=== PATIENT | female | born 1960 | race Caucasian/White ===

== ENCOUNTER → 2016-06-29 | Outpatient (CLI) | payer OTHER ==
[~2016-06-29] MED LIST: ALBUAER INH; AMT/50 PO; APIX1TAB3 PO; CHOL100010 PO; CRG25 PO; CYAN100020 PO; DLC5 PO; ESCI10TA17 PO; HYDR-4852 PO; HYDR12.56 PO; LEVO125T4 PO; MRLP17X PO; NTRGSL/4 UT; POTA1POW PO; PRLSR20 PO; ZCR20 PO
--- NOTE | 2016-06-29 16:04 | DIAGNOSTIC IMAGING REPORT ---
CT SCAN OF THE CHEST WITHOUT IV CONTRAST CLINICAL HISTORY: Sarcoidosis. Pulmonary nodule. COMPARISON STUDY: Chest CT dated 10/01/2015. TECHNIQUE: CT scan of the thorax was performed from the thoracic inlet to the upper abdomen. Images are reviewed in the axial, sagittal, and coronal planes. IV contrast was not administered for this examination as per the front clinician. CT DOSE: 877.17 mGy.cm FINDINGS: Thyroid: Atrophic versus surgically absent. Thoracic aorta: The thoracic aorta is normal in caliber and demonstrates standard 3-vessel arch anatomy. Heart: A 2-lead cardiac pacemaker is present in the left chest wall. Leads terminate in the right atrial appendage and the right ventricle. The heart is normal in size and there is a trace pericardial effusion. There are scattered coronary artery calcifications. The pulmonary trunk is normal in caliber. Lungs and pleural spaces: There are subtle emphysematous changes suggested at the apices There is no airspace consolidation or pleural effusion. Scattered calcified granulomas are identified. The trachea and central airways are clear. There is an 11 mm groundglass nodule in the left lower lobe seen on axial image #154. This has increased in conspicuity from previous . A 3 mm groundglass nodule in the left upper lobe as seen on image #95 is unchanged. No new pulmonary nodules are identified. Mediastinum: There are calcified mediastinal lymph nodes. No pathologically enlarged mediastinal lymph nodes are seen. Estelle: Not well assessed without IV contrast. There are small calcified hilar lymph nodes. Axillae: There is no axillary lymphadenopathy. Upper abdomen: There is evidence of hepatic steatosis. The patient is status post cholecystectomy. There is glandular atrophy of the visualized pancreas. Skeletal structures: The skeletal structures are osteopenic. No lytic or blastic bony lesions are seen. Mild degenerative changes are noted in the thoracic spine. IMPRESSION: 1. Suspect subtle emphysematous change. There is no airspace consolidation or pleural effusion. 2. There is no mediastinal or hilar lymphadenopathy. 3. There is evidence of remote granulomas infection, including calcified mediastinal and hilar lymph nodes as well as numerous small calcified pulmonary granulomas. 4. Again seen are 2 groundglass nodules within the left lung. The largest nodule in the left lower lobe appears increasingly conspicuous and has likely modestly increased in size from previous. This now measures a maximum of 11 mm (the previous measurement of 5 mm was likely underestimated). A 6 month follow-up examination is recommended as a low-grade neoplasm could have this appearance. Electronically signed by: Amrik Reed M.D. 06/29/2016 4:02 PM Dictated Date/Time: 06/29/2016 3:53 PM
== END | disposition home or self-care (01) ==
LOC: C.CTS 15:41
PROVIDERS: ATTEND Physician Assistant
DX: D86.9 Sarcoidosis, unspecified (principal); R91.1 Solitary pulmonary nodule

== ENCOUNTER 2017-05-31 11:04 | Inpatient (IN) | payer OTHER ==
[~2017-05-31] VITALS: Ht 157.5 cm; Wt 102.3 kg
[~2017-05-31 11:04] MED LIST changes: +CEFU1TAB36 PO; -LEVO125T4 PO; +LEVO125T5 PO
[2017-05-31] MEDS ORDERED: ACETAMINOPHEN 500 MG TAB PO STA (11:15)
[2017-05-31] MEDS ORDERED: NITROGLYCERIN 2% OINTMENT 30GM TUBE EXT ONE (11:15)
--- NOTE | 2017-05-31 11:43 | DIAGNOSTIC IMAGING REPORT ---
CHEST ONE VIEW PORTABLE CLINICAL HISTORY: CHEST PAIN dyspnea COMPARISON STUDY: 11/23/2015 FINDINGS: Mild stable cardiomegaly. Permanent bipolar cardiac pacemaker in good position. Lungs are clear. Diaphragms are smooth. IMPRESSION: No acute process. The above report was generated using voice recognition software. It may contain grammatical, syntax or spelling errors. Electronically signed by: Jacky Baldwin M.D. 05/31/2017 11:42 AM Dictated Date/Time: 05/31/2017 11:42 AM
[2017-05-31 11:45] LABS: HEMATOCRIT 41.5 % (37-47); HEMOGLOBIN 14.4 g/dL (12.0-16.0); MEAN CELL VOLUME 91.4 fL (80-100); MEAN CORPUSCULAR HEMOGLOBIN 31.7 pg (25-34); MEAN CORPUSCULAR HGB CONC 34.7 g/dl (32-36); MEAN PLATELET VOLUME 9.2 fL (7.4-10.4); PLATELET COUNT 278 K/uL (130-400); RED CELL DISTRIBUTION WIDTH CV 14.3 % (11.5-14.5); RED CELL DISTRIBUTION WIDTH SD 46.9 fL (36.4-46.3); WHITE BLOOD COUNT 7.42 K/uL (4.8-10.8)
--- NOTE | 2017-05-31 11:46 | EMERGENCY ROOM VISIT NOTE ---
History Report prepared by Ava: Jennifer Delaney Under the Supervision of: Dr. Amrik Bruno M.D. First contact with patient: 11:09 Chief Complaint: CHEST PAIN Stated Complaint: CHEST PAIN Nursing Triage Summary: Pt. presents via ALS transport from home with reports of chest pain starting around 0900 this morning. She reports that the pain started in the left shoulder and then became more localized in the chest, describes the pain as squeezing. Pt. took two nitro at home without relief, so she called EMS. Pt. has pacemaker/defibrillater. History of sarcoidosis. EMS administered additonal dose of nitro which bbrought her chest pain from 10/10 pain to 2/10, 4mg of zofran for nausea and gave 324mg of ASA. History of Present Illness The patient is a 57 year old female who presents to the Emergency Room with complaints of an episode of left-sided chest pain beginning 2 hours [employer]. Around 9am this morning the patient developed left-sided chest pain while she was sitting in her chair. Her pain started in her left shoulder and radiated into her left breast. She describes her pain as "squeezing" and rates it as a 10/10 in severity. The patient took a nitro and waited 5 minutes. Her pain did not resolve so she took a second nitro and called an ambulance. The patient received 2 more nitro, 4 mg of Zofran, and 324 mg of aspirin. She states that about 45 minutes after her pain started, it resolved. The patient reports nausea. She denies vomiting, shortness of breath, and diaphoresis. She is currently complaining of a headache. The patient has a history of FL and sarcoidosis. She has a pacemaker/defibrillator. Source of History: patient Onset: 2 hours [employer] Position: chest Symptom Intensity: 10/10 Quality: other (squeezing) Timing: other (episode ) Modifying Factors (Relieving): other (nitro/aspirin/zofran) Associated Symptoms: + headache, + nausea, No diaphoresis, No SOB, No vomiting Review of Systems See HPI for pertinent positives & negatives. A total of 10 systems reviewed and were otherwise negative. Past Medical & Surgical Medical Problems: (1) Cardiac pacemaker in situ (2) Chest pain (3) Osteoarthrosis (4) Sarcoidosis, unspecified Family History Cancer Social History Smoking Status: Never Smoker Current/Historical Medications Scheduled Amitriptyline Hcl (Elavil), 75 MG PO HS Apixaban (Eliquis), 2.5 MG PO BID Biotin (Biotin 5000), 1 CAP PO DAILY Cholecalciferol (Vitamin D3), 1 TAB PO DAILY Cyanocobalamin (Vitamin B-12), 1,000 MCG PO DAILY Duloxetine Hcl (Cymbalta), 60 MG PO DAILY Fluticasone Furoate-Vilanterol (Breo Ellipta), 1 PUFF INH DAILY Folic Acid (Folvite), 1 MG PO DAILY Methotrexate (Methotrexate), 8 TAB PO WK Metoprolol Succ (Toprol Xl) (Toprol-Xl ), 50 MG PO BID Omeprazole (Prilosec), 40 MG PO DAILY Potassium Chloride (Micro-K Ext Rel), 10 MEQ PO DAILY Simvastatin (Zocor), 20 MG PO QPM Scheduled PRN Hydrocodone/Acetaminophen ([place]ebbetts 10/325 Tab), 1 TAB PO Q6H PRN for Pain Loratadine (Claritin), 10 MG PO DAILY PRN for Allergic Reaction Lorazepam (Ativan), 0.5-1 MG PO TID PRN for Anxiety Tizanidine (Zanaflex ), 4 MG PO Q6H PRN for Muscle Spasms Allergies Coded Allergies: Lidocaine (Unverified Allergy, Severe, ITCHY,RASH, 05/31/17) Penicillins (Unverified Allergy, Severe, ITCHY,RASH, 05/31/17) Adhesives (Verified Allergy, Unknown, RASH, SKIN IRRATATION, 05/31/17) Iodinated Diagnostic Agents (Verified Allergy, Unknown, UNKNOWN, 05/31/17) Lisinopril (Verified Allergy, Unknown, ANAPHYLAXIS, 05/31/17) Physical Exam Vital Signs Date Time Temp Pulse Resp B/P (MAP) Pulse Ox O2 Delivery O2 Flow Rate FiO2 05/31/17 11:44 71 16 127/71 99 05/31/17 11:20 75 05/31/17 11:05 94 Room Air 05/31/17 11:05 36.6 81 16 142/90 94 Room Air 05/31/17 11:05 94 Room Air Physical Exam GENERAL: Patient is in no acute distress. HEENT: No acute trauma, normocephalic atraumatic, mucous membranes moist, no nasal congestion, no scleral icterus. NECK: No stridor, no adenopathy, no meningismus, trachea is midline. LUNGS: Clear to auscultation bilaterally, no wheeze, no rhonchi, breath sounds equal. HEART: Without murmurs gallops or rubs, regular rate and rhythm. ABDOMEN: Soft, nontender, bowel sounds positive, no hernias, no peritonitis. EXTREMITIES: No cyanosis or edema, full range of motion of all the joints without pain or difficulty, no signs for acute trauma. NEUROLOGIC: Oriented x 3, no acute motor or sensory deficits, no focal weakness. SKIN: No rash, no jaundice, no diaphoresis. Medical Decision & Procedures ER Provider Diagnostic Interpretation: Radiology results as stated below per my review and radiologist interpretation: CHEST ONE VIEW PORTABLE CLINICAL HISTORY: CHEST PAIN dyspnea COMPARISON STUDY: 11/23/2015 FINDINGS: Mild stable cardiomegaly. Permanent bipolar cardiac pacemaker in good position. Lungs are clear. Diaphragms are smooth. IMPRESSION: No acute process. The above report was generated using voice recognition software. It may contain grammatical, syntax or spelling errors. Electronically signed by: Jacky Baldwin M.D. 05/31/2017 11:42 AM Dictated Date/Time: 05/31/2017 11:42 AM Laboratory Results 05/31/17 11:30 05/31/17 11:30 Test 05/31/17 11:30 Red Blood Count 4.54 M/uL (4.2-5.4) Mean Corpuscular Volume 91.4 fL (80-100) Mean Corpuscular Hemoglobin 31.7 pg (25-34) Mean Corpuscular Hemoglobin Concent 34.7 g/dl (32-36) RDW Standard Deviation 46.9 fL (36.4-46.3) RDW Coefficient of Variation 14.3 % (11.5-14.5) Mean Platelet Volume 9.2 fL (7.4-10.4) Prothrombin Time 10.0 SECONDS (9.0-12.0) Prothromb Time International Ratio 1.0 (0.9-1.1) Activated Partial Thromboplast Time 28.9 SECONDS (21.0-31.0) Partial Thromboplastin Ratio 1.1 Anion Gap 9.0 mmol/L (3-11) Est Creatinine Clear Calc Drug Dose 83.4 ml/min Estimated GFR () 82.2 Estimated GFR (Non- 70.9 BUN/Creatinine Ratio 7.9 (10-20) Calcium Level 8.8 mg/dl (8.5-10.1) Magnesium Level 2.2 mg/dl (1.8-2.4) Total Bilirubin 0.3 mg/dl (0.2-1) Aspartate Amino Transf (AST/SGOT) 20 U/L (15-37) Alanine Aminotransferase (ALT/SGPT) 35 U/L (12-78) Alkaline Phosphatase 121 U/L (45-117) Troponin I < 0.015 ng/ml (0-0.045) Total Protein 7.0 gm/dl (6.4-8.2) Albumin 3.3 gm/dl (3.4-5.0) Globulin 3.7 gm/dl (2.5-4.0) Albumin/Globulin Ratio 0.9 (0.9-2) Thyroid Stimulating Hormone (TSH) 1.110 uIu/ml (0.300-4.500) Laboratory results reviewed by me. Medications Administered Medications (Trade) Dose Ordered Sig/Yessy Route Start Time Stop Time Status Last Admin Dose Admin Nitroglycerin (Nitroglycerin 2% Oint) 1 inch NOW ONCE EXT 05/31/17 11:15 05/31/17 11:17 DC 05/31/17 11:43 1 INCH Acetaminophen (Tylenol Tab) 1,000 mg NOW STAT PO 05/31/17 11:15 05/31/17 11:17 DC 05/31/17 11:42 1,000 MG ECG Per My Interpretation Indication: chest pain Rate (beats per minute): 81 Rhythm: normal sinus Findings: LBBB, no ectopy, other (No ST elevation) Comparison ECG Date: no prior available ED Course 1109: The patient was evaluated in room C3. A complete history and physical exam was performed. 1115: Tylenol 1000 mg PO, Nitroglycerin 1 inch EXT 1225: I spoke with Dr. Puente. We discussed the patient's case. The patient will be evaluated by the [facility] for further management. 1229: I reassessed the patient at this time. She is resting comfortably. I discussed the results and treatment plan with the patient. I answered all pertaining questions that she had. She expressed understanding and verbalized agreement. Medical Decision Differential diagnoses includes FL, angina, aortic dissection, PE, pneumonia, pneumothorax, musculoskeletal pain, anemia. There is no leukocytosis or concerning anemia. No significant electrolyte abnormality, kidney failure or hepatitis. There is no coagulopathy. EKG shows a normal sinus rhythm with a left bundle-branch block, no acute ischemia. Cardiac enzyme testing times one is not consistent with acute cardiac injury. Chest film does not show pneumonia, mediastinal widening or pneumothorax. The patient had received aspirin and nitroglycerin prior to arrival, no further aspirin was given. The patient did receive 1 inch of Nitropaste. She received oral Tylenol for a headache. The patient is resting comfortably. Her pain has basically resolved. Given her cardiac history, given the relief with nitroglycerin and aspirin, further cardiac workup was felt warranted. I spoke to the patient and case management. The on-call hospitalist was consulted. Medication Reconcilliation Current Medication List: was personally reviewed by me Blood Pressure Screening Patient's blood pressure: Elevated blood pressure Blood pressure disposition: Elevated BP felt to be situational Consults Time Called: 1222 Consulting Physician: Dr. Puente Returned Call: [address] Puente. We discussed the patient's case. The patient will be evaluated by the [facility]ist Group for further management. Impression Primary Impression: Precordial chest pain Scribe Attestation The scribe's documentation has been prepared under my direction and personally reviewed by me in its entirety. I confirm that the note above accurately reflects all work, treatment, procedures, and medical decision making performed by me. Departure Information Dispostion Being Evaluated By Hospitalist Referrals Rico Mota M.D. (PCP) Patient Instructions My [facility]
[2017-05-31 11:47] LABS: PTT PATIENT 28.9 SECONDS (21.0-31.0)
[2017-05-31 12:10] LABS: ALBUMIN 3.3 gm/dl (3.4-5.0); ALT/SGPT 35 U/L (12-78); AST/SGOT 20 U/L (15-37); BLOOD UREA NITROGEN 7 mg/dl (7-18); CALCIUM 8.8 mg/dl (8.5-10.1); CARBON DIOXIDE 24 mmol/L (21-32); CREATININE 0.89 mg/dl (0.60-1.20); GLUCOSE 105 mg/dl (70-99); POTASSIUM 3.9 mmol/L (3.5-5.1); SODIUM 141 mmol/L (136-145)
[2017-05-31 12:14] LABS: ALKALINE PHOSPHATASE 121 U/L (45-117)
[2017-05-31] MEDS ORDERED: AMIT75TA2 PO (12:27)
[2017-05-31] MEDS ORDERED: OMEP40CA41 PO (12:27)
[2017-05-31] MEDS ORDERED: SIMV20TA2 PO (12:27)
[2017-05-31] MEDS ORDERED: CHOL1000 PO (12:27)
[2017-05-31] MEDS ORDERED: FLUT1INH INH (12:27)
[2017-05-31] MEDS ORDERED: DULO60CA44 PO (12:27)
[2017-05-31] MEDS ORDERED: CYAN50002 PO (12:27)
[2017-05-31] MEDS ORDERED: HYDR-4383 PO (12:27)
[2017-05-31] MEDS ORDERED: APIX1TAB PO (12:27)
[2017-05-31] MEDS ORDERED: POTA10CA28 PO (12:27)
[2017-05-31] MEDS ORDERED: METO100T44 PO (12:27)
[2017-05-31] MEDS ORDERED: FOLI1TAB8 PO (12:27)
[2017-05-31] MEDS ORDERED: METH2.5T PO (12:27)
[2017-05-31] MEDS ORDERED: BIOTCAP2 PO (12:27)
[2017-05-31] MEDS ORDERED: ZNF4 PO (12:27)
[2017-05-31] MEDS ORDERED: ATV/1 PO (12:27)
[2017-05-31] MEDS ORDERED: CLR10 PO (12:27)
--- NOTE | 2017-05-31 12:52 | History and Physical ---
History & Physical Date & Time of Service: May 31, 2017 at 12:52 Chief Complaint: Chest Pain Primary Care Physician: Rico Mota M.D. History of Present Illness Source: patient this is 57 yo F with medical hx of Sarcoidosis with Cardiac involvement , HTN . Hyperlipidemia , Hx of PE on Eliquis , presented with ER with complain of angina symptom since 9 am today morning Pt was sitting on the couch -felt severe crushing chest pain /heaviness with radiation to left arm , denies of dizzy spell or palpitation , felt SOB took 1 SL nitro with no improvement of symptom , did repeat 2 more SL and Called [address] to ER -pt was given full strength aspirin and SL nitro in ER she was chest pain free , feels very tired and wiped out did not feel any AICD firing has been having progressive SOB , ISAAC in past 2 months , walking up stairs, vacuuming makes her out of breath , needs to take multiple break denies of any chest heaviness associated with activity Pt has hx of DVT /PE in past , on Eliquis took AM dose this morning pt was recently treated with Keflex for sinus congestion , developed diarrhea , which has resolved denies of any fever or chills, no cough /no flu like symptom Social History Smoking Status: Never Smoker Multi-Drug Resistant Organisms History of MDRO: No Allergies Coded Allergies: Lidocaine (Unverified Allergy, Severe, ITCHY,RASH, 05/31/17) Penicillins (Unverified Allergy, Severe, ITCHY,RASH, 05/31/17) Adhesives (Verified Allergy, Unknown, RASH, SKIN IRRATATION, 05/31/17) Iodinated Diagnostic Agents (Verified Allergy, Unknown, UNKNOWN, 05/31/17) Lisinopril (Verified Allergy, Unknown, ANAPHYLAXIS, 05/31/17) Home Medications Scheduled Amitriptyline Hcl (Elavil), 75 MG PO HS Apixaban (Eliquis), 2.5 MG PO BID Biotin (Biotin 5000), 1 CAP PO DAILY Cholecalciferol (Vitamin D3), 1 TAB PO DAILY Cyanocobalamin (B-12), 1 TAB PO DAILY Duloxetine Hcl (Cymbalta), 60 MG PO DAILY Fluticasone Furoate-Vilanterol (Breo Ellipta), 1 PUFF INH DAILY Folic Acid (Folvite), 1 MG PO DAILY Methotrexate (Methotrexate), 8 TAB PO WK Metoprolol Succ (Toprol Xl) (Toprol-Xl ), 50 MG PO BID Omeprazole (Prilosec), 40 MG PO DAILY Potassium Chloride (Micro-K Ext Rel), 10 MEQ PO DAILY Simvastatin (Zocor), 20 MG PO QPM Scheduled PRN Hydrocodone/Acetaminophen (Ald[place] 10/325 Tab), 1 TAB PO Q6H PRN for Pain Loratadine (Claritin), 10 MG PO DAILY PRN for Allergic Reaction Lorazepam (Ativan), 0.5-1 MG PO TID PRN for Anxiety Tizanidine (Zanaflex ), 4 MG PO Q6H PRN for Muscle Spasms Review of Systems Constitutional: + weakness, + fatigue ENT: No hearing loss, No unusual epistaxis, No nasal symptoms, No sore throat, No tinnitus, No dental problems, No trouble swallowing, No problem reported Respiratory: + shortness of breath, + dyspnea on exertion Cardiovascular: + chest pain (substernal chest heaviness with radiation to left arm ) Abdomen: + diarrhea (resolved ), + problem reported (had diarrhea 2 days ago while on antibiotic , has resolved today ) Musculoskeletal: + joint pain (chronic bilateral arthitis pain ) Genitourinary - Female: No dysuria, No urinary frequency, No urinary urgency, No urinary incontinence, No urinary retention, No hematuria, No dysmenorrhea, No menorrhagia, No metrorrhagia, No rash, No vaginal bleeding, No vaginal discharge, No vaginal itching, No vulvodynia, No , No problem reported Neurologic: + weakness, + vertigo Physical Exam Vital Signs Date Time Temp Pulse Resp B/P (MAP) Pulse Ox O2 Delivery O2 Flow Rate FiO2 05/31/17 11:44 71 16 127/71 99 05/31/17 11:20 75 05/31/17 11:05 94 Room Air 05/31/17 11:05 36.6 81 16 142/90 94 Room Air 05/31/17 11:05 94 Room Air General Appearance: no apparent distress Head: normocephalic, atraumatic Eyes: normal inspection, PERRL, EOMI, sclerae normal ENT: normal ENT inspection Neck: thyroid normal, no JVD, no carotid bruits, trachea midline Respiratory/Chest: lungs clear, normal breath sounds, no respiratory distress Cardiovascular: regular rate, rhythm, no edema, no JVD, normal peripheral pulses Abdomen/GI: normal bowel sounds, non tender, soft Extremities/Musculoskelatal: normal inspection, no calf tenderness, normal capillary refill, no pedal edema Neurologic/Psych: no motor/sensory deficits, alert, oriented x 3 Skin: normal color, warm/dry, no rash Diagnostics Laboratory Results Results Past 24 Hours Test 05/31/17 11:30 Range/Units White Blood Count 7.42 4.8-10.8 K/uL Red Blood Count 4.54 4.2-5.4 M/uL Hemoglobin 14.4 12.0-16.0 g/dL Hematocrit 41.5 37-47 % Mean Corpuscular Volume 91.4 80-100 fL Mean Corpuscular Hemoglobin 31.7 25-34 pg Mean Corpuscular Hemoglobin Concent 34.7 32-36 g/dl RDW Standard Deviation 46.9 36.4-46.3 fL RDW Coefficient of Variation 14.3 11.5-14.5 % Platelet Count 278 130-400 K/uL Mean Platelet Volume 9.2 7.4-10.4 fL Prothrombin Time 10.0 9.0-12.0 SECONDS Prothromb Time International Ratio 1.0 0.9-1.1 Activated Partial Thromboplast Time 28.9 21.0-31.0 SECONDS Partial Thromboplastin Ratio 1.1 Sodium Level 141 136-145 mmol/L Potassium Level 3.9 3.5-5.1 mmol/L Chloride Level 108 98-107 mmol/L Carbon Dioxide Level 24 21-32 mmol/L Anion Gap 9.0 3-11 mmol/L Blood Urea Nitrogen 7 7-18 mg/dl Creatinine 0.89 0.60-1.20 mg/dl Est Creatinine Clear Calc Drug Dose 83.4 ml/min Estimated GFR () 82.2 Estimated GFR (Non- 70.9 BUN/Creatinine Ratio 7.9 10-20 Random Glucose 105 70-99 mg/dl Calcium Level 8.8 8.5-10.1 mg/dl Total Bilirubin 0.3 0.2-1 mg/dl Aspartate Amino Transf (AST/SGOT) 20 15-37 U/L Alanine Aminotransferase (ALT/SGPT) 35 12-78 U/L Alkaline Phosphatase 121 45-117 U/L Troponin I < 0.015 0-0.045 ng/ml Total Protein 7.0 6.4-8.2 gm/dl Albumin 3.3 3.4-5.0 gm/dl Globulin 3.7 2.5-4.0 gm/dl Albumin/Globulin Ratio 0.9 0.9-2 Diagnostic Radiology CHEST ONE VIEW PORTABLE CLINICAL HISTORY: CHEST PAIN dyspnea COMPARISON STUDY: 11/23/2015 FINDINGS: Mild stable cardiomegaly. Permanent bipolar cardiac pacemaker in good position. Lungs are clear. Diaphragms are smooth. IMPRESSION: No acute process. EKG Vent. rate 81 BPM MA interval 182 ms QRS duration 136 ms QT/QTc 426/494 ms P-R-T axes 36 -43 92 Normal sinus rhythm Left axis deviation Left bundle branch block Abnormal ECG No previous ECGs available Impression Assessment and Plan CHEST PAIN SYMPTOM EQUIVALENT FOR UNSTABLE ANGINA presents with left sided /central chest heaviness , discomfort since 9 am this morning with pain discomfort radiation to left arm required multiple dose on SL nitro ( x 4 ) to ease up the symptom ordered nitro paste in ER at present chest pain free no prior hx of CAD or SD Has cardiac cath in [facility] in 2013 -which showed normal coronaries, normal Rt ventricular pressure , normal LV function ECHO : normal LV except for asymmetric septal motion due to bundle branch block pt will be admitted to tele, serial cardiac markers ordered ( initial troponin negative ) resting ECHO , Cardiology eval , case D/w automobile sales consultant Cardiology NPO past midnight for possible stress test ( pt will need Nc stress test / unable to walk on treadmill due to bilateral knee arthritis ) pt is continued with Beta katie , statin , added Aspirin 81 mg daily HX OF CARDIAC SARCOIDOSIS S/P AICD PLACEMENT : Holter monitor in 2013 showed Mobitz type 2 block had pacemaker /AICD placed in 2013 pt denies of any recent AICD firing ordered for AICD /pace maker interrogation SARCOIDOSIS : Dx in 2005 with cardiac involvement follow with Rheumatology Dr Leyva Taked MTX once a week ( Sat ) /Folic Acid not on steroid PROLONG QTC : Qtc > 490 hold amitriptyline , Cymbalta daily EKG follow K /Mg level HTN : BP stable cont Beta katie HX OF ALLERGIC RHINITIS : Cont Out pt INH HYPERLIPIDEMIA on statin ordered for fasting lipid panel in AM DEPRESSION: Hold Cymbalta and Remeron for prolong Qtc HX OF PE AND DVT IN PAST : on Eliquis 2.5 mg BID took AM dose this AM FULL CODE DVT PROPHYLAXIS : on Eliquis DISPOSITION : expected to be discharged home when medically stable Cardiology follow up with Dr Tong Level of Care Telemetry Resuscitation Status FULL RESUSCITATION VTE Prophylaxis VTE Risk Assessment Done? Y/N: Yes Risk Level: Moderate Given or contraindicated: Other Anticoagulation (on Eliquis ) Additional Copies To Pj Tong, DO
[2017-05-31] MEDS ORDERED: ACETAMINOPHEN 325 MG TAB PO PRN (13:30)
[2017-05-31] MEDS ORDERED: POLYETHYLENE (MIRALAX) 17 GM PACK PO PRN (13:30)
[2017-05-31] MEDS ORDERED: MAGNESIUM HYDROXIDE SUSP 30 ML UDC PO PRN (13:30)
[2017-05-31] MEDS ORDERED: ONDANSETRON INJ 2 MG/ML 2 ML VIAL IV PRN (13:30)
[2017-05-31] MEDS ORDERED: IV FLUIDS COMPLETED PRN ×2 (13:45→15:45)
[2017-05-31] MEDS ORDERED: LORATADINE 10 MG TAB PO PRN (13:45)
[2017-05-31 13:55] VITALS: BP 136/82; PULSE 67; TEMP 36.5; O2SAT 99; Ht 157.5 cm; Wt 102.3 kg
[2017-05-31] MEDS ORDERED: CYAN10005 PO (14:32)
[2017-05-31] MEDS: NITROGLYCERIN 2% OINTMENT 30GM TUBE EXT SCH ×2 (14:38→19:44)
[2017-05-31 15:31] VITALS: BP 124/81; PULSE 70; TEMP 36.8; O2SAT 92
--- NOTE | 2017-05-31 15:45 | CARDIOLOGY CONSULTATION ---
DATE OF CONSULTATION: 05/31/2017 REFERRING: Dr. Puente. PRIMARY CARE PHYSICIAN: Dr. Mota at [facility]. INDICATIONS: Chest pain. 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 device, hypertension, hyperlipidemia, past DVT and pulmonary embolism on chronic Eliquis, history of associated arthritic issues with sarcoid, on chronic methotrexate suppression with intermittent corticosteroids. The patient notes having presented to the Emergency Room with symptoms of substernal chest pain radiating to the left axilla and arm, heavy pressure and pain beginning while at rest this morning. She took 2 sublingual nitroglycerins and an aspirin before calling 911. Symptoms eventually eased on the way to the Emergency Room with full strength aspirin and nitroglycerin. On presentation here noted marked fatigue and noted no further chest pain. EKG was nonrevealing with chronic left bundle branch block present. She noted no defibrillator activation was not aware of any tachypalpitations, has recently been treated for sinusitis and upper respiratory infection with Keflex, has had indigestion, diarrhea, GI upset as well. Notes no melena, hematochezia, dysuria or hematuria. Notes no interruption in her Eliquis or other medications. Notes no acute weight loss or gain. Notes no orthopnea, PND or peripheral edema. Has been evaluated for cardiac issues in the past, but last diagnostic cardiac catheterization performed in 2012 revealed no obstructive coronary artery disease. The patient other than fatigue now notes no acute complaints. ALLERGIES: LIDOCAINE, PENICILLIN, ADHESIVES, IODINATED CONTRAST, AND LISINOPRIL. MEDICATIONS: Prior to hospitalization were amitriptyline, apixaban 2.5 b.i.d., vitamin B12 1 tablet daily, Cymbalta 60 mg p.o. daily, folic acid 1 mg p.o. daily, methotrexate 8 mg weekly, metoprolol succinate 50 mg b.i.d., omeprazole 40 mg p.o. daily, potassium chloride 10 mEq p.o. daily, and Zocor 20 mg p.o. daily. PAST SURGICAL HISTORY: Notable for pacer defibrillator implantation, appendectomy, and cholecystectomy. FAMILY HISTORY: Positive for hypertension and malignancy. SOCIAL HISTORY: The patient is a nonsmoker, rare drinker. PHYSICAL EXAMINATION: GENERAL: The patient is currently pale appearing, age-appropriate female in no acute distress. VITAL SIGNS: Reveal a heart rate of 67; blood pressure 136/82, equal in both arms. HEENT: Normocephalic, atraumatic. Nares without discharge. Throat was clear. NECK: Supple without thyromegaly, lymphadenopathy, JVD. There are no carotid bruits. Carotid pulses are 2/4 without delay. LUNGS: Generally clear to auscultation. CARDIOVASCULAR: Regular. There is no S3 gallop. ABDOMEN: Soft, nontender. There is no palpable splenomegaly. There is no hepatojugular reflux. EXTREMITIES: Without cyanosis or clubbing. There is no peripheral edema. There is no palpable cord or Homans sign. NEUROLOGIC: The patient is answering questions appropriately. LABORATORY AND IMAGING DATA: Outpatient records reviewed, pacer defibrillator interrogation in December [address] Jase's device DR [id number] model, battery life at that time was 4.5 years with normal lead function. Laboratory studies since admission - EKG revealed sinus rhythm with left bundle branch block at a rate of 81. White cell count is 7.4, hemoglobin is 14.4, and hematocrit is 41.5. Sodium is 141, potassium is 3.9, chloride is 108, bicarbonate is 24, BUN is 7, and creatinine is 0.89. AST and ALT are normal. TSH is 1.1. Chest x-ray revealed no infiltrate or edema. 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 The patient presents now with severe chest pain. She has intermittent underlying corticosteroid use with chronic immunosuppressive therapy with methotrexate, recent course was notable for upper respiratory infection treated with Keflex with gastrointestinal upset. Symptoms, however, are suspicious for angina. Echocardiogram is nondiagnostic given the left bundle branch block. Initial troponin is negative despite extended episode of discomfort. Discussed options of management. PLAN: Will review echocardiogram ordered. Keep n.p.o. after midnight. Hold Eliquis this evening with thoughts of possible pursuing diagnostic cardiac catheterization as further evaluation. Topical nitrates have already been ordered, blood pressure and heart rate are controlled. She is already on the beta katie. Contrast allergy will be investigated as well as we will review current use of Eliquis at lower dose.
[2017-05-31] MEDS ORDERED: PERFLUTREN LIPID MICROSPHERE (DEFINITY) IV ONE (16:16)
[2017-05-31 19:10] VITALS: BP 124/76; PULSE 76; TEMP 36.7; O2SAT 92
[2017-05-31] MEDS: NITROGLYCERIN 0.4 MG SL PER TAB CHARGE SL PRN ×2 (19:29→19:38)
[2017-05-31 19:39] VITALS: BP 130/77; PULSE 78; O2SAT 92
[2017-05-31] MEDS ORDERED: APIXABAN 2.5 MG TAB PO SCH (21:00)
[2017-05-31] MEDS: METOPROLOL SUCC 50MG EXT REL TAB PO SCH (21:23)
[2017-05-31] MEDS: SIMVASTATIN 20 MG TAB PO SCH (21:24)
[2017-05-31] MEDS: HYDROCODONE/ACETAMI 10/325 TAB PO PRN (23:37)
[2017-05-31] MEDS: LORAZEPAM 0.5 MG TAB PO PRN (23:37)
[2017-06-01] VITALS (49 sets, daily range): BP systolic 106–184; BP diastolic 69–129; PULSE 65–99; TEMP 36.4–36.9; O2SAT 85–100
[2017-06-01] MEDS: MoRPHine SULFATE 2 MG/ML CARP IV PRN ×3 (01:54→12:39)
[2017-06-01] MEDS: NITROGLYCERIN 2% OINTMENT 30GM TUBE EXT SCH ×4 (01:59→21:58)
[2017-06-01] MEDS: NITROGLYCERIN 0.4 MG SL PER TAB CHARGE SL PRN ×2 (02:32→02:40)
[2017-06-01 08:02] LABS: HEMATOCRIT 38.9 % (37-47); HEMOGLOBIN 13.3 g/dL (12.0-16.0); MEAN CORPUSCULAR HEMOGLOBIN 31.4 pg (25-34); MEAN CORPUSCULAR HGB CONC 34.2 g/dl (32-36); MEAN PLATELET VOLUME 9.2 fL (7.4-10.4); PLATELET COUNT 316 K/uL (130-400); RED CELL DISTRIBUTION WIDTH CV 14.1 % (11.5-14.5)
[2017-06-01] MEDS: POTASSIUM CHLORIDE 10 MEQ TABCR PO SCH (08:27)
[2017-06-01] MEDS: HYDROCODONE/ACETAMI 10/325 TAB PO PRN ×2 (08:27→23:48)
[2017-06-01] MEDS: METOPROLOL SUCC 50MG EXT REL TAB PO SCH ×2 (08:27→22:01)
[2017-06-01] MEDS: CHOLECALCIFEROL 1000 INTER.UNIT TAB PO SCH (08:28)
[2017-06-01] MEDS: ASPIRIN 81 MG ECTAB PO SCH (08:29)
[2017-06-01] MEDS: CYANOCOBALAMIN 500 MCG TAB (VIT B-12) PO SCH (08:30)
[2017-06-01] MEDS: FLUTICASONE PROPIONATE NA SPR 16 GM BTL SCH (08:31)
[2017-06-01 08:32] LABS: CALCIUM 9.1 mg/dl (8.5-10.1); CREATININE 0.85 mg/dl (0.60-1.20); POTASSIUM 4.1 mmol/L (3.5-5.1)
[2017-06-01] MEDS ORDERED: NON-FORMULARY MEDICATION (Biotin (Biotin 5000) 1 CAP) PO SCH (09:00)
[2017-06-01] MEDS ORDERED: PANTOprazole SOD 40 MG TAB PO SCH (09:00)
--- NOTE | 2017-06-01 10:15 | ECHOCARDIOGRAM REPORT ---
*NOTICE TO RECEIVING [employer] This information is strictly Confidential and protected under [place] law. [place] law prohibits you from making any further disclosure of this information unless further disclosure is expressly permitted by the written consent of the person to whom it pertains or is authorized by law. A general authorization for the release of medical or other information is not sufficient for this purpose. Hospital accepts no responsibility if the information is made available to any other person, INCLUDING THE PATIENT. Interpretation Summary * Name: MARILYN YA Study Date: 05/31/2017 03:49 PM BP: 124/81 mmHg * Patient Location: C.2T\S\S239\S\1 HR: 67 * : 1960 (M/d/yyyy) Gender: Female Height: 63 in * Age: 57 yrs Ethnicity: [place] Weight: 254 lb * Ordering Physician: Jory Puente * Referring Physician: Self, Referred * Performed By: Michelle Long RDCS * * Reason For Study: CHEST PAIN * BSA: 2.1 m2 * -- Conclusions -- * Normal LV chamber size with mild concentric LVH. * Low normal LV systolic function with abnormal septal wall motion consistent with LBBB pattern, otherwise, normal. EF 50-55%. * Grade I diastolic dysfunction. * No significant valvular pathology. * Moderate sized epicardial fat pad is present. No significant pericardial effusion. Procedure Details * A contrast injection of Definity was performed to improve assessment of LV function. * Contrast was injected into an intravenous site in the left arm. * One vial of Definity ultrasound contrast was diluted in normal saline to a total volume of 10 ml. A total of '2' ml of solution was administered during imaging. * Lot # [id number] of Definity utilized for procedure. * Expiration date APR 28. * The attending nurse who injected the contrast agent was JES SHAH. Left Ventricle * The left ventricle is normal in size. * There is mild concentric left ventricular hypertrophy. * Left ventricular systolic function is low normal. * Ejection Fraction = 50-55%. * Septal motion is consistent with conduction abnormality. Right Ventricle * The right ventricular cavity size is normal (basal dimension <4.2 cm in right ventricular apical 4-chamber view). * There is a pacemaker lead in the right ventricle. * The right ventricular systolic function is normal as assessed by tricuspid annular plane systolic excursion (TAPSE) (normal >1.5 cm). Atria * The left atrial size is normal. * Right atrium not well visualized. * No ASD detected; PFO is not assessed. Mitral Valve * The mitral valve is normal in structure and function. Tricuspid Valve * The tricuspid valve is normal in structure and function. Aortic Valve * The aortic valve is normal in structure and function. Pulmonic Valve * The pulmonary valve is not well seen, but the Doppler examination is normal without significant regurgitation or stenosis. Great Vessels * The aortic root is normal size. Pericardium/Pleural * Moderate sized epicardial fat pad is present. No significant pericardial effusion. MMode 2D Measurements and Calculations IVSd 1.3 cm IVSs 1.5 cm LVIDd 4.4 cm LVIDs 3.3 cm LVPWd 1.2 cm LVPWs 1.4 cm IVS/LVPW 1.1 FS 25.7 % EDV(Teich) 87.3 ml ESV(Teich) 43.0 ml EF(Teich) 50.8 % EDV(cubed) 84.8 ml ESV(cubed) 34.8 ml EF(cubed) 59.0 % % IVS thick 18.4 % % LVPW thick 18.2 % LV mass(C)d 195.8 grams LV mass(C)dI 91.5 grams/m\S\2 LV mass(C)s 165.6 grams LV mass(C)sI 77.4 grams/m\S\2 SV(Teich) 44.4 ml SI(Teich) 20.7 ml/m\S\2 SV(cubed) 50.0 ml SI(cubed) 23.3 ml/m\S\2 Ao root diam 2.8 cm Ao root area 6.0 cm\S\2 LA dimension 3.7 cm LA/Ao 1.3 LVAd ap4 35.8 cm\S\2 LVLd ap4 8.0 cm EDV(MOD-sp4) 128.5 ml EDV(sp4-el) 135.2 ml LVAs ap4 22.5 cm\S\2 LVLs ap4 7.0 cm ESV(MOD-sp4) 57.3 ml ESV(sp4-el) 61.6 ml EF(MOD-sp4) 55.4 % EF(sp4-el) 54.4 % LVAd ap2 26.6 cm\S\2 LVLd ap2 7.1 cm EDV(MOD-sp2) 84.2 ml EDV(sp2-el) 85.0 ml LVAs ap2 15.9 cm\S\2 LVLs ap2 5.8 cm ESV(MOD-sp2) 36.0 ml ESV(sp2-el) 37.0 ml EF(MOD-sp2) 57.2 % EF(sp2-el) 56.5 % LVLd %diff -13.80 % EDV(MOD-bp) 111.3 ml LVLs %diff -19.70 % ESV(MOD-bp) 49.1 ml EF(MOD-bp) 55.9 % SV(MOD-sp4) 71.1 ml SI(MOD-sp4) 33.2 ml/m\S\2 SV(MOD-sp2) 48.1 ml SI(MOD-sp2) 22.5 ml/m\S\2 SV(MOD-bp) 62.2 ml SI(MOD-bp) 29.1 ml/m\S\2 SV(sp4-el) 73.6 ml SI(sp4-el) 34.4 ml/m\S\2 SV(sp2-el) 48.0 ml SI(sp2-el) 22.4 ml/m\S\2 Doppler Measurements and Calculations MV E max joe 41.1 cm/sec MV A max joe 68.7 cm/sec MV E/A 0.60 MV dec time 0.23 sec Ao V2 max 160.2 cm/sec Ao max PG 10.3 mmHg Ao max PG (full) 7.1 mmHg LV V1 max PG 3.2 mmHg LV V1 max 89.4 cm/sec TR max joe 206.8 cm/sec
[2017-06-01] MEDS ORDERED: METHYLPREDNISOLONE 125 MG VIAL ONE ×2 (10:48→14:27)
[2017-06-01] MEDS ORDERED: NiCARDipine HCL INJ 2.5 MG/ML 10 ML AMP ONE (10:48)
[2017-06-01] MEDS: FENTANYL CITRATE INJ 50 MCG/1 ML 2 ML VIAL ONE (10:48)
[2017-06-01] MEDS ORDERED: MIDAZOLAM HCL 1 MG/ML 2ML VIAL ONE (10:48)
[2017-06-01] MEDS ORDERED: HEPARIN SOD (PORCINE) 1000 UNIT/ML 10 ML VIAL ONE (10:48)
[2017-06-01] MEDS ORDERED: NITROGLYCERIN/D5W 100MCG/ML 20ML SYR ONE (10:49)
[2017-06-01] MEDS ORDERED: DiphenhydrAMINE HCL 50 MG/ML VIAL ONE (10:49)
[2017-06-01] MEDS ORDERED: RANITIDINE HCL 25 MG/ML INJ ONE (10:49)
--- NOTE | 2017-06-01 11:07 | Pre Sedation Assessment ---
Pre Sedation Assessment General Date of Sedation: Jun 01, 2017. Vital Signs Past 12 Hours Date Time Temp Pulse Resp B/P (MAP) Pulse Ox O2 Delivery O2 Flow Rate FiO2 06/01/17 08:00 Room Air 06/01/17 07:59 36.5 67 16 144/73 (96) 98 Nasal Cannula 2.0 06/01/17 04:00 Room Air 06/01/17 03:47 67 134/82 (99) 06/01/17 02:46 135/82 (99) 92 Nasal Cannula 2.0 06/01/17 02:36 128/80 (96) 95 Nasal Cannula 2.0 06/01/17 02:34 95 Nasal Cannula 2.0 06/01/17 02:33 36.4 75 24 143/80 (101) 91 Nasal Cannula 2.0 06/01/17 02:15 36.5 75 22 149/75 (99) 93 Room Air 06/01/17 00:10 36.9 65 16 124/69 (87) 94 Room Air 06/01/17 00:00 Room Air Review Cardiovascular: regular rate, rhythm, no edema Lungs: lungs clear Pre-Sedation Airway Assessment Smoking Status: Never Smoker Hx of Sleep Apnea: No Short Thick Neck: No Thyro-mental Distance: > 3 Finger Breadths Oral Cavity: WNL Mallampati Classification: Class II ASA Classification: Class III NPO Status Date of Last Intake of Fluids: May 31, 2017 Time of Last Intake of Fluids: 2100 Date of Last Intake of Solids: May 31, 2017 Time of Last Intake of Solids: 1800 Procedure Planning Contraindications for Sedation: None Current Medications Reviewed: Yes Notes The planned sedation has been discussed with the patient. Informed Consent was obtained. I have identified the patient, determined the appropriateness of sedation and have assessed the patient immediately prior to the procedure. All medicine(s) and interventions are by my order.
[2017-06-01] MEDS ORDERED: METOPROLOL TARTRATE 1 MG/ML VIAL ONE ×2 (11:35→11:44)
[2017-06-01] MEDS ORDERED: SODIUM CHLORIDE 0.9% 1000ML 1,000 ML IV SCH (11:56)
[2017-06-01] MEDS ORDERED: SODIUM CHLORIDE 0.9% 1000ML 250 ML IV PRN (11:56)
[2017-06-01] MEDS ORDERED: NITROGLYCERIN 0.4 MG SL PER TAB CHARGE SL PRN (12:00)
--- NOTE | 2017-06-01 12:13 | [facility] Post Operative Brief Note ---
Preliminary Procedure Note Procedure Date Jun 01, 2017. Pre-Procedure Diagnosis Angina AUC Score 8 Post-Procedure Diagnosis Normal Coronary Arteries Procedure(s) Performed Coronary Angiography, Left Heart Cath, Aortography Envelope Sealing Machine Operator Dr. Bernabe Martinez Vermin Exterminator(s) Rich Mauro Estimated Blood Loss <20cc Medication(s) Fentanyl (12.5 mcg IV x 4), Nicardipine (250 mg intraarterial x3), Nitroglycerin (200mcg intraarterial x2), Versed (1mg IV ), Lidocaine 1% (local infiltration) Preliminary Findings Right dominant coronary anatomy Normal coronary arteries Chest pain at completion of procedure Repeat coronary imaging, ao angiogram without abnormality Hypertensive blood pressure response Recommendations Medical therapy and/or Counseling Specimens None Fluids (cc crystalloids) 108 Anesthesia Start 1114 End 1154 Alyssa Clark Procedural Complication(s) None Disposition PCU
[2017-06-01] MEDS: LORAZEPAM 0.5 MG TAB PO PRN (12:17)
[2017-06-01] MEDS: ALUMINUM/MAGNESIUM/SIMETH (MAALOX MAX) 30 ML UDC PO PRN (12:20)
[2017-06-01] MEDS ORDERED: MoRPHine SULFATE 4 MG/ML 1 ML CARP\\VIAL IV STA (12:51)
--- NOTE | 2017-06-01 14:29 | Progress Note ---
Medicine Progress Note Date & Time of Visit: Jun 01, 2017 at 12:53. Subjective 57 yo F with h/o PE and DVT who presents with acute chest pain. -cardiac cath and subsequent issues as below -pt is diaphoretic and having more trouble breathing -she is unable to give me a full history because she feels poorly -she reports 8/10 pain in the center of her chest. -she reports not feeling well. Objective Last 8 Hrs Date Time Temp Pulse Resp B/P (MAP) Pulse Ox O2 Delivery O2 Flow Rate FiO2 06/01/17 12:45 81 20 172/114 (133) 88 Nasal Cannula 3.0 06/01/17 12:30 83 20 184/129 (147) 90 Nasal Cannula 3.0 06/01/17 12:15 84 22 167/108 (127) 85 Room Air 06/01/17 12:04 82 18 156/92 (113) 98 Room Air 06/01/17 11:54 84 18 158/96 (116) 98 Room Air 06/01/17 08:00 Room Air 06/01/17 07:59 36.5 67 16 144/73 (96) 98 Nasal Cannula 2.0 Physical Exam: GEN:obese , in acute respiratory distress, alert and appropriate, diaphoretic HEENT: NC/AT, normal sclerae, MMM CARDIO: tachy rate, S1/2 heard without m/g/r but distant heart sounds, 2+ peripheral pulses and extremities are warm and well-perfused. Radial band on RUE. LUNGS: CTA bilaterally, no crackles, rales or wheezes, good diaphragmatic excursion ABD: soft, non-tender, non-distended, no rebound or guarding EXTREMITY: RP and DP palpable 2+ bilat, no LE swelling or edema, extremities are warm and well-perfused NEURO: CN 2-12 grossly intact MUSC: moving all extremities equally. SKIN: warm and diaphoretic Laboratory Results: 06/01/17 07:47 06/01/17 07:47 Test 05/31/17 11:30 05/31/17 22:15 06/01/17 07:47 06/01/17 13:07 Prothrombin Time 10.0 SECONDS (9.0-12.0) Prothromb Time International Ratio 1.0 (0.9-1.1) Activated Partial Thromboplast Time 28.9 SECONDS (21.0-31.0) Partial Thromboplastin Ratio 1.1 Total Bilirubin 0.3 mg/dl (0.2-1) Aspartate Amino Transf (AST/SGOT) 20 U/L (15-37) Alanine Aminotransferase (ALT/SGPT) 35 U/L (12-78) Alkaline Phosphatase 121 U/L (45-117) Total Protein 7.0 gm/dl (6.4-8.2) Albumin 3.3 gm/dl (3.4-5.0) Globulin 3.7 gm/dl (2.5-4.0) Albumin/Globulin Ratio 0.9 (0.9-2) Thyroid Stimulating Hormone (TSH) 1.110 uIu/ml (0.300-4.500) Urine Color YELLOW Urine Appearance CLEAR (CLEAR) Urine pH 7.0 (4.5-7.5) Urine Specific [place] <= 1.005 (1.000-1.030) Urine Protein NEG (NEG) Urine Glucose (UA) NEG (NEG) Urine Ketones NEG (NEG) Urine Occult Blood 1+ (NEG) Urine Nitrite NEG (NEG) Urine Bilirubin NEG (NEG) Urine Urobilinogen NEG (NEG) Urine Leukocyte Esterase NEG (NEG) Urine RBC 0-4 /hpf (0-4) Urine WBC 0 /hpf (0-5) Urine Epithelial Cells >30 /lpf (0-5) Urine Bacteria NEG (NEG) Urine Hyaline Casts 0 /lpf (0-5) Red Blood Count 4.23 M/uL (4.2-5.4) Mean Corpuscular Volume 92.0 fL (80-100) Mean Corpuscular Hemoglobin 31.4 pg (25-34) Mean Corpuscular Hemoglobin Concent 34.2 g/dl (32-36) RDW Standard Deviation 46.0 fL (36.4-46.3) RDW Coefficient of Variation 14.1 % (11.5-14.5) Mean Platelet Volume 9.2 fL (7.4-10.4) Anion Gap 5.0 mmol/L (3-11) Est Creatinine Clear Calc Drug Dose 85.6 ml/min Estimated GFR () 86.9 Estimated GFR (Non- 75.0 BUN/Creatinine Ratio 13.3 (10-20) Calcium Level 9.1 mg/dl (8.5-10.1) Magnesium Level 2.1 mg/dl (1.8-2.4) Triglycerides Level 58 mg/dl (0-150) Cholesterol Level 159 mg/dl (0-200) HDL Cholesterol 57 mg/dl LDL Cholesterol, Calculated 90 mg/dl VLDL Cholesterol, Calculated 12 mg/dl Cholesterol/HDL Ratio 2.8 Troponin I 0.103 ng/ml (0-0.045) Test 06/01/17 15:39 Last 24 Hours Test 05/31/17 19:41 05/31/17 22:15 06/01/17 01:12 06/01/17 07:47 Troponin I < 0.015 ng/ml < 0.015 ng/ml < 0.015 ng/ml Urine Color YELLOW Urine Appearance CLEAR Urine pH 7.0 Urine Specific [place] <= 1.005 Urine Protein NEG Urine Glucose (UA) NEG Urine Ketones NEG Urine Occult Blood 1+ Urine Nitrite NEG Urine Bilirubin NEG Urine Urobilinogen NEG Urine Leukocyte Esterase NEG Urine RBC 0-4 /hpf Urine WBC 0 /hpf Urine Epithelial Cells >30 /lpf Urine Bacteria NEG Urine Hyaline Casts 0 /lpf White Blood Count 9.10 K/uL Red Blood Count 4.23 M/uL Hemoglobin 13.3 g/dL Hematocrit 38.9 % Mean Corpuscular Volume 92.0 fL Mean Corpuscular Hemoglobin 31.4 pg Mean Corpuscular Hemoglobin Concent 34.2 g/dl RDW Standard Deviation 46.0 fL RDW Coefficient of Variation 14.1 % Platelet Count 316 K/uL Mean Platelet Volume 9.2 fL Sodium Level 139 mmol/L Potassium Level 4.1 mmol/L Chloride Level 107 mmol/L Carbon Dioxide Level 27 mmol/L Anion Gap 5.0 mmol/L Blood Urea Nitrogen 11 mg/dl Creatinine 0.85 mg/dl Est Creatinine Clear Calc Drug Dose 85.6 ml/min Estimated GFR () 86.9 Estimated GFR (Non- 75.0 BUN/Creatinine Ratio 13.3 Random Glucose 126 mg/dl Calcium Level 9.1 mg/dl Magnesium Level 2.1 mg/dl Triglycerides Level 58 mg/dl Cholesterol Level 159 mg/dl HDL Cholesterol 57 mg/dl LDL Cholesterol, Calculated 90 mg/dl VLDL Cholesterol, Calculated 12 mg/dl Cholesterol/HDL Ratio 2.8 Assessment & Plan Pt returned from cath with elevated BP and substernal chest pressure. The chest pressure was present in the laborer steel handling today causing a repeat look wtih again normal coronaries on imaging. She was given nitro and some Lopressor IV in the laborer steel handling with no improvement. She was given morphine 2mg IV once now with Maalox and Zofran and is still no better. She is due for a nitro patch now and I will give another 4mg of morphine IV to see if this helps her pain and brings down her pain. 1430: despite above intervention she is still hypoxic (5L), diaphoretic and having chest pain 6/10. Considering allergic reaction but steroids were given in setting of known contrast allergy. Considering allergic reaction to something else given in cath such as Benadryl which was given. BP not much improved. Has a h/o anxiety so will give additional Ativan IV now. Will order stat CT for PE and will give solumedrol prior to repeat contrast. Will cont supportive care efforts based on results. 1530: Pt is more relaxed and says her pain is somewhat better. More sleepy but is arousable. Continues on 5L oxymask. CT results with no PE seen. Motion artifact caused limitation in interpretation, however, pulmonary edema vs infiltrate from aspiration, is present. Causes include but not limited to aspiration (full stomach noted on CT scan when no food since last night including no food immediately post-cath), ARDS 2/2 anaphylaxis from contrast ( known contrast allergy), hypertensive crisis (BP was well over 200 on arrival to floor from laborer steel handling and was elevated in laborer steel handling, also). So, Morales Calvo, was notified of the change in status and she will be going to the ICU. 1. Chest pain-concerning for cardiac etiology, however, heart cath did not reveal a blockage. Not thought secondary to cardiac cause. TTE reveals EF 50% and septal motion consistent with LBBB. No prior h/o MRI or CAD, has ICD in place. Plan as above. Cards following. 2. h/o cardiac sarcoid s/p ICD placement-found on Holter in 2012 revealing Mobitz Type II block. Pt denied any ICD firing. Interrogation ordered. Takes MTX once weekly and folic acid. 3. Prolonged QTc-Cymbalta and amitriptyline was held. 4. HTN-elevated as above. Nitro patch was replaced post cath and Lopressor IV was given intracath. No other antihypertensives given as trying to see effect from morphine and then the Ativan. Defer to ICU for management at this point. Scheduled Toprol XL was continued. 5. h/o contrast allergy-prednisone and Solumedrol was given today, as well as benadryl in the catheterization. Pt possibly having an allergic reaction despite this. 6. Depression-holding Cymbalta and Remeron. 7. h/o PE and DVT: on Eliquis 2.5mg BID FULL CODE DVT PROPHYLAXIS : on Eliquis DISPOSITION : to ICU. Spoke with son who is aware of the change in her status and updated on the current plan. All questions were answered to his satisfaction. Ifeoma Green DO [facility] Hospitalist. Consultants: [facility] Current Inpatient Medications: Current Inpatient Medications Medications (Trade) Dose Ordered Sig/Yessy Route Start Time Stop Time Status Last Admin Dose Admin Acetaminophen (Tylenol Tab) 650 mg Q4H PRN PO 05/31/17 13:30 06/30/17 13:29 05/31/17 19:44 650 MG Al Hydrox/Mg Hydrox/Simethicone (Maalox Max Susp) 15 ml Q4H PRN PO 05/31/17 13:30 06/30/17 13:29 06/01/17 12:20 15 ML Magnesium Hydroxide (Milk Of Magnesia Susp) 30 ml Q12H PRN PO 05/31/17 13:30 06/30/17 13:29 Ondansetron HCl (Zofran Inj) 4 mg Q6H PRN IV 05/31/17 13:30 06/30/17 13:29 06/01/17 12:38 4 MG Nitroglycerin (Nitrostat Tab) 0.4 mg UD PRN SL 05/31/17 13:30 06/30/17 13:29 06/01/17 02:40 0.4 MG Morphine Sulfate (MoRPHine SULFATE INJ) 2 mg Q30M PRN IV 05/31/17 13:30 06/14/17 13:29 06/01/17 12:39 2 MG Aspirin (Ecotrin Tab) 81 mg QAM PO 06/01/17 09:00 07/01/17 08:59 06/01/17 08:29 81 MG Polyethylene (Miralax Powder Packet) 17 gm DAILY PRN PO 05/31/17 13:30 06/30/17 13:29 Miscellaneous (Iv Fluids Completed) 1 ea PRN PRN N/A 05/31/17 13:45 05/31/18 13:44 Cholecalciferol (Vitamin D Tab) 1,000 inter.unit DAILY PO 06/01/17 09:00 07/01/17 08:59 06/01/17 08:28 1,000 INTER.UNIT Folic Acid (Folvite Tab) 1 mg DAILY PO 06/01/17 09:00 07/01/17 08:59 06/01/17 08:30 1 MG Acetaminophen/ Hydrocodone Bitart ([place] 10/325 Tab) 1 tab Q6H PRN PO 05/31/17 13:45 06/14/17 13:44 06/01/17 08:27 1 TAB Loratadine (Claritin Tab) 10 mg DAILY PRN PO 05/31/17 13:45 06/30/17 13:44 Lorazepam (Ativan Tab) 0.5 mg TID PRN PO 05/31/17 13:45 06/30/17 13:44 06/01/17 12:17 0.5 MG Metoprolol Succinate (Toprol Xl Tab) 50 mg BID PO 05/31/17 21:00 06/30/17 20:59 06/01/17 08:27 50 MG Potassium Chloride (Klor-Con M10) 10 meq DAILY PO 06/01/17 09:00 07/01/17 08:59 06/01/17 08:27 10 MEQ Simvastatin (Zocor Tab) 20 mg QPM PO 05/31/17 21:00 06/30/17 20:59 05/31/17 21:24 20 MG Tizanidine HCl (Zanaflex Tab) 4 mg Q6H PRN PO 05/31/17 14:00 06/30/17 13:59 Cyanocobalamin (Vitamin B-12 Tab) 1,000 mcg DAILY PO 06/01/17 09:00 07/01/17 08:59 06/01/17 08:30 1,000 MCG Miscellaneous Information (Order Awaiting Action) 1 ea QS N/A 05/31/17 16:00 06/30/17 15:59 Pantoprazole Sodium (Protonix Tab) 40 mg DAILY PO 06/01/17 09:00 07/01/17 08:59 06/01/17 08:27 40 MG Nitroglycerin (Nitroglycerin 2% Oint) 1 inch Q6H EXT 05/31/17 14:30 06/30/17 14:29 06/01/17 08:42 1 INCH Fluticasone Propionate (Flonase Nasal [place]) 2 sprays DAILY NA 06/01/17 09:00 07/01/17 08:59 06/01/17 08:31 2 SPRAYS Albuterol (Ventolin Hfa Inhaler) 2 puffs Q4 PRN INH 05/31/17 14:45 06/30/17 14:44 Miscellaneous (Iv Fluids Completed) 1 ea PRN PRN N/A 05/31/17 15:45 05/31/18 15:44 Nitroglycerin (Nitrostat Tab) 0.4 mg Q5M PRN SL 06/01/17 12:00 07/01/17 11:59 UNV Sodium Chloride 1,000 ml @ 125 mls/hr Q8H IV 06/01/17 11:56 07/01/17 11:55 UNV Acetaminophen (Tylenol Tab) 650 mg Q4H PRN PO 06/01/17 12:00 07/01/17 11:59 UNV Sodium Chloride 250 ml @ 999 mls/hr Q16M PRN IV 06/01/17 11:56 07/01/17 11:55 UNV
[2017-06-01] MEDS ORDERED: LORAZEPAM 2 MG/ML 1 ML VIAL ONE (14:30)
[2017-06-01] MEDS ORDERED: OPTIRAY 320 IV PRN (14:45)
[2017-06-01] MEDS ORDERED: LORAZEPAM 2 MG/ML 1 ML VIAL IV ONE (15:00)
[2017-06-01] MEDS ORDERED: METHYLPREDNISOLONE IV 50 MG in SYRINGE 0 ML IV ONE (15:00)
--- NOTE | 2017-06-01 15:01 | DIAGNOSTIC IMAGING REPORT ---
(CHEST FOR PE) ANGIO WITH CT DOSE: 751.58 mGy.cm HISTORY: Hypoxia dyspnea TECHNIQUE: Multiaxial CT images of the chest were performed following the intravenous administration of contrast to evaluate the pulmonary arteries. Maximal intensity projection images were also obtained. A dose lowering technique was utilized adhering to the principles of ALARA. COMPARISON STUDY: 06/29/2016 FINDINGS: Considerable motion artifact is present throughout. There are findings of diffuse pulmonary edematous change versus diffuse bilateral parenchymal infiltrative change. There is a moderate amount of debris within the lower trachea area The major central pulmonary vasculature shows no major filling defect. The peripheral pulmonary arterial vessels are difficult to define given the respiratory motion artifact present. Findings of mild cardiomegaly. IMPRESSION: 1. Study is negative for major central pulmonary embolus. 2. Limited evaluation of the peripheral arterial vasculature due to significant respiratory and somatic motion. 3. Pulmonary edema versus diffuse bilateral parenchymal infiltrative change. The above report was generated using voice recognition software. It may contain grammatical, syntax or spelling errors. Electronically signed by: Jacky Baldwin M.D. 06/01/2017 3:00 PM Dictated Date/Time: 06/01/2017 2:57 PM
--- NOTE | 2017-06-01 16:20 | ECHOCARDIOGRAM REPORT ---
*NOTICE TO RECEIVING REPUBLICAN AGENCY This information is strictly Confidential and protected under [place] law. [place] law prohibits you from making any further disclosure of this information unless further disclosure is expressly permitted by the written consent of the person to whom it pertains or is authorized by law. A general authorization for the release of medical or other information is not sufficient for this purpose. Hospital accepts no responsibility if the information is made available to any other person, INCLUDING THE PATIENT. Interpretation Summary * Name: MARILYN YA Study Date: 06/01/2017 03:09 PM BP: 147/109 mmHg * Patient Location: C.2T\S\S239\S\1 HR: 93 * : 1960 (M/d/yyyy) Gender: Female Height: 62 in * Age: 57 yrs Ethnicity: [place] Weight: 253 lb * Ordering Physician: Bernabe Martinez * Referring Physician: Self, Referred * Performed By: Quentin Gonzales RCS * * Reason For Study: CHEST PAIN * BSA: 2.1 m2 * -- Conclusions -- * Limited views were obtained. * A contrast injection of Definity was performed to improve assessment of LV function. * The left ventricle is normal in size. * There is moderate concentric left ventricular hypertrophy. * There is severe global hypokinesis of the left ventricle. * Ejection Fraction = 20-25%. Procedure Details * A two-dimensional transthoracic echocardiogram was performed. * A contrast injection of Definity was performed to improve assessment of LV function. * A contrast injection of Definity was performed to improve assessment for apical thrombus. * Contrast was injected into an intravenous site in the left arm. * One vial of Definity ultrasound contrast was diluted in normal saline to a total volume of 10 ml. A total of '3' ml of solution was administered during imaging. * Lot # [id number] of Definity utilized for procedure. * Expiration date . * The attending nurse who injected the contrast agent was Stefanie Mendoza RN. * Limited views were obtained. Left Ventricle * The left ventricle is normal in size. * There is moderate concentric left ventricular hypertrophy. * Ejection Fraction = 20-25%. * There is severe global hypokinesis of the left ventricle. MMode 2D Measurements and Calculations LVAd ap4 27.5 cm\S\2 LVLd ap4 8.3 cm EDV(MOD-sp4) 73.5 ml EDV(sp4-el) 78.0 ml LVAs ap4 22.8 cm\S\2 LVLs ap4 7.5 cm ESV(MOD-sp4) 54.7 ml ESV(sp4-el) 58.6 ml EF(MOD-sp4) 25.6 % EF(sp4-el) 24.8 % LVAd ap2 30.0 cm\S\2 LVLd ap2 8.8 cm EDV(MOD-sp2) 83.0 ml EDV(sp2-el) 86.6 ml LVAs ap2 25.8 cm\S\2 LVLs ap2 8.6 cm ESV(MOD-sp2) 64.0 ml ESV(sp2-el) 65.9 ml EF(MOD-sp2) 22.9 % EF(sp2-el) 23.9 % LVLd %diff 6.7 % EDV(MOD-bp) 79.3 ml LVLs %diff 12.1 % ESV(MOD-bp) 60.6 ml EF(MOD-bp) 23.6 % SV(MOD-sp4) 18.8 ml SI(MOD-sp4) 8.9 ml/m\S\2 SV(MOD-sp2) 19.0 ml SI(MOD-sp2) 9.0 ml/m\S\2 SV(MOD-bp) 18.8 ml SI(MOD-bp) 8.9 ml/m\S\2 SV(sp4-el) 19.4 ml SI(sp4-el) 9.2 ml/m\S\2 SV(sp2-el) 20.7 ml SI(sp2-el) 9.8 ml/m\S\2
[2017-06-01] MEDS ORDERED: HYDROmorphone INJ 1 MG/ML SYR ONE (16:50)
--- NOTE | 2017-06-01 17:44 | DIAGNOSTIC IMAGING REPORT ---
CHEST ONE VIEW PORTABLE CLINICAL HISTORY: Right internal jugular central line placement. COMPARISON STUDY: Chest CT performed earlier today. FINDINGS: There is no pneumothorax following placement of a right internal jugular central line. Catheter tip projects over the cavoatrial junction. There is a dual lead left subclavian pacer/AICD and cholecystectomy clips. No pleural effusion is present. Borderline cardiomegaly is noted. Interstitial thickening is noted with bilateral opacities. Findings have likely slightly improved since chest CT performed earlier today. IMPRESSION: 1. No pneumothorax following placement of a right internal jugular central line with catheter tip projecting over the cavoatrial junction. 2. Interstitial alveolar opacities which appear slightly improved since prior CT. Pulmonary edema is favored although bilateral pneumonia could appear similar. Electronically signed by: Adithya Ryan M.D. 06/01/2017 5:43 PM Dictated Date/Time: 06/01/2017 5:39 PM
[2017-06-01] MEDS: NiCARDipine IV 25 MG in SODIUM CHLORIDE 0.9% 250ML 240 ML IV SCH ×2 (17:53→21:57)
--- NOTE | 2017-06-01 17:53 | CARDIOLOGY PROGRESS NOTE ---
DATE: 06/01/2017 The patient seen and examined. Chart, medications, telemetry reviewed. SUBJECTIVE: The patient was seen this morning and then post cardiac catheterization, results are as on chart. Cardiac catheterization this morning demonstrated normal coronaries, though post procedure patient developed severe substernal chest pain. Further investigations revealed patent coronaries and no evidence of aortic catastrophe or dissection, with patient tolerating the procedure well with markedly hypertensive blood pressure intraprocedural. She initially responded to medications but immediately had hypertension post. This afternoon feels worse, diaphoretic, short of breath. Echocardiogram done at bedside now demonstrates diffusely declining LV function. Respiratory status has declined with patient requiring increasing oxygen demands. OBJECTIVE: VITAL SIGNS: Heart rate is 94, blood pressure is 147/109. HEENT: Normocephalic and atraumatic. NECK: Thick. There is mild elevation in jugular venous pressure. LUNGS: Reveal crackles diffusely. CARDIOVASCULAR: Regular. There is no audible S3 gallop. ABDOMEN: Soft. EXTREMITIES: Without cyanosis or clubbing. There is no peripheral edema. Right radial artery access site without bleeding. LABORATORY DATA: Troponin is mildly elevated 0.1. Review of images once again as described demonstrates normal coronaries, no evidence embolus or thrombosis or coronary injury. Echocardiogram performed as noted above at bedside demonstrates diffuse hypokinesis, only basilar structures vivian, EF 20% to 25%, likely hypertensive/catecholamine mediated. IMPRESSION: Complex 57-year-old female who presented with 2-3 days of heaviness and severe chest pressure. Cardiac catheterization demonstrates normal coronaries but with markedly hypertensive blood pressure response. Underlying medical problems include sarcoid lung with cardiac involvement, prior pacer defibrillator implantation and labile hypertension. RECOMMENDATIONS: I agree with plans for ICU transition, with plans for aggressive management of hypertension. The patient will likely require diuresis for hypertension mediated volume issues and fluid management. I spoke with Dr. Garrido who is agreeable to manage patient. We will follow along. Noting there is room for multiple antihypertensives and diuretics to aid in pulmonary status, suspect cardiac status will improve once blood pressure is better controlled, underlying likely stiff diastolically abnormal LV present in the setting of underlying sarcoid disease. I appreciate Pulmonary ICU involvement. MARC
[2017-06-01 18:09] LABS: BASO % 0.1 %; BASO ABS # 0.01 K/uL (0-0.2); HEMATOCRIT 46.3 % (37-47); HEMOGLOBIN 16.2 g/dL (12.0-16.0); IG# 0.07 K/uL (0.00-0.02); LYMPH % 2.8 %; LYMPH ABS # 0.55 K/uL (1.2-3.4); MEAN CELL VOLUME 93.2 fL (80-100); MEAN CORPUSCULAR HEMOGLOBIN 32.6 pg (25-34); MEAN PLATELET VOLUME 9.5 fL (7.4-10.4); MONO % 0.6 %; MONO ABS # 0.12 K/uL (0.11-0.59); NEUT % 96.1 %; NEUT ABS # 18.88 K/uL (1.4-6.5); PLATELET COUNT 348 K/uL (130-400); RED CELL DISTRIBUTION WIDTH CV 14.4 % (11.5-14.5); RED CELL DISTRIBUTION WIDTH SD 48.2 fL (36.4-46.3); WHITE BLOOD COUNT 19.63 K/uL (4.8-10.8)
--- NOTE | 2017-06-01 18:14 | Critical Care Consultation ---
Critical Care Consultation Date of Consultation: Jun 01, 2017. Attending Physician: Ifeoma Green DO Reason for Consultation: Acute respiratory failure. 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 The patient was heart alert patient and underwent PCI for evaluation of coronary artery disease which showed normal coronaries. The patient does have a history of allergy to contrast but we'll she was premedicated with steroids and H1 blockers. The patient did not have any syncopal episodes, no palpitation was noted, the patient did have an event where she become short of breath, tachypnea, diaphoretic, with increasing pain in her chest requiring multiple doses of morphine. The patient did not have any complete relief even after the morphine. She was transferred to the ICU as her respiratory status noted to be altered as well. In the ICU, the patient appeared to be lethargic but she was answering questions properly, she denies any shortness of breath but stated chest pain that has been persistent with heaviness. She did not have any cough but she does have occasional pinkish sputum according to her. No abdominal pain was reported no nausea or vomiting. The patient earlier underwent a CAT scan of the chest to evaluate further for possible recurrence of PE although she has been on Eliquis, and noted to have no PE but a large stomach and multiple areas of airspace disease affecting every segment and her lungs bilaterally. In the ICU, I had a chance to take a look on her cardiac status with an ultrasound which showed ejection fraction at approximately 25% although it was reported on echo previously up to 60%. The patient did not have any cardiac effusion. She did not have any pleural effusion as well. The consolidation in the lung was bilaterally and mostly consistent with acute lung injury rather than with pulmonary edema. Visualization of her IVC was difficult due to her body habitus. But she was noted to have respiratory variation of the IJ as I put Central line in the right IJ. Initial CVP was 17. Her blood pressure was 180 on arrival systolic with 135 map. Also saturation is 100% on nasal cannula. She does have warm digits in the periphery and bilateral crackles were audible. S1-S2 with left-sided pacemaker. No edema. Diaphoresis was noted. Family History Cancer Social History Smoking Status: Never Smoker Allergies Coded Allergies: Lidocaine (Unverified Allergy, Severe, ITCHY,RASH, 05/31/17) Penicillins (Unverified Allergy, Severe, ITCHY,RASH, 05/31/17) Adhesives (Verified Allergy, Unknown, RASH, SKIN IRRATATION, 05/31/17) Iodinated Diagnostic Agents (Verified Allergy, Unknown, UNKNOWN, 05/31/17) Lisinopril (Verified Allergy, Unknown, ANAPHYLAXIS, 05/31/17) Home Medications Scheduled Amitriptyline Hcl (Elavil), 75 MG PO HS Apixaban (Eliquis), 2.5 MG PO BID Biotin (Biotin 5000), 1 CAP PO DAILY Cholecalciferol (Vitamin D3), 1 TAB PO DAILY Cyanocobalamin (Vitamin B-12), 1,000 MCG PO DAILY Duloxetine Hcl (Cymbalta), 60 MG PO DAILY Fluticasone Furoate-Vilanterol (Breo Ellipta), 1 PUFF INH DAILY Folic Acid (Folvite), 1 MG PO DAILY Methotrexate (Methotrexate), 8 TAB PO WK Metoprolol Succ (Toprol Xl) (Toprol-Xl ), 50 MG PO BID Omeprazole (Prilosec), 40 MG PO DAILY Potassium Chloride (Micro-K Ext Rel), 10 MEQ PO DAILY Simvastatin (Zocor), 20 MG PO QPM Scheduled PRN Hydrocodone/Acetaminophen ([place] 10/325 Tab), 1 TAB PO Q6H PRN for Pain Loratadine (Claritin), 10 MG PO DAILY PRN for Allergic Reaction Lorazepam (Ativan), 0.5-1 MG PO TID PRN for Anxiety Tizanidine (Zanaflex ), 4 MG PO Q6H PRN for Muscle Spasms Current Inpatient Medications Current Inpatient Medications Medications (Trade) Dose Ordered Sig/Yessy Route Start Time Stop Time Status Last Admin Dose Admin Al Hydrox/Mg Hydrox/Simethicone (Maalox Max Susp) 15 ml Q4H PRN PO 05/31/17 13:30 06/30/17 13:29 06/01/17 12:20 15 ML Magnesium Hydroxide (Milk Of Magnesia Susp) 30 ml Q12H PRN PO 05/31/17 13:30 06/30/17 13:29 Ondansetron HCl (Zofran Inj) 4 mg Q6H PRN IV 05/31/17 13:30 06/30/17 13:29 06/01/17 12:38 4 MG Morphine Sulfate (MoRPHine SULFATE INJ) 2 mg Q30M PRN IV 05/31/17 13:30 06/14/17 13:29 06/01/17 12:39 2 MG Aspirin (Ecotrin Tab) 81 mg QAM PO 06/01/17 09:00 07/01/17 08:59 06/01/17 08:29 81 MG Polyethylene (Miralax Powder Packet) 17 gm DAILY PRN PO 05/31/17 13:30 06/30/17 13:29 Miscellaneous (Iv Fluids Completed) 1 ea PRN PRN N/A 05/31/17 13:45 05/31/18 13:44 Cholecalciferol (Vitamin D Tab) 1,000 inter.unit DAILY PO 06/01/17 09:00 07/01/17 08:59 06/01/17 08:28 1,000 INTER.UNIT Folic Acid (Folvite Tab) 1 mg DAILY PO 06/01/17 09:00 07/01/17 08:59 06/01/17 08:30 1 MG Acetaminophen/ Hydrocodone Bitart (Triplett 10/325 Tab) 1 tab Q6H PRN PO 05/31/17 13:45 06/14/17 13:44 06/01/17 08:27 1 TAB Loratadine (Claritin Tab) 10 mg DAILY PRN PO 05/31/17 13:45 06/30/17 13:44 Lorazepam (Ativan Tab) 0.5 mg TID PRN PO 05/31/17 13:45 06/30/17 13:44 06/01/17 12:17 0.5 MG Metoprolol Succinate (Toprol Xl Tab) 50 mg BID PO 05/31/17 21:00 06/30/17 20:59 06/01/17 08:27 50 MG Potassium Chloride (Klor-Con M10) 10 meq DAILY PO 06/01/17 09:00 07/01/17 08:59 06/01/17 08:27 10 MEQ Simvastatin (Zocor Tab) 20 mg QPM PO 2/21/18 21:00 06/30/17 20:59 05/31/17 21:24 20 MG Tizanidine HCl (Zanaflex Tab) 4 mg Q6H PRN PO 05/31/17 14:00 06/30/17 13:59 Cyanocobalamin (Vitamin B-12 Tab) 1,000 mcg DAILY PO 06/01/17 09:00 07/01/17 08:59 06/01/17 08:30 1,000 MCG Miscellaneous Information (Order Awaiting Action) 1 ea QS N/A 05/31/17 16:00 06/30/17 15:59 Nitroglycerin (Nitroglycerin 2% Oint) 1 inch Q6H EXT 05/31/17 14:30 06/30/17 14:29 06/01/17 12:54 1 INCH Fluticasone Propionate (Flonase Nasal [place]) 2 sprays DAILY NA 06/01/17 09:00 07/01/17 08:59 06/01/17 08:31 2 SPRAYS Albuterol (Ventolin Hfa Inhaler) 2 puffs Q4 PRN INH 05/31/17 14:45 06/30/17 14:44 Miscellaneous (Iv Fluids Completed) 1 ea PRN PRN N/A 05/31/17 15:45 05/31/18 15:44 Nitroglycerin (Nitrostat Tab) 0.4 mg Q5M PRN SL 06/01/17 12:00 07/01/17 11:59 Acetaminophen (Tylenol Tab) 650 mg Q4H PRN PO 06/01/17 12:00 07/01/17 11:59 Ioversol (Optiray 320) 100 ml UD PRN IV 06/01/17 14:45 06/05/17 14:44 Pantoprazole Sodium (Protonix Tab) 40 mg BID PO 06/01/17 21:00 07/01/17 08:59 Nicardipine HCl 25 mg/Sodium Chloride 250 ml @ 50 mls/hr Q5H IV 06/01/17 17:29 07/01/17 17:28 Review of Systems Eyes: No worsening of vision, No eye pain, No redness, No discharge, No diplopia, No problem reported Respiratory: + cough, + wheezing, + shortness of breath Cardiovascular: + chest pain Abdomen: No pain, No nausea, No vomiting, No diarrhea, No constipation, No GI bleeding, No problem reported Musculoskeletal: No joint pain, No muscle pain, No swelling, No calf pain, No problem reported Neurologic: No memory loss, No paralysis, No weakness, No numbness/tingling, No vertigo, No balance problems, No problem reported Psychiatric: No depression symptoms, No anhedonism, No anxiety, No insomnia, No substance abuse, No problem reported Physical Exam Date Time Temp Pulse Resp B/P (MAP) Pulse Ox O2 Delivery O2 Flow Rate FiO2 06/01/17 16:02 36.4 94 18 93 5.0 06/01/17 15:31 94 18 147/109 (122) 93 Oxymask 5.0 06/01/17 15:00 36.4 99 16 182/85 (117) 93 Oxymask 5.0 06/01/17 13:45 36.5 91 18 172/102 (125) 91 Oxymask 5.0 06/01/17 13:30 90 20 179/129 (146) 88 Nasal Cannula 4.0 06/01/17 13:15 92 20 169/87 (114) 90 Nasal Cannula 4.0 06/01/17 13:00 84 18 127/82 (97) 91 Nasal Cannula 4.0 06/01/17 12:45 81 20 172/114 (133) 88 Nasal Cannula 3.0 06/01/17 12:30 83 20 184/129 (147) 90 Nasal Cannula 3.0 06/01/17 12:15 84 22 167/108 (127) 85 Room Air 06/01/17 12:04 82 18 156/92 (113) 98 Room Air 06/01/17 12:00 Room Air 06/01/17 11:54 84 18 158/96 (116) 98 Room Air 06/01/17 08:00 Room Air 06/01/17 07:59 36.5 67 16 144/73 (96) 98 Nasal Cannula 2.0 06/01/17 04:00 Room Air 06/01/17 03:47 67 134/82 (99) 06/01/17 02:46 135/82 (99) 92 Nasal Cannula 2.0 06/01/17 02:36 128/80 (96) 95 Nasal Cannula 2.0 06/01/17 02:34 95 Nasal Cannula 2.0 06/01/17 02:33 36.4 75 24 143/80 (101) 91 Nasal Cannula 2.0 06/01/17 02:15 36.5 75 22 149/75 (99) 93 Room Air 06/01/17 00:10 36.9 65 16 124/69 (87) 94 Room Air 06/01/17 00:00 Room Air 05/31/17 20:05 Room Air 05/31/17 19:39 78 130/77 (94) 92 05/31/17 19:10 36.7 76 19 124/76 (92) 92 Room Air General Appearance: uncomfortable, in pain Eyes: PERRLA, EOMI Neck: no tenderness, trachea midline Respiratory: rales Cardiovasular: regular rate/rhythm, normal S1S2, no M/G/R Abdomen: non tender, no masses Neuro: alert, oriented x 3, normal motor exam Psychiatric: normal affect Laboratory Results Last 24 Hours Test 05/31/17 19:41 05/31/17 22:15 06/01/17 01:12 06/01/17 07:47 Troponin I < 0.015 ng/ml < 0.015 ng/ml < 0.015 ng/ml Urine Color YELLOW Urine Appearance CLEAR Urine pH 7.0 Urine Specific [place] <= 1.005 Urine Protein NEG Urine Glucose (UA) NEG Urine Ketones NEG Urine Occult Blood 1+ Urine Nitrite NEG Urine Bilirubin NEG Urine Urobilinogen NEG Urine Leukocyte Esterase NEG Urine RBC 0-4 /hpf Urine WBC 0 /hpf Urine Epithelial Cells >30 /lpf Urine Bacteria NEG Urine Hyaline Casts 0 /lpf White Blood Count 9.10 K/uL Red Blood Count 4.23 M/uL Hemoglobin 13.3 g/dL Hematocrit 38.9 % Mean Corpuscular Volume 92.0 fL Mean Corpuscular Hemoglobin 31.4 pg Mean Corpuscular Hemoglobin Concent 34.2 g/dl RDW Standard Deviation 46.0 fL RDW Coefficient of Variation 14.1 % Platelet Count 316 K/uL Mean Platelet Volume 9.2 fL Sodium Level 139 mmol/L Potassium Level 4.1 mmol/L Chloride Level 107 mmol/L Carbon Dioxide Level 27 mmol/L Anion Gap 5.0 mmol/L Blood Urea Nitrogen 11 mg/dl Creatinine 0.85 mg/dl Est Creatinine Clear Calc Drug Dose 85.6 ml/min Estimated GFR () 86.9 Estimated GFR (Non- 75.0 BUN/Creatinine Ratio 13.3 Random Glucose 126 mg/dl Calcium Level 9.1 mg/dl Magnesium Level 2.1 mg/dl Triglycerides Level 58 mg/dl Cholesterol Level 159 mg/dl HDL Cholesterol 57 mg/dl LDL Cholesterol, Calculated 90 mg/dl VLDL Cholesterol, Calculated 12 mg/dl Cholesterol/HDL Ratio 2.8 Test 06/01/17 13:07 06/01/17 15:39 06/01/17 17:49 Troponin I 0.103 ng/ml Procalcitonin < 0.05 ng/ml Diagnostic Results Chest x-ray showed what appeared to be pulmonary edema, CAT scan of the chest showed bilateral airspace disease consistent with acute lung injury, no pleural effusion. No PE, repeat chest x-ray after the central line was placed showed CHF and the tip of the catheter at the SVC and no pneumothorax. Icemaker was in good position. Cardiomegaly. Assessment & Plan #1 decompensated sarcoidosis cardiomyopathy versus noncardiogenic edema such as acute lung injury from contrast-induced. Although the patient has a full stomach on the CAT scan aspiration cannot be ruled out but I would not expect it to be homogeneous spread of groundglass opacity throughout the lung. #2 cardiomyopathy, etiology is likely related to her sarcoidosis. #3 hypertensive crisis with pulmonary edema. #4 history of PE. #5 sarcoidosis with myocardial involvement. Status post pacemaker. Status post PCI with normal coronaries. Plan: #1 ultrasound was done at the bedside and the patient noted to have variation with the IJ but not the IVC as is was not visualized due to patient body habitus. #2 decline in ejection fraction to approximately 25% compared to the previous which was 50%. Etiology is unknown. #3 central line was placed dictated separately, CVP was transfused and initial CVP was 17. #4 I will start the patient on high doses of steroids in case the etiology is related to sarcoidosis exacerbation with sarcoidosis cardiomyopathy. #5 the patient has been managed with methotrexate and I would keep it on board per schedule. #6 I will repeat her labs including proBNP and venous blood gas. #7 daily echocardiogram is needed. #8 nicardipine drip to lower the blood pressure in order to improve the contractility and hopefully the cardiac output. #9 glucose control. #10 continue with Eliquis. #11 GI prophylaxis. #12 I will hold off on the antibiotics at this point. No evidence of sepsis at the moment with a blood pressure of 180. However anaphylaxis cannot be ruled out. I would anticipate also the blood pressure to be low. #[address] an A-line to better measure the blood pressure. And I will place it on the opposite side to the PCI site. #14 Dilaudid for pain control. #15 discussed with the patient and with the staff as well as with Dr. Martinez, appreciate his input. Critical care time spent with the patient was 60 minutes excluding procedure time.
[2017-06-01] MEDS ORDERED: XYLOCAINE 1%/SOD BICARB 20 ML VIAL INFIL ONE (18:15)
[2017-06-01] MEDS ORDERED: LIDOCAINE HCL 1% 20 ML VIAL ONE (18:16)
[2017-06-01] MEDS ORDERED: FUROSEMIDE INJ 40 MG in SYRINGE 0 ML IV ONE (18:30)
[2017-06-01] MEDS ORDERED: FUROSEMIDE 40 MG/4 ML VIAL ONE (18:30)
[2017-06-01 18:33] LABS: CALCIUM 8.7 mg/dl (8.5-10.1); CREATININE 0.89 mg/dl (0.60-1.20); POTASSIUM 4.3 mmol/L (3.5-5.1)
--- NOTE | 2017-06-01 18:43 | Procedure Note ---
Procedure Note Procedure Date Jun 01, 2017. Procedure Description Procedure time out: side/site verified, patient ID confirmed, correct procedure Consent obtained: written Performed by: attending Indications: diagnostic, therapeutic Contraindications: none Description: The patient was placed in supine position, under strict sterile field, using ultrasound guidance, right IJ anteriorly approach, the right IJ was visualized and noted to be collapsible, the skin was prepped with chlorhexidine, injected with 5 mL 1% lidocaine, using dilator but no scalpel, the line was placed to 15 cm and secured with 2 sutures, all ports were flushed with saline, covered with surgical dressing, chest x-ray revealed the tip of the catheter at the SVC, no PTX. Well tolerated. Complications: none Patient tolerated procedure: well
[2017-06-01] MEDS ORDERED: VANCOMYCIN CONSULT ACTIVE PRN (19:15)
[2017-06-01] MEDS ORDERED: VANCOMYCIN INJ 2,750 MG in SODIUM CHLORIDE 0.9% 500ML 500 ML IV SCH (21:00)
[2017-06-01] MEDS: AZTREONAM IV 1,000 MG in DEXTROSE 5% 100ML 100 ML IV SCH (21:57)
[2017-06-01] MEDS: APIXABAN 2.5 MG TAB PO SCH (21:58)
[2017-06-01] MEDS: PANTOprazole SOD 40 MG TAB PO SCH (21:59)
[2017-06-01] MEDS: ACETAMINOPHEN 325 MG TAB PO PRN (22:00)
[2017-06-01] MEDS: SIMVASTATIN 20 MG TAB PO SCH (22:01)
--- NOTE | 2017-06-01 23:05 | Pharmacy Progress Note ---
Pharmacy Antibiotic Consult Date of Service: Jun 01, 2017. Pharmacy Dosing Scope Pharmacy is consulted to initiate vancomycin IV dosing therapy, order appropriate labs and adjust drug dose/frequency. Subjective The patient is a 57 year old female admitted on Jun 01, 2017 at 21:30. History of sarcoidosis, hypertension. S/P Heart Alert. Now in ICU with possible pneumonia. Objective Height (Feet): 5 Height (Inches): 2.00 Weight (Kilograms): 115.000 Lab Results (24hrs): Test 06/01/17 07:47 06/01/17 13:07 06/01/17 15:39 06/01/17 17:49 White Blood Count 9.10 K/uL (4.8-10.8) 19.63 K/uL (4.8-10.8) Red Blood Count 4.23 M/uL (4.2-5.4) 4.97 M/uL (4.2-5.4) Hemoglobin 13.3 g/dL (12.0-16.0) 16.2 g/dL (12.0-16.0) Hematocrit 38.9 % (37-47) 46.3 % (37-47) Mean Corpuscular Volume 92.0 fL (80-100) 93.2 fL (80-100) Mean Corpuscular Hemoglobin 31.4 pg (25-34) 32.6 pg (25-34) Mean Corpuscular Hemoglobin Concent 34.2 g/dl (32-36) 35.0 g/dl (32-36) RDW Standard Deviation 46.0 fL (36.4-46.3) 48.2 fL (36.4-46.3) RDW Coefficient of Variation 14.1 % (11.5-14.5) 14.4 % (11.5-14.5) Platelet Count 316 K/uL (130-400) 348 K/uL (130-400) Mean Platelet Volume 9.2 fL (7.4-10.4) 9.5 fL (7.4-10.4) Sodium Level 139 mmol/L (136-145) 138 mmol/L (136-145) Potassium Level 4.1 mmol/L (3.5-5.1) 4.3 mmol/L (3.5-5.1) Chloride Level 107 mmol/L (98-107) 106 mmol/L (98-107) Carbon Dioxide Level 27 mmol/L (21-32) 25 mmol/L (21-32) Anion Gap 5.0 mmol/L (3-11) 7.0 mmol/L (3-11) Blood Urea Nitrogen 11 mg/dl (7-18) 13 mg/dl (7-18) Creatinine 0.85 mg/dl (0.60-1.20) 0.89 mg/dl (0.60-1.20) Est Creatinine Clear Calc Drug Dose 85.6 ml/min 81.7 ml/min Estimated GFR () 86.9 82.2 Estimated GFR (Non- 75.0 70.9 BUN/Creatinine Ratio 13.3 (10-20) 14.2 (10-20) Random Glucose 126 mg/dl (70-99) 161 mg/dl (70-99) Calcium Level 9.1 mg/dl (8.5-10.1) 8.7 mg/dl (8.5-10.1) Magnesium Level 2.1 mg/dl (1.8-2.4) Troponin I < 0.015 ng/ml (0-0.045) 0.103 ng/ml (0-0.045) Triglycerides Level 58 mg/dl (0-150) Cholesterol Level 159 mg/dl (0-200) HDL Cholesterol 57 mg/dl LDL Cholesterol, Calculated 90 mg/dl VLDL Cholesterol, Calculated 12 mg/dl Cholesterol/HDL Ratio 2.8 Procalcitonin < 0.05 ng/ml (0-0.5) Neutrophils (%) (Auto) 96.1 % Lymphocytes (%) (Auto) 2.8 % Monocytes (%) (Auto) 0.6 % Eosinophils (%) (Auto) 0.0 % Basophils (%) (Auto) 0.1 % Neutrophils # (Auto) 18.88 K/uL (1.4-6.5) Lymphocytes # (Auto) 0.55 K/uL (1.2-3.4) Monocytes # (Auto) 0.12 K/uL (0.11-0.59) Eosinophils # (Auto) 0.00 K/uL (0-0.5) Basophils # (Auto) 0.01 K/uL (0-0.2) Immature Granulocyte % (Auto) 0.4 % Immature Granulocyte # (Auto) 0.07 K/uL (0.00-0.02) Venous Blood pH 7.29 (7.36-7.41) Venous Blood Partial Pressure CO2 55 mmHg (38.0-50.0) Venous Blood Partial Pressure O2 43 mmHg Venous Blood HCO3 26 mmol/L Venous Blood Oxygen Saturation 72.2 % Venous Blood Base Excess -2.1 mEq/L Pro-B-Type Natriuretic Peptide 1010 pg/ml (0-900) Recent Pertinent Medications Item Value Date Time Vancomycin HCl 530 ml @ 125 mls/hr 06/02/17 0900 1500 mg/Sodium Q12/IV Chloride Vancomycin HCl 555 ml @ 200 mls/hr 06/01/17 2100 2750 mg/Sodium TODAY@2100/IV 06/01/172157 Chloride Aztreonam 1000 mg/ 110 ml @ 100 mls/hr 06/01/17 2000 Dextrose Q8H/IV 06/01/172156 Assessment & Plan Loading dose: vancomycin 2750 mg IV X 1 dose then: vancomycin 1500 mg IV every 12 hours. Goal peak level estimate: between 25-40 mcg/mL. Goal trough level estimate: between 15-20 mcg/mL. Trough has been ordered for: 06/03/17 before 0900 dose. Pharmacy will continue to follow and will adjust dose/frequency as necessary. Thank you
[2017-06-01] MEDS: METHYLPREDNISOLONE IV 60 MG in SYRINGE 0 ML IV SCH (23:41)
[2017-06-02] VITALS (78 sets, daily range): BP systolic 109–161; BP diastolic 59–99; PULSE 77–110; TEMP 36.4–36.7; O2SAT 91–100
[2017-06-02] MEDS: AZTREONAM IV 1,000 MG in DEXTROSE 5% 100ML 100 ML IV SCH (03:13)
[2017-06-02] MEDS: NITROGLYCERIN 2% OINTMENT 30GM TUBE EXT SCH ×4 (03:13→20:35)
[2017-06-02] MEDS: NiCARDipine IV 25 MG in SODIUM CHLORIDE 0.9% 250ML 240 ML IV SCH ×3 (03:13→20:35)
[2017-06-02] MEDS: LORAZEPAM 0.5 MG TAB PO PRN ×3 (03:20→22:26)
[2017-06-02] MEDS: METHYLPREDNISOLONE IV 60 MG in SYRINGE 0 ML IV SCH ×4 (05:38→23:54)
[2017-06-02] MEDS: ALUMINUM/MAGNESIUM/SIMETH (MAALOX MAX) 30 ML UDC PO PRN ×2 (05:40→13:55)
[2017-06-02] MEDS: HYDROCODONE/ACETAMI 10/325 TAB PO PRN (05:42)
[2017-06-02 05:52] LABS: HEMATOCRIT 44.5 % (37-47); HEMOGLOBIN 15.1 g/dL (12.0-16.0); IG# 0.05 K/uL (0.00-0.02); LYMPH % 4.7 %; LYMPH ABS # 0.76 K/uL (1.2-3.4); MEAN CELL VOLUME 93.1 fL (80-100); MEAN CORPUSCULAR HEMOGLOBIN 31.6 pg (25-34); MEAN CORPUSCULAR HGB CONC 33.9 g/dl (32-36); MEAN PLATELET VOLUME 9.4 fL (7.4-10.4); MONO % 2.1 %; MONO ABS # 0.35 K/uL (0.11-0.59); NEUT % 92.9 %; NEUT ABS # 15.17 K/uL (1.4-6.5); PLATELET COUNT 303 K/uL (130-400); RED CELL DISTRIBUTION WIDTH CV 14.3 % (11.5-14.5); RED CELL DISTRIBUTION WIDTH SD 47.9 fL (36.4-46.3); WHITE BLOOD COUNT 16.33 K/uL (4.8-10.8)
[2017-06-02 06:32] LABS: CALCIUM 8.5 mg/dl (8.5-10.1); CREATININE 0.81 mg/dl (0.60-1.20); POTASSIUM 3.5 mmol/L (3.5-5.1)
[2017-06-02 06:48] LABS: CKMB 317.7 ng/ml (0.5-3.6); PHOSPHORUS 2.8 mg/dl (2.5-4.9)
--- NOTE | 2017-06-02 07:56 | CARDIAC CATH REPORT ---
INDICATIONS: Severe chest pain, history of sarcoidosis, cardiomyopathy, severe chest discomfort at low level exertion and rest. PROCEDURE: Left heart catheterization, coronary and aortic root angiography. BRIEF CARDIAC HISTORY: The patient is a 57-year-old female with underlying history of chronic sarcoidosis on immunosuppressive therapy. History of prophylactic pacer defibrillator implantation, hypertension and hyperlipidemia presented with severe substernal chest discomfort radiating to left axillary arm, eased by nitroglycerin on date of admission. She notes recent upper respiratory infection, chronic GI complaints. Due to severe symptoms and pain and chronic left bundle branch block, precluding EKG evaluation, echocardiogram demonstrate dyssynergic septum pattern, she was referred for diagnostic cardiac catheterization. Due to dye allergy, the patient received prophylactic treatment with prednisone 50 mg evening prior and Solu-Medrol, Benadryl and ranitidine prior to procedure. ACCESS: Right radial artery. CATHETERS: A 6-Beninese long glide sheath, 5-Beninese brachial 3.5, 5-Beninese JR4, 5-Beninese multipurpose, 5-Beninese angled pigtail catheter. CONTRAST: Nonionic x154 mL Visipaque. IV FLUIDS: 108 mL normal saline. RADIATION EXPOSURE: 9 minutes of fluoroscopy with 2436 milligrays[place] [address]. SEDATION: Start time 1114, end time 1154. SUPERVISING NURSE: Alyssa Clark RN. SEDATION MEDICATIONS: The patient received 1 mg IV Versed and 12.5 mg IV fentanyl. PROCEDURAL NOTES: Postop completion of imaging, patient developed markedly hypertensive blood pressure response and chest pressure pain. Coronary images were reobtained as was an aortic root angiogram demonstrating no abnormalities. MEDICATIONS: Hypertension was treated with IV metoprolol for a total of 7.5 mg, sublingual nitroglycerin 0.4 mg x3 and intra-arterial injection of nicardipine 250 mcg and 200 mcg of nitroglycerin x2 as well as an additional 25 mcg of fentanyl. RESULTS: CORONARY ANGIOGRAPHY: LEFT MAIN: The left main is long and trifurcates to give rise to left anterior descending, a large ramus intermedius and the left circumflex. There is no disease in the left main. LEFT ANTERIOR DESCENDING: Left anterior descending is type 2 in distribution and gives rise to a large diagonal branch shortly after its origin which parallels the left anterior descending to the apex. There is no disease in the left anterior descending or diagonal system. RAMUS INTERMEDIUS: This is a moderate caliber vessel and is free of disease. LEFT CIRCUMFLEX: This is a moderately large vessel which bifurcates and is free of disease. RIGHT CORONARY ARTERY: The right coronary has a downward takeoff which separates shortly after its origin. Two right ventricular branches in its mid portion at the AV groove along posterior descending artery and 2 posterior ventricular branches along the AV groove. There is no disease in the right coronary artery. AORTIC ROOT ANGIOGRAPHY: Demonstrated normal size aortic root, no evidence of dissection or disruption. HEMODYNAMICS: Initial aortic root pressure was 149/83 with a mean of 111. LV pressure was 139/17 with an EDP of 17. Closing aortic root pressure was 169/96 with a mean of 129. FINAL IMPRESSIONS: 1. Right dominant coronary anatomy. 2. Normal coronaries without coronary disease or atherosclerosis. 3. Normal aortic root without evidence of dissection or enlargement. 4. Hypertensive response to the procedure with associated severe chest discomfort similar to her presenting symptoms. RECOMMENDATIONS: Continued medical therapies, aggressive management of underlying hypertensive issues.
[2017-06-02] MEDS: PANTOprazole SOD 40 MG TAB PO SCH ×2 (08:02→20:35)
[2017-06-02] MEDS: CYANOCOBALAMIN 500 MCG TAB (VIT B-12) PO SCH (08:02)
[2017-06-02] MEDS: POTASSIUM CHLORIDE 10 MEQ TABCR PO SCH (08:02)
[2017-06-02] MEDS: ASPIRIN 81 MG ECTAB PO SCH (08:03)
[2017-06-02] MEDS: FLUTICASONE PROPIONATE NA SPR 16 GM BTL SCH (08:03)
[2017-06-02] MEDS: APIXABAN 2.5 MG TAB PO SCH ×2 (08:03→20:35)
[2017-06-02] MEDS: METOPROLOL SUCC 50MG EXT REL TAB PO SCH ×3 (08:03→20:35)
[2017-06-02] MEDS: CHOLECALCIFEROL 1000 INTER.UNIT TAB PO SCH (08:04)
[2017-06-02] MEDS: FLUTICASONE FUROATE-VILANTEROL 30 PUFFS/INHALER INH INH SCH (08:04)
--- NOTE | 2017-06-02 08:24 | DIAGNOSTIC IMAGING REPORT ---
CHEST ONE VIEW PORTABLE HISTORY: Congestive heart failure. COMPARISON: Chest 06/01/2017. FINDINGS: Improvement in the pulmonary edema pattern. No pleural fusions. No pneumothorax. The heart remains stable in size. Left-sided pacemaker. Right jugular central venous catheter terminates in the SVC. IMPRESSION: Improvement in the pulmonary edema. Electronically signed by: Saurabh Bautista M.D. 06/02/2017 8:22 AM Dictated Date/Time: 06/02/2017 8:21 AM
[2017-06-02] MEDS ORDERED: VANCOMYCIN INJ 1,500 MG in SODIUM CHLORIDE 0.9% 500ML 500 ML IV SCH (09:00)
[2017-06-02] MEDS ORDERED: PERFLUTREN LIPID MICROSPHERE (DEFINITY) IV ONE (09:06)
[2017-06-02] MEDS: DOXYCYCLINE HYCLATE 100 MG CAP PO SCH ×2 (09:48→20:35)
--- NOTE | 2017-06-02 10:10 | ECHOCARDIOGRAM REPORT ---
*NOTICE TO RECEIVING LIBERTARIAN AGENCY This information is strictly Confidential and protected under [place] law. [place] law prohibits you from making any further disclosure of this information unless further disclosure is expressly permitted by the written consent of the person to whom it pertains or is authorized by law. A general authorization for the release of medical or other information is not sufficient for this purpose. Hospital accepts no responsibility if the information is made available to any other person, INCLUDING THE PATIENT. Interpretation Summary * Name: MARILYN YA Study Date: 06/02/2017 08:43 AM BP: 148/90 mmHg * Patient Location: .MSICU\S\E103\S\1 HR: 93 * : 1960 (M/d/yyyy) Gender: Female Height: 62 in * Age: 57 yrs Ethnicity: CA Weight: 227 lb * Ordering Physician: Bernabe Martinez * Referring Physician: Self, Referred * Performed By: Quentin Gonzales RCS * * Reason For Study: Assess LVFX and IVC * BSA: 2.0 m2 * -- Conclusions -- * The left ventricle is normal in size. * There is moderate concentric left ventricular hypertrophy. * There is localized apical hypokinesis with hyperdynamic basal and mid wall motion . * Ejection Fraction = 40-45%. Procedure Details * A two-dimensional transthoracic echocardiogram was performed. * A contrast injection of Definity was performed to improve assessment of LV function. * Contrast was injected into an intravenous site in the central line. * One vial of Definity ultrasound contrast was diluted in normal saline to a total volume of 10 ml. A total of '2' ml of solution was administered during imaging. * Lot # [id number] of Definity utilized for procedure. * Expiration date . * The attending nurse who injected the contrast agent was Anmol in ICU, RN. * Limited views were obtained. Left Ventricle * The left ventricle is normal in size. * There is moderate concentric left ventricular hypertrophy. * Ejection Fraction = 40-45%. * There is localized apical hypokinesis with hyperdynamic basal and mid wall motion . Great Vessels * Normal inferior vena cava diameter and respiratory variation suggests normal central venous pressure. MMode 2D Measurements and Calculations LVAd ap4 35.8 cm\S\2 LVLd ap4 9.5 cm EDV(MOD-sp4) 107.2 ml EDV(sp4-el) 114.4 ml LVAs ap4 26.5 cm\S\2 LVLs ap4 8.6 cm ESV(MOD-sp4) 64.5 ml ESV(sp4-el) 69.7 ml EF(MOD-sp4) 39.8 % EF(sp4-el) 39.1 % LVAd ap2 38.7 cm\S\2 LVLd ap2 9.8 cm EDV(MOD-sp2) 126.4 ml EDV(sp2-el) 130.1 ml LVAs ap2 27.9 cm\S\2 LVLs ap2 8.1 cm ESV(MOD-sp2) 76.0 ml ESV(sp2-el) 81.2 ml EF(MOD-sp2) 39.9 % EF(sp2-el) 37.6 % LVLd %diff 2.3 % EDV(MOD-bp) 116.6 ml LVLs %diff -5.36 % ESV(MOD-bp) 71.1 ml EF(MOD-bp) 39.0 % SV(MOD-sp4) 42.7 ml SI(MOD-sp4) 21.2 ml/m\S\2 SV(MOD-sp2) 50.4 ml SI(MOD-sp2) 25.0 ml/m\S\2 SV(MOD-bp) 45.5 ml SI(MOD-bp) 22.5 ml/m\S\2 SV(sp4-el) 44.7 ml SI(sp4-el) 22.2 ml/m\S\2 SV(sp2-el) 48.9 ml SI(sp2-el) 24.3 ml/m\S\2
--- NOTE | 2017-06-02 11:00 | PROGRESS NOTE ---
DATE: 06/02/2017 CARDIOLOGY CONSULTATION FOLLOWUP NOTE The patient seen and examined. Chart, medications, telemetry reviewed. SUBJECTIVE: The patient appears improved this morning, chest pressure and pain has resolved. Blood pressures are coming under control with her current IV medications. OBJECTIVE: VITAL SIGNS: Heart rate is 95, blood pressure is 144/87, O2 saturation is 97% on 3 liters nasal cannula. NECK: Thick. There is no distinct jugular venous distention. LUNGS: Reveal better aeration to the bases. CARDIOVASCULAR: Regular. There is no S3 gallop. ABDOMEN: Soft. EXTREMITIES: Free of edema. 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 LABORATORY DATA: White cell count is 16.3, hemoglobin is 15.1. Sodium is 137, potassium is 3.5, chloride is 104, bicarbonate is 26, BUN is 14, and creatinine is 0.81. Peak troponin went to 66 with elevated CK and MB fraction as well. BNP is 2315. IMPRESSION: This 57-year-old female presented with intermittent chest heaviness superimposed on a history of underlying sarcoid disease, pulmonary and cardiac yesterday during cardiac catheterization lab procedure noted normal coronaries and aorta, though with marked hypertension and chest pressure pain. The patient course clinical decline with severe left ventricular dysfunction last evening, now improved. Echocardiogram this morning suggested catecholamine stress mediated cardiomyopathy, possibly hypertension induced in the setting of diastolic left ventricular dysfunction and underlying sarcoid heart. I agree with current plans. Will increase beta katie dosing sequentially for management of her heart rate and hypertension. The patient is chronically anticoagulated with apixaban which is ongoing. Ultimate goal will be hypertension control with intermittent use of diuretic likely. Anticipate following the patient as an outpatient given complex history, past history of defibrillator insertion. [facility]
[2017-06-02] MEDS ORDERED: AMLODIPINE BESYLATE 5 MG TAB PO ONE (11:30)
--- NOTE | 2017-06-02 18:28 | Critical Care Progress Note ---
Critical Care Progress Note Date of Service Jun 02, 2017. Attending Dr. Shepherd Subjective The patient continued to do well, her blood pressure is better controlled, currently on much lower dose of nicardipine. She denies any chest pain or shortness of breath, no events overnight, she tolerated higher doses of beta blockers. Objective Physical exam on 06/02/2017 revealed, stable vital signs, her blood pressure remains in the range of 150/90, S1-S2 regular rate and rhythm with systolic ejection murmur, lungs are clear, abdomen is benign, trace edema in the periphery, CVP in the range of 7, her labs also were reviewed. Chest x-ray showed significant improvement in pulmonary vascular congestion. Assessment & Plan #1 sarcoidosis cardiomyopathy with exacerbation. #2 low evidence of aspiration at this point. #3 improving cardiomyopathy due to #1, repeated echo showed stress related cardiomyopathy with improved ejection fraction. Discussed with Dr. Martinez, appreciate his input. #4 remains in hypertensive crisis. still requiring nicardipine drip. #5 history of PE on Eliquis. This is on a suppressive therapy rather than treatment. Her last PE according to pharmacy was 2 years ago. Appreciate pharmacy input in that regard. Plan: #1 continue with nicardipine and titrate slowly to keep map 65-80 if possible. #2 change Toprol XL to 50 mg 3 times a day. I would increase the dose to 100 twice a day in the morning. #3 I have added amlodipine 10 mg by mouth daily as well for blood pressure control. #4 continue with Eliquis at 2.5 mg by mouth twice a day. #5 discontinue vancomycin. #6 discontinue aztreonam. #7 doxycycline 100 mg by mouth twice a day for total of 5 days. #8 continue with the steroids and change it to every 12 hours. #9 the patient did not require pulses steroids so far. #10 echocardiogram repeated and reviewed with Dr. Martinez. #11 case discussed with the staff on rounds and details. #12 patient remains in ICU status. #13 discussed with the patient, all her questions being answered. CCT 45 minutes. Data Medications: Current Inpatient Medications Medications (Trade) Dose Ordered Sig/Yessy Route Start Time Stop Time Status Last Admin Dose Admin Al Hydrox/Mg Hydrox/Simethicone (Maalox Max Susp) 15 ml Q4H PRN PO 05/31/17 13:30 06/30/17 13:29 06/02/17 13:55 15 ML Magnesium Hydroxide (Milk Of Magnesia Susp) 30 ml Q12H PRN PO 05/31/17 13:30 06/30/17 13:29 Ondansetron HCl (Zofran Inj) 4 mg Q6H PRN IV 05/31/17 13:30 06/30/17 13:29 06/01/17 12:38 4 MG Morphine Sulfate (MoRPHine SULFATE INJ) 2 mg Q30M PRN IV 05/31/17 13:30 06/14/17 13:29 06/01/17 12:39 2 MG Aspirin (Ecotrin Tab) 81 mg QAM PO 06/01/17 09:00 07/01/17 08:59 06/02/17 08:03 81 MG Polyethylene (Miralax Powder Packet) 17 gm DAILY PRN PO 05/31/17 13:30 06/30/17 13:29 Miscellaneous (Iv Fluids Completed) 1 ea PRN PRN N/A 05/31/17 13:45 05/31/18 13:44 Cholecalciferol (Vitamin D Tab) 1,000 inter.unit DAILY PO 06/01/17 09:00 07/01/17 08:59 06/02/17 08:04 1,000 INTER.UNIT Folic Acid (Folvite Tab) 1 mg DAILY PO 06/01/17 09:00 07/01/17 08:59 06/02/17 08:03 1 MG Acetaminophen/ Hydrocodone Bitart (Nixa 10/325 Tab) 1 tab Q6H PRN PO 05/31/17 13:45 06/14/17 13:44 06/02/17 05:42 1 TAB Loratadine (Claritin Tab) 10 mg DAILY PRN PO 05/31/17 13:45 06/30/17 13:44 Lorazepam (Ativan Tab) 0.5 mg TID PRN PO 05/31/17 13:45 06/30/17 13:44 06/02/17 10:39 0.5 MG Potassium Chloride (Klor-Con M10) 10 meq DAILY PO 06/01/17 09:00 07/01/17 08:59 06/02/17 08:02 10 MEQ Simvastatin (Zocor Tab) 20 mg QPM PO 05/31/17 21:00 06/30/17 20:59 06/01/17 22:01 20 MG Tizanidine HCl (Zanaflex Tab) 4 mg Q6H PRN PO 05/31/17 14:00 06/30/17 13:59 06/02/17 16:44 4 MG Cyanocobalamin (Vitamin B-12 Tab) 1,000 mcg DAILY PO 06/01/17 09:00 07/01/17 08:59 06/02/17 08:02 1,000 MCG Nitroglycerin (Nitroglycerin 2% Oint) 1 inch Q6H EXT 05/31/17 14:30 06/30/17 14:29 06/02/17 13:56 1 INCH Fluticasone Propionate (Flonase Nasal [place]) 2 sprays DAILY NA 06/01/17 09:00 07/01/17 08:59 06/02/17 08:03 2 SPRAYS Albuterol (Ventolin Hfa Inhaler) 2 puffs Q4 PRN INH 05/31/17 14:45 06/30/17 14:44 Miscellaneous (Iv Fluids Completed) 1 ea PRN PRN N/A 05/31/17 15:45 05/31/18 15:44 Nitroglycerin (Nitrostat Tab) 0.4 mg Q5M PRN SL 06/01/17 12:00 07/01/17 11:59 Acetaminophen (Tylenol Tab) 650 mg Q4H PRN PO 06/01/17 12:00 07/01/17 11:59 06/01/17 22:00 650 MG Ioversol (Optiray 320) 100 ml UD PRN IV 06/01/17 14:45 06/05/17 14:44 Pantoprazole Sodium (Protonix Tab) 40 mg BID PO 06/01/17 21:00 07/01/17 08:59 06/02/17 08:02 40 MG Nicardipine HCl 25 mg/Sodium Chloride 250 ml @ 50 mls/hr Q5H IV 06/01/17 17:29 07/01/17 17:28 06/02/17 11:12 35 MLS/HR Methylprednisolone Sodium Succinate 60 mg/Syringe 0.96 ml @ 1.5 mls/min Q6 IV 06/02/17 00:00 07/02/17 00:00 06/02/17 17:57 1.5 MLS/MIN Fluticasone/ Vilanterol (Breo Ellipta 100-25 Mcg/Inh) 1 puffs DAILY INH 06/02/17 09:00 07/02/17 08:59 06/02/17 08:04 1 PUFFS Doxycycline Hyclate (Vibramycin Cap) 100 mg BID PO 06/02/17 09:00 06/09/17 08:59 06/02/17 09:48 100 MG Metoprolol Succinate (Toprol Xl Tab) 50 mg TID PO 06/02/17 14:00 06/30/17 20:59 06/02/17 13:56 50 MG Apixaban (Eliquis Tab) 2.5 mg BID PO 06/02/17 21:00 07/02/17 20:59 I & O: 24-Hour Column 06/03/17 07:59 Intake Total 1068 ml Output Total 1925 ml Balance -857 ml Vital Signs: Date Time Temp Pulse Resp B/P (MAP) Pulse Ox O2 Delivery O2 Flow Rate FiO2 06/02/17 17:30 95 25 94 06/02/17 17:16 95 25 143/92 (109) 95 Nasal Cannula 2.0 06/02/17 17:01 93 16 133/73 (93) 96 Nasal Cannula 2.0 06/02/17 16:45 98 18 149/91 (110) 100 Nasal Cannula 2.0 06/02/17 16:30 96 22 148/98 (115) 97 Nasal Cannula 2.0 06/02/17 16:15 89 24 145/87 (106) 94 Nasal Cannula 2.0 06/02/17 16:00 36.6 94 13 132/84 (100) 95 Nasal Cannula 2.0 06/02/17 16:00 96 Nasal Cannula 2.0 06/02/17 15:45 89 20 125/78 (94) 91 Nasal Cannula 2.0 06/02/17 15:30 90 21 154/94 (114) 97 Nasal Cannula 2.0 06/02/17 15:15 89 20 153/99 (117) 97 Nasal Cannula 2.0 06/02/17 15:00 94 17 140/75 (96) 94 Nasal Cannula 2.0 06/02/17 14:45 95 16 136/82 (100) 98 Nasal Cannula 2.0 06/02/17 14:30 90 12 146/82 (103) 99 Nasal Cannula 2.0 06/02/17 14:15 91 14 157/93 (114) 98 Nasal Cannula 2.0 06/02/17 14:00 93 17 142/83 (102) 97 Nasal Cannula 2.0 06/02/17 13:45 90 13 152/93 (112) 97 Nasal Cannula 2.0 06/02/17 13:30 89 13 136/83 (100) 95 Nasal Cannula 2.0 06/02/17 13:15 93 17 146/94 (111) 95 Nasal Cannula 2.0 06/02/17 13:00 91 27 137/85 (102) 97 Nasal Cannula 2.0 06/02/17 12:46 96 21 133/78 (96) 94 06/02/17 12:30 93 17 145/94 (111) 97 06/02/17 12:16 99 18 136/85 (102) 94 Nasal Cannula 2.0 06/02/17 12:00 96 Nasal Cannula 2.0 06/02/17 12:00 36.4 100 13 147/97 (114) 98 3.0 06/02/17 11:46 104 20 121/79 (93) 97 3.0 06/02/17 11:30 93 15 132/73 (92) 97 3.0 06/02/17 11:16 89 13 129/72 (91) 98 3.0 06/02/17 11:00 92 18 143/87 (105) 95 3.0 06/02/17 10:46 93 13 138/90 (106) 97 Nasal Cannula 3.0 06/02/17 10:30 95 21 132/80 (97) 95 Nasal Cannula 3.0 06/02/17 10:00 95 22 144/87 (106) 97 06/02/17 09:45 98 20 120/67 (84) 96 Nasal Cannula 3.0 06/02/17 09:30 91 21 135/81 (99) 96 Nasal Cannula 3.0 06/02/17 09:15 84 16 144/81 (102) 96 Nasal Cannula 3.0 06/02/17 09:00 91 24 129/69 (89) 95 Nasal Cannula 3.0 06/02/17 08:45 95 18 115/63 (80) 98 Nasal Cannula 3.0 06/02/17 08:30 110 17 120/59 (79) 92 Nasal Cannula 3.0 06/02/17 08:15 110 15 129/91 (104) 94 Nasal Cannula 3.0 06/02/17 08:01 94 16 152/85 (107) 96 Nasal Cannula 06/02/17 08:00 Nasal Cannula 06/02/17 08:00 98 Nasal Cannula 3.0 06/02/17 08:00 36.5 92 17 152/85 (107) 96 Nasal Cannula 3.0 06/02/17 07:45 87 16 147/85 (105) 96 Nasal Cannula 3.0 06/02/17 07:30 90 16 156/85 (108) 94 Nasal Cannula 3.0 06/02/17 07:15 92 14 158/89 (112) 95 Nasal Cannula 3.0 06/02/17 07:00 88 13 150/99 (116) 96 06/02/17 06:01 93 22 148/90 (105) 99 06/02/17 05:31 85 13 150/84 (96) 97 06/02/17 05:01 82 18 160/89 (98) 96 06/02/17 04:31 79 17 161/87 (102) 96 06/02/17 04:01 79 15 154/87 (99) 96 06/02/17 04:00 36.6 06/02/17 04:00 97 Nasal Cannula 3.0 06/02/17 03:31 81 14 150/82 (96) 97 06/02/17 03:01 79 17 149/80 (96) 96 06/02/17 02:31 77 12 147/79 (95) 97 06/02/17 02:01 82 10 129/67 (79) 98 06/02/17 01:31 88 11 138/62 (80) 99 06/02/17 01:01 81 13 133/78 (96) 96 06/02/17 00:31 82 17 140/80 (96) 94 06/02/17 00:16 77 14 140/73 (89) 97 06/02/17 00:01 84 15 142/72 (95) 95 06/01/17 23:59 95 Nasal Cannula 3.0 06/01/17 23:59 36.6 06/01/17 23:45 81 19 132/71 (94) 96 06/01/17 23:31 83 10 106/73 (87) 97 06/01/17 23:16 81 14 108/82 (89) 96 06/01/17 23:01 81 12 122/80 (93) 95 06/01/17 22:46 84 12 128/75 (106) 95 06/01/17 22:31 87 17 115/69 (78) 94 06/01/17 22:16 80 17 121/70 (86) 91 06/01/17 21:46 79 19 140/94 (116) 95 06/01/17 21:31 81 14 121/96 (102) 96 06/01/17 21:16 83 14 115/85 (94) 93 06/01/17 20:46 81 19 110/76 (82) 91 06/01/17 20:16 86 23 107/79 (83) 91 06/01/17 20:01 83 10 108/81 (87) 93 06/01/17 20:00 94 Nasal Cannula 3.0 06/01/17 20:00 36.7 06/01/17 19:46 83 11 133/88 (94) 93 06/01/17 19:34 86 14 119/73 (76) 96 06/01/17 19:01 88 11 123/74 (90) 94 06/01/17 19:00 88 11 123/74 (90) 94 Nasal Cannula 3.0 06/01/17 18:45 85 7 119/88 (98) 93 Nasal Cannula 3.0 06/01/17 18:30 88 7 115/86 (96) 91 Nasal Cannula 2.0 06/01/17 18:26 93 11 111/86 (94) 92 Laboratory Results: Last 24 Hours Test 06/01/17 23:38 06/02/17 05:22 06/02/17 05:26 06/02/17 11:23 Bedside Glucose 164 mg/dl 170 mg/dl 174 mg/dl White Blood Count 16.33 K/uL Red Blood Count 4.78 M/uL Hemoglobin 15.1 g/dL Hematocrit 44.5 % Mean Corpuscular Volume 93.1 fL Mean Corpuscular Hemoglobin 31.6 pg Mean Corpuscular Hemoglobin Concent 33.9 g/dl Platelet Count 303 K/uL Mean Platelet Volume 9.4 fL Neutrophils (%) (Auto) 92.9 % Lymphocytes (%) (Auto) 4.7 % Monocytes (%) (Auto) 2.1 % Eosinophils (%) (Auto) 0.0 % Basophils (%) (Auto) 0.0 % Neutrophils # (Auto) 15.17 K/uL Lymphocytes # (Auto) 0.76 K/uL Monocytes # (Auto) 0.35 K/uL Eosinophils # (Auto) 0.00 K/uL Basophils # (Auto) 0.00 K/uL RDW Standard Deviation 47.9 fL RDW Coefficient of Variation 14.3 % Immature Granulocyte % (Auto) 0.3 % Immature Granulocyte # (Auto) 0.05 K/uL Sodium Level 137 mmol/L Potassium Level 3.5 mmol/L Chloride Level 104 mmol/L Carbon Dioxide Level 26 mmol/L Anion Gap 7.0 mmol/L Blood Urea Nitrogen 14 mg/dl Creatinine 0.81 mg/dl Est Creatinine Clear Calc Drug Dose 84.3 ml/min Estimated GFR () 92.1 Estimated GFR (Non- 79.5 BUN/Creatinine Ratio 17.0 Random Glucose 163 mg/dl Calcium Level 8.5 mg/dl Phosphorus Level 2.8 mg/dl Magnesium Level 2.4 mg/dl Total Creatine Kinase 2651 U/L Creatine Kinase MB 317.7 ng/ml Creatine Kinase MB Ratio 12.0 Troponin I 66.100 ng/ml Pro-B-Type Natriuretic Peptide 2315 pg/ml Test 06/02/17 16:24 Bedside Glucose 141 mg/dl
[2017-06-02] MEDS: SIMVASTATIN 20 MG TAB PO SCH (20:35)
[2017-06-02] MEDS ORDERED: APIXABAN 2.5 MG TAB PO SCH (21:00)
--- NOTE | 2017-06-02 21:29 | Progress Note ---
Medicine Progress Note Date & Time of Visit: Jun 02, 2017 at 11:41. Subjective 57 yo female with cardiac sarcoidosis and acute NICM with depressed EF presented initially with chest pain, underwent cardiac catheterization which was clear. This was complicated by a hypertensive crisis thought to be related to catecholamine surge and possibly contrast reaction. She was placed into the ICU yesterday and put on a nicardipine drip with improvement in breathing and BP this morning. Her chest pressure has resolved and she is tolerating PO. She is requesting her Elavil for tonight because she reports that she feels herself withdrawing from it Objective Last 8 Hrs Date Time Temp Pulse Resp B/P (MAP) Pulse Ox O2 Delivery O2 Flow Rate FiO2 06/02/17 10:00 95 22 144/87 (106) 97 06/02/17 09:45 98 20 120/67 (84) 96 Nasal Cannula 3.0 06/02/17 09:30 91 21 135/81 (99) 96 Nasal Cannula 3.0 06/02/17 09:15 84 16 144/81 (102) 96 Nasal Cannula 3.0 06/02/17 09:00 91 24 129/69 (89) 95 Nasal Cannula 3.0 06/02/17 08:45 95 18 115/63 (80) 98 Nasal Cannula 3.0 06/02/17 08:30 110 17 120/59 (79) 92 Nasal Cannula 3.0 06/02/17 08:15 110 15 129/91 (104) 94 Nasal Cannula 3.0 06/02/17 08:01 94 16 152/85 (107) 96 Nasal Cannula 06/02/17 08:00 98 Nasal Cannula 3.0 06/02/17 08:00 36.5 92 17 152/85 (107) 96 Nasal Cannula 3.0 06/02/17 07:45 87 16 147/85 (105) 96 Nasal Cannula 3.0 06/02/17 07:30 90 16 156/85 (108) 94 Nasal Cannula 3.0 06/02/17 07:15 92 14 158/89 (112) 95 Nasal Cannula 3.0 06/02/17 07:00 88 13 150/99 (116) 96 06/02/17 06:01 93 22 148/90 (105) 99 06/02/17 05:31 85 13 150/84 (96) 97 06/02/17 05:01 82 18 160/89 (98) 96 06/02/17 04:31 79 17 161/87 (102) 96 06/02/17 04:01 79 15 154/87 (99) 96 06/02/17 04:00 36.6 06/02/17 04:00 97 Nasal Cannula 3.0 Physical Exam: GEN:obese ,no acute distress, alert and appropriate HEENT: NC/AT, normal sclerae, MMM CARDIO: reg rate, S1/2 heard without m/g/r but distant heart sounds, 2+ peripheral pulses and extremities are warm and well-perfused. LUNGS: CTA bilaterally, no crackles, rales or wheezes, good diaphragmatic excursion ABD: soft, non-tender, non-distended, no rebound or guarding, +BS EXTREMITY: RP and DP palpable 2+ bilat, no LE swelling or edema, extremities are warm and well-perfused NEURO: CN 2-12 grossly intact, no gross focal deficits. MUSC: moving all extremities equally. SKIN: warm and dry Laboratory Results: 06/02/17 05:22 Red Blood Count 4.78, Mean Corpuscular Volume 93.1, Mean Corpuscular Hemoglobin 31.6, Mean Corpuscular Hemoglobin Concent 33.9, Mean Platelet Volume 9.4, Neutrophils (%) (Auto) 92.9, Lymphocytes (%) (Auto) 4.7, Monocytes (%) (Auto) 2.1, Eosinophils (%) (Auto) 0.0, Basophils (%) (Auto) 0.0, Neutrophils # (Auto) 15.17, Lymphocytes # (Auto) 0.76, Monocytes # (Auto) 0.35, Eosinophils # (Auto) 0.00, Basophils # (Auto) 0.00 06/02/17 05:22 Test 05/31/17 11:30 05/31/17 22:15 06/01/17 07:47 06/01/17 15:39 Prothrombin Time 10.0 SECONDS (9.0-12.0) Prothromb Time International Ratio 1.0 (0.9-1.1) Activated Partial Thromboplast Time 28.9 SECONDS (21.0-31.0) Partial Thromboplastin Ratio 1.1 Total Bilirubin 0.3 mg/dl (0.2-1) Aspartate Amino Transf (AST/SGOT) 20 U/L (15-37) Alanine Aminotransferase (ALT/SGPT) 35 U/L (12-78) Alkaline Phosphatase 121 U/L (45-117) Total Protein 7.0 gm/dl (6.4-8.2) Albumin 3.3 gm/dl (3.4-5.0) Globulin 3.7 gm/dl (2.5-4.0) Albumin/Globulin Ratio 0.9 (0.9-2) Thyroid Stimulating Hormone (TSH) 1.110 uIu/ml (0.300-4.500) Urine Color YELLOW Urine Appearance CLEAR (CLEAR) Urine pH 7.0 (4.5-7.5) Urine Specific [place] <= 1.005 (1.000-1.030) Urine Protein NEG (NEG) Urine Glucose (UA) NEG (NEG) Urine Ketones NEG (NEG) Urine Occult Blood 1+ (NEG) Urine Nitrite NEG (NEG) Urine Bilirubin NEG (NEG) Urine Urobilinogen NEG (NEG) Urine Leukocyte Esterase NEG (NEG) Urine RBC 0-4 /hpf (0-4) Urine WBC 0 /hpf (0-5) Urine Epithelial Cells >30 /lpf (0-5) Urine Bacteria NEG (NEG) Urine Hyaline Casts 0 /lpf (0-5) Triglycerides Level 58 mg/dl (0-150) Cholesterol Level 159 mg/dl (0-200) HDL Cholesterol 57 mg/dl LDL Cholesterol, Calculated 90 mg/dl VLDL Cholesterol, Calculated 12 mg/dl Cholesterol/HDL Ratio 2.8 Procalcitonin < 0.05 ng/ml (0-0.5) Test 06/01/17 17:49 06/02/17 05:22 06/02/17 20:17 Venous Blood pH 7.29 (7.36-7.41) Venous Blood Partial Pressure CO2 55 mmHg (38.0-50.0) Venous Blood Partial Pressure O2 43 mmHg Venous Blood HCO3 26 mmol/L Venous Blood Oxygen Saturation 72.2 % Venous Blood Base Excess -2.1 mEq/L White Blood Count 16.33 K/uL (4.8-10.8) Red Blood Count 4.78 M/uL (4.2-5.4) Hemoglobin 15.1 g/dL (12.0-16.0) Hematocrit 44.5 % (37-47) Mean Corpuscular Volume 93.1 fL (80-100) Mean Corpuscular Hemoglobin 31.6 pg (25-34) Mean Corpuscular Hemoglobin Concent 33.9 g/dl (32-36) Platelet Count 303 K/uL (130-400) Mean Platelet Volume 9.4 fL (7.4-10.4) Neutrophils (%) (Auto) 92.9 % Lymphocytes (%) (Auto) 4.7 % Monocytes (%) (Auto) 2.1 % Eosinophils (%) (Auto) 0.0 % Basophils (%) (Auto) 0.0 % Neutrophils # (Auto) 15.17 K/uL (1.4-6.5) Lymphocytes # (Auto) 0.76 K/uL (1.2-3.4) Monocytes # (Auto) 0.35 K/uL (0.11-0.59) Eosinophils # (Auto) 0.00 K/uL (0-0.5) Basophils # (Auto) 0.00 K/uL (0-0.2) RDW Standard Deviation 47.9 fL (36.4-46.3) RDW Coefficient of Variation 14.3 % (11.5-14.5) Immature Granulocyte % (Auto) 0.3 % Immature Granulocyte # (Auto) 0.05 K/uL (0.00-0.02) Anion Gap 7.0 mmol/L (3-11) Est Creatinine Clear Calc Drug Dose 84.3 ml/min Estimated GFR () 92.1 Estimated GFR (Non- 79.5 BUN/Creatinine Ratio 17.0 (10-20) Calcium Level 8.5 mg/dl (8.5-10.1) Phosphorus Level 2.8 mg/dl (2.5-4.9) Magnesium Level 2.4 mg/dl (1.8-2.4) Total Creatine Kinase 2651 U/L (26-192) Creatine Kinase MB 317.7 ng/ml (0.5-3.6) Creatine Kinase MB Ratio 12.0 (0-3.0) Troponin I 66.100 ng/ml (0-0.045) Pro-B-Type Natriuretic Peptide 2315 pg/ml (0-900) Bedside Glucose 161 mg/dl (70-90) Last 24 Hours Test 06/01/17 13:07 06/01/17 15:39 06/01/17 17:49 06/01/17 23:38 Troponin I 0.103 ng/ml Procalcitonin < 0.05 ng/ml White Blood Count 19.63 K/uL Red Blood Count 4.97 M/uL Hemoglobin 16.2 g/dL Hematocrit 46.3 % Mean Corpuscular Volume 93.2 fL Mean Corpuscular Hemoglobin 32.6 pg Mean Corpuscular Hemoglobin Concent 35.0 g/dl Platelet Count 348 K/uL Mean Platelet Volume 9.5 fL Neutrophils (%) (Auto) 96.1 % Lymphocytes (%) (Auto) 2.8 % Monocytes (%) (Auto) 0.6 % Eosinophils (%) (Auto) 0.0 % Basophils (%) (Auto) 0.1 % Neutrophils # (Auto) 18.88 K/uL Lymphocytes # (Auto) 0.55 K/uL Monocytes # (Auto) 0.12 K/uL Eosinophils # (Auto) 0.00 K/uL Basophils # (Auto) 0.01 K/uL RDW Standard Deviation 48.2 fL RDW Coefficient of Variation 14.4 % Immature Granulocyte % (Auto) 0.4 % Immature Granulocyte # (Auto) 0.07 K/uL Venous Blood pH 7.29 Venous Blood Partial Pressure CO2 55 mmHg Venous Blood Partial Pressure O2 43 mmHg Venous Blood HCO3 26 mmol/L Venous Blood Oxygen Saturation 72.2 % Venous Blood Base Excess -2.1 mEq/L Sodium Level 138 mmol/L Potassium Level 4.3 mmol/L Chloride Level 106 mmol/L Carbon Dioxide Level 25 mmol/L Anion Gap 7.0 mmol/L Blood Urea Nitrogen 13 mg/dl Creatinine 0.89 mg/dl Est Creatinine Clear Calc Drug Dose 81.7 ml/min Estimated GFR () 82.2 Estimated GFR (Non- 70.9 BUN/Creatinine Ratio 14.2 Random Glucose 161 mg/dl Calcium Level 8.7 mg/dl Pro-B-Type Natriuretic Peptide 1010 pg/ml Bedside Glucose 164 mg/dl Test 06/02/17 05:22 06/02/17 05:26 06/02/17 11:23 White Blood Count 16.33 K/uL Red Blood Count 4.78 M/uL Hemoglobin 15.1 g/dL Hematocrit 44.5 % Mean Corpuscular Volume 93.1 fL Mean Corpuscular Hemoglobin 31.6 pg Mean Corpuscular Hemoglobin Concent 33.9 g/dl Platelet Count 303 K/uL Mean Platelet Volume 9.4 fL Neutrophils (%) (Auto) 92.9 % Lymphocytes (%) (Auto) 4.7 % Monocytes (%) (Auto) 2.1 % Eosinophils (%) (Auto) 0.0 % Basophils (%) (Auto) 0.0 % Neutrophils # (Auto) 15.17 K/uL Lymphocytes # (Auto) 0.76 K/uL Monocytes # (Auto) 0.35 K/uL Eosinophils # (Auto) 0.00 K/uL Basophils # (Auto) 0.00 K/uL RDW Standard Deviation 47.9 fL RDW Coefficient of Variation 14.3 % Immature Granulocyte % (Auto) 0.3 % Immature Granulocyte # (Auto) 0.05 K/uL Sodium Level 137 mmol/L Potassium Level 3.5 mmol/L Chloride Level 104 mmol/L Carbon Dioxide Level 26 mmol/L Anion Gap 7.0 mmol/L Blood Urea Nitrogen 14 mg/dl Creatinine 0.81 mg/dl Est Creatinine Clear Calc Drug Dose 84.3 ml/min Estimated GFR () 92.1 Estimated GFR (Non- 79.5 BUN/Creatinine Ratio 17.0 Random Glucose 163 mg/dl Calcium Level 8.5 mg/dl Phosphorus Level 2.8 mg/dl Magnesium Level 2.4 mg/dl Total Creatine Kinase 2651 U/L Creatine Kinase MB 317.7 ng/ml Creatine Kinase MB Ratio 12.0 Troponin I 66.100 ng/ml Pro-B-Type Natriuretic Peptide 2315 pg/ml Bedside Glucose 170 mg/dl 174 mg/dl Assessment & Plan 57 yo female with cardiac sarcoidosis and acute NICM with depressed EF presented initially with chest pain, underwent cardiac catheterization which was clear. This was complicated by a hypertensive crisis thought to be related to catecholamine surge and possibly contrast reaction. She was placed into the ICU yesterday and put on a nicardipine drip with improvement in breathing and BP this morning. Her chest pressure has resolved and she is tolerating PO. She is requesting her Elavil for tonight because she reports that she feels herself withdrawing from it 1. NICM thought to be related to stress-induced cardiomyopathy and/or contrast allergy and/or exacerbation of cardiac sarcoid-cont to control BP and provide supportive care in ICU. TTE reveals EF 45% compared to last couple of days EF 25%. CP has resolved. Cont per Cards and ICU team. 2. 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 Pt denied any ICD firing. Interrogation ordered. Takes MTX once weekly and folic acid. 4. Hypertensive crisis-remains in ICU on nicardipine. Per ICU team. 5. h/o contrast allergy 6. Depression- Elavil restarted at patient request. Thought ICU team were restarting SSRI, but didn't see this listed on JUN. 7. h/o PE and DVT: on Eliquis 2.5mg BID FULL CODE DVT PROPHYLAXIS : on Eliquis DISPOSITION : cont ICU care. [facility]. Consultants: [facility] Current Inpatient Medications: Current Inpatient Medications Medications (Trade) Dose Ordered Sig/Yessy Route Start Time Stop Time Status Last Admin Dose Admin Al Hydrox/Mg Hydrox/Simethicone (Maalox Max Susp) 15 ml Q4H PRN PO 05/31/17 13:30 06/30/17 13:29 06/02/17 05:40 15 ML Magnesium Hydroxide (Milk Of Magnesia Susp) 30 ml Q12H PRN PO 05/31/17 13:30 06/30/17 13:29 Ondansetron HCl (Zofran Inj) 4 mg Q6H PRN IV 05/31/17 13:30 06/30/17 13:29 06/01/17 12:38 4 MG Morphine Sulfate (MoRPHine SULFATE INJ) 2 mg Q30M PRN IV 05/31/17 13:30 06/14/17 13:29 06/01/17 12:39 2 MG Aspirin (Ecotrin Tab) 81 mg QAM PO 06/01/17 09:00 07/01/17 08:59 06/02/17 08:03 81 MG Polyethylene (Miralax Powder Packet) 17 gm DAILY PRN PO 05/31/17 13:30 06/30/17 13:29 Miscellaneous (Iv Fluids Completed) 1 ea PRN PRN N/A 05/31/17 13:45 05/31/18 13:44 Cholecalciferol (Vitamin D Tab) 1,000 inter.unit DAILY PO 06/01/17 09:00 07/01/17 08:59 06/02/17 08:04 1,000 INTER.UNIT Folic Acid (Folvite Tab) 1 mg DAILY PO 06/01/17 09:00 07/01/17 08:59 06/02/17 08:03 1 MG Acetaminophen/ Hydrocodone Bitart ([place] 10/325 Tab) 1 tab Q6H PRN PO 05/31/17 13:45 06/14/17 13:44 06/02/17 05:42 1 TAB Loratadine (Claritin Tab) 10 mg DAILY PRN PO 05/31/17 13:45 06/30/17 13:44 Lorazepam (Ativan Tab) 0.5 mg TID PRN PO 05/31/17 13:45 06/30/17 13:44 06/02/17 10:39 0.5 MG Potassium Chloride (Klor-Con M10) 10 meq DAILY PO 06/01/17 09:00 07/01/17 08:59 06/02/17 08:02 10 MEQ Simvastatin (Zocor Tab) 20 mg QPM PO 05/31/17 21:00 06/30/17 20:59 06/01/17 22:01 20 MG Tizanidine HCl (Zanaflex Tab) 4 mg Q6H PRN PO 05/31/17 14:00 06/30/17 13:59 Cyanocobalamin (Vitamin B-12 Tab) 1,000 mcg DAILY PO 06/01/17 09:00 07/01/17 08:59 06/02/17 08:02 1,000 MCG Nitroglycerin (Nitroglycerin 2% Oint) 1 inch Q6H EXT 05/31/17 14:30 06/30/17 14:29 06/02/17 08:30 1 INCH Fluticasone Propionate (Flonase Nasal [place]) 2 sprays DAILY NA 06/01/17 09:00 07/01/17 08:59 06/02/17 08:03 2 SPRAYS Albuterol (Ventolin Hfa Inhaler) 2 puffs Q4 PRN INH 05/31/17 14:45 06/30/17 14:44 Miscellaneous (Iv Fluids Completed) 1 ea PRN PRN N/A 05/31/17 15:45 05/31/18 15:44 Nitroglycerin (Nitrostat Tab) 0.4 mg Q5M PRN SL 06/01/17 12:00 07/01/17 11:59 Acetaminophen (Tylenol Tab) 650 mg Q4H PRN PO 06/01/17 12:00 07/01/17 11:59 06/01/17 22:00 650 MG Ioversol (Optiray 320) 100 ml UD PRN IV 06/01/17 14:45 06/05/17 14:44 Pantoprazole Sodium (Protonix Tab) 40 mg BID PO 06/01/17 21:00 07/01/17 08:59 06/02/17 08:02 40 MG Nicardipine HCl 25 mg/Sodium Chloride 250 ml @ 50 mls/hr Q5H IV 06/01/17 17:29 07/01/17 17:28 06/02/17 11:12 35 MLS/HR Methylprednisolone Sodium Succinate 60 mg/Syringe 0.96 ml @ 1.5 mls/min Q6 IV 06/02/17 00:00 07/02/17 00:00 06/02/17 05:38 1.5 MLS/MIN Fluticasone/ Vilanterol (Breo Ellipta 100-25 Mcg/Inh) 1 puffs DAILY INH 06/02/17 09:00 07/02/17 08:59 06/02/17 08:04 1 PUFFS Doxycycline Hyclate (Vibramycin Cap) 100 mg BID PO 06/02/17 09:00 06/09/17 08:59 06/02/17 09:48 100 MG Apixaban (Eliquis Tab) 5 mg BID PO 06/02/17 21:00 07/01/17 20:59 Metoprolol Succinate (Toprol Xl Tab) 50 mg TID PO 06/02/17 14:00 06/30/17 20:59
[2017-06-02] MEDS: AMITRIPTYLINE HCL 50 MG TAB PO SCH (22:27)
[2017-06-03] VITALS (27 sets, daily range): BP systolic 104–172; BP diastolic 54–94; PULSE 66–96; TEMP 36.5–36.9; O2SAT 92–98
[2017-06-03] MEDS ORDERED: NiCARDipine IV 25 MG in SODIUM CHLORIDE 0.9% 250ML 240 ML IV PRN (00:15)
[2017-06-03] MEDS: NITROGLYCERIN 2% OINTMENT 30GM TUBE EXT SCH ×2 (02:47→09:03)
[2017-06-03] MEDS: METHYLPREDNISOLONE IV 60 MG in SYRINGE 0 ML IV SCH ×3 (05:43→23:47)
[2017-06-03 06:07] LABS: CALCIUM 8.6 mg/dl (8.5-10.1); CREATININE 0.87 mg/dl (0.60-1.20); POTASSIUM 3.9 mmol/L (3.5-5.1)
[2017-06-03] MEDS ORDERED: VANCOMYCIN TROUGH ONE (08:30)
[2017-06-03] MEDS: FLUTICASONE PROPIONATE NA SPR 16 GM BTL SCH (08:57)
[2017-06-03] MEDS: FLUTICASONE FUROATE-VILANTEROL 30 PUFFS/INHALER INH INH SCH (08:57)
[2017-06-03] MEDS: APIXABAN 2.5 MG TAB PO SCH ×2 (08:58→20:52)
[2017-06-03] MEDS: ASPIRIN 81 MG ECTAB PO SCH (08:58)
[2017-06-03] MEDS: POTASSIUM CHLORIDE 10 MEQ TABCR PO SCH (08:58)
[2017-06-03] MEDS: PANTOprazole SOD 40 MG TAB PO SCH ×2 (08:59→21:19)
[2017-06-03] MEDS: CYANOCOBALAMIN 500 MCG TAB (VIT B-12) PO SCH (09:00)
[2017-06-03] MEDS: METOPROLOL SUCC 50MG EXT REL TAB PO SCH ×3 (09:00→20:52)
[2017-06-03] MEDS: DOXYCYCLINE HYCLATE 100 MG CAP PO SCH ×2 (09:00→21:19)
[2017-06-03] MEDS: CHOLECALCIFEROL 1000 INTER.UNIT TAB PO SCH (09:01)
[2017-06-03] MEDS: ACETAMINOPHEN 325 MG TAB PO PRN (09:15)
[2017-06-03] MEDS ORDERED: LEVOTHYROXINE 112 MCG TAB PO ONE (09:30)
--- NOTE | 2017-06-03 10:37 | Cardiology Follow-Up ---
Subjective General Date of Service: Jun 03, 2017. Chief Complaint: Follow-up chest pain, shortness of breath Pt evaluation today including: conversation w/ patient, physical exam History of Present Illness The patient is a 57 year old female seen in cardiology follow-up in the intensive care unit, room 103. Patient states she is feeling well. Her presenting symptoms of chest discomfort and shortness of breath have completely resolved. IV nicardipine was weaned this morning at 5:45 AM. Her blood pressure is currently well controlled. Allergies Coded Allergies: Lisinopril (Verified Allergy, Severe, ANAPHYLAXIS, 06/01/17) Lidocaine (Verified Allergy, Intermediate, ITCHY,RASH, 06/01/17) Penicillins (Verified Allergy, Intermediate, ITCHY,RASH, 06/01/17) Adhesives (Verified Allergy, Unknown, RASH, SKIN IRRATATION, 05/31/17) Iodinated Diagnostic Agents (Verified Allergy, Unknown, UNKNOWN, 05/31/17) Social History Smoking Status: Never Smoker Hx Tobacco Use In Past Year?: No Hx Alcohol Use - Type And Amou: Yes (occasionally) Hx Substance Use - Type And Am: No Problem List Medical Problems: (1) Precordial chest pain Status: Acute Physical Exam Vital Signs Last Vital Signs Documentation Date Time Temp Pulse Resp B/P (MAP) Pulse Ox O2 Delivery O2 Flow Rate FiO2 06/03/17 08:00 94 Room Air 06/03/17 06:31 71 13 127/68 (84) 06/03/17 04:00 36.7 06/03/17 04:00 2.0 Physical Exam Constitutional: Level of Distress: NAD, chronically ill Neck: supple Lungs: Auscultation: no wheezing, no rales/crackles, no rhonchi Cardiovascular: Heart Auscultation: RRR, no murmurs, no rubs Extremities: no edema Neurologic: Gait & Station: pertinent finding (No focal deficits) Assessment and Plan Assessment and Plan Impression: 57-year-old female with history of sarcoidosis with pulmonary and cardiac involvement 1. Presented with chest pain and shortness of breath, likely hypertensive mediated in the setting of significant diastolic dysfunction. Symptoms progressed, and troponin had increased to 66 NG per mL the morning of 06/02/17. Follow-up cardiac catheterization revealed normal coronaries, no evidence of aortic dissection. -Clinically improved after treatment of her hypertension -Repeat echocardiogram performed yesterday compatible with stress-induced cardiomyopathy with hyperdynamic basal segments and hypokinesis of the mid and apical levels of the left ventricle, mild LV systolic dysfunction with ejection fraction of the range of 40-45% on 2. Underlying conduction system disease, left bundle branch block, for which patient has dual-chamber [employer] pacemaker AICD 3. History of DVT/PE for which she is on Eliquis as an outpatient. Plan: The patient's leukocytosis is likely due to her corticosteroid exposure, in the setting of sarcoidosis and IV contrast prophylaxis. Plan to increase metoprolol 200 mg twice daily. Moving ahead may need daily or intermittent diuretic therapy orally The patient resides in the [facility]. Her previous cardiac procedures had been performed at [facility] After discharge she is interested in following up with our practice at [facility]. DVT prophylaxis: She is back on her Eliquis. She is stable from my standpoint for transfer out of the intensive care unit, case discussed with Dr. Shepherd. Laboratory Results Last 24 Hours Test 06/02/17 11:23 06/02/17 16:24 06/02/17 20:17 06/03/17 05:32 Bedside Glucose 174 mg/dl 141 mg/dl 161 mg/dl Sodium Level 141 mmol/L Potassium Level 3.9 mmol/L Chloride Level 108 mmol/L Carbon Dioxide Level 27 mmol/L Anion Gap 6.0 mmol/L Blood Urea Nitrogen 19 mg/dl Creatinine 0.87 mg/dl Est Creatinine Clear Calc Drug Dose 78.5 ml/min Estimated GFR () 84.5 Estimated GFR (Non- 72.9 BUN/Creatinine Ratio 22.2 Random Glucose 144 mg/dl Calcium Level 8.6 mg/dl Magnesium Level 2.6 mg/dl Test 06/03/17 05:37 Bedside Glucose 143 mg/dl
[2017-06-03] MEDS: HYDROCODONE/ACETAMI 10/325 TAB PO PRN (11:34)
[2017-06-03] MEDS: LORAZEPAM 0.5 MG TAB PO PRN ×2 (13:48→22:01)
--- NOTE | 2017-06-03 15:17 | Progress Note ---
Medicine Progress Note Date & Time of Visit: Jun 03, 2017 at 13:57. Subjective 57 yo female with cardiac sarcoidosis and stress-induced cardiomyopathy presented initially with chest pain, underwent cardiac catheterization which was clear. This was complicated by a hypertensive crisis thought to be related to catecholamine surge and possibly contrast reaction in setting of cardiac sarcoid with possible flare. She was placed into the ICU and put on a nicardipine drip with improvement in breathing and BP. The Cardene drip was stopped this morning and she has no more hypoxia, off supplemental oxygen and is doing well from a symptom standpoint. She only reports her fibromyalgia pain and some upper back pain which is bothering her. She is off her Cymbalta and wants to restart that and manages her FM with [place] at home. We discussed starting a trial of gabapentin and restarting her Cymbalta, and she is in favor of this to help her come off the narcotics. Objective Last 8 Hrs Date Time Temp Pulse Resp B/P (MAP) Pulse Ox O2 Delivery O2 Flow Rate FiO2 06/03/17 13:40 36.5 89 16 94 06/03/17 13:00 36.5 89 16 153/93 (113) Room Air 06/03/17 12:00 94 Room Air 06/03/17 11:30 90 19 162/92 (115) 95 Room Air 06/03/17 10:31 84 15 145/86 (105) 95 Room Air 06/03/17 10:00 96 22 155/82 (106) 94 Room Air 06/03/17 08:00 86 17 148/82 (104) 92 Room Air 06/03/17 08:00 94 Room Air 06/03/17 06:31 71 13 127/68 (84) 98 06/03/17 06:01 70 12 128/76 (100) 97 Physical Exam: GEN:obese ,no acute distress, alert and appropriate HEENT: NC/AT, normal sclerae, MMM CARDIO: reg rate, S1/2 heard without m/g/r but distant heart sounds, 2+ peripheral pulses and extremities are warm and well-perfused. LUNGS: CTA bilaterally, no crackles, rales or wheezes, good diaphragmatic excursion ABD: soft, non-tender, non-distended, no rebound or guarding, +BS EXTREMITY: RP and DP palpable 2+ bilat, no LE swelling or edema, extremities are warm and well-perfused NEURO: CN 2-12 grossly intact, no gross focal deficits. MUSC: moving all extremities equally. SKIN: warm and dry Laboratory Results: 06/02/17 05:22 Red Blood Count 4.78, Mean Corpuscular Volume 93.1, Mean Corpuscular Hemoglobin 31.6, Mean Corpuscular Hemoglobin Concent 33.9, Mean Platelet Volume 9.4, Neutrophils (%) (Auto) 92.9, Lymphocytes (%) (Auto) 4.7, Monocytes (%) (Auto) 2.1, Eosinophils (%) (Auto) 0.0, Basophils (%) (Auto) 0.0, Neutrophils # (Auto) 15.17, Lymphocytes # (Auto) 0.76, Monocytes # (Auto) 0.35, Eosinophils # (Auto) 0.00, Basophils # (Auto) 0.00 06/03/17 05:32 Test 05/31/17 11:30 05/31/17 22:15 06/01/17 07:47 06/01/17 15:39 Prothrombin Time 10.0 SECONDS (9.0-12.0) Prothromb Time International Ratio 1.0 (0.9-1.1) Activated Partial Thromboplast Time 28.9 SECONDS (21.0-31.0) Partial Thromboplastin Ratio 1.1 Total Bilirubin 0.3 mg/dl (0.2-1) Aspartate Amino Transf (AST/SGOT) 20 U/L (15-37) Alanine Aminotransferase (ALT/SGPT) 35 U/L (12-78) Alkaline Phosphatase 121 U/L (45-117) Total Protein 7.0 gm/dl (6.4-8.2) Albumin 3.3 gm/dl (3.4-5.0) Globulin 3.7 gm/dl (2.5-4.0) Albumin/Globulin Ratio 0.9 (0.9-2) Thyroid Stimulating Hormone (TSH) 1.110 uIu/ml (0.300-4.500) Urine Color YELLOW Urine Appearance CLEAR (CLEAR) Urine pH 7.0 (4.5-7.5) Urine Specific [place] <= 1.005 (1.000-1.030) Urine Protein NEG (NEG) Urine Glucose (UA) NEG (NEG) Urine Ketones NEG (NEG) Urine Occult Blood 1+ (NEG) Urine Nitrite NEG (NEG) Urine Bilirubin NEG (NEG) Urine Urobilinogen NEG (NEG) Urine Leukocyte Esterase NEG (NEG) Urine RBC 0-4 /hpf (0-4) Urine WBC 0 /hpf (0-5) Urine Epithelial Cells >30 /lpf (0-5) Urine Bacteria NEG (NEG) Urine Hyaline Casts 0 /lpf (0-5) Triglycerides Level 58 mg/dl (0-150) Cholesterol Level 159 mg/dl (0-200) HDL Cholesterol 57 mg/dl LDL Cholesterol, Calculated 90 mg/dl VLDL Cholesterol, Calculated 12 mg/dl Cholesterol/HDL Ratio 2.8 Procalcitonin < 0.05 ng/ml (0-0.5) Test 06/01/17 17:49 06/02/17 05:22 06/03/17 05:32 06/03/17 10:56 Venous Blood pH 7.29 (7.36-7.41) Venous Blood Partial Pressure CO2 55 mmHg (38.0-50.0) Venous Blood Partial Pressure O2 43 mmHg Venous Blood HCO3 26 mmol/L Venous Blood Oxygen Saturation 72.2 % Venous Blood Base Excess -2.1 mEq/L White Blood Count 16.33 K/uL (4.8-10.8) Red Blood Count 4.78 M/uL (4.2-5.4) Hemoglobin 15.1 g/dL (12.0-16.0) Hematocrit 44.5 % (37-47) Mean Corpuscular Volume 93.1 fL (80-100) Mean Corpuscular Hemoglobin 31.6 pg (25-34) Mean Corpuscular Hemoglobin Concent 33.9 g/dl (32-36) Platelet Count 303 K/uL (130-400) Mean Platelet Volume 9.4 fL (7.4-10.4) Neutrophils (%) (Auto) 92.9 % Lymphocytes (%) (Auto) 4.7 % Monocytes (%) (Auto) 2.1 % Eosinophils (%) (Auto) 0.0 % Basophils (%) (Auto) 0.0 % Neutrophils # (Auto) 15.17 K/uL (1.4-6.5) Lymphocytes # (Auto) 0.76 K/uL (1.2-3.4) Monocytes # (Auto) 0.35 K/uL (0.11-0.59) Eosinophils # (Auto) 0.00 K/uL (0-0.5) Basophils # (Auto) 0.00 K/uL (0-0.2) RDW Standard Deviation 47.9 fL (36.4-46.3) RDW Coefficient of Variation 14.3 % (11.5-14.5) Immature Granulocyte % (Auto) 0.3 % Immature Granulocyte # (Auto) 0.05 K/uL (0.00-0.02) Phosphorus Level 2.8 mg/dl (2.5-4.9) Total Creatine Kinase 2651 U/L (26-192) Creatine Kinase MB 317.7 ng/ml (0.5-3.6) Creatine Kinase MB Ratio 12.0 (0-3.0) Pro-B-Type Natriuretic Peptide 2315 pg/ml (0-900) Anion Gap 6.0 mmol/L (3-11) Est Creatinine Clear Calc Drug Dose 78.5 ml/min Estimated GFR () 84.5 Estimated GFR (Non- 72.9 BUN/Creatinine Ratio 22.2 (10-20) Calcium Level 8.6 mg/dl (8.5-10.1) Magnesium Level 2.6 mg/dl (1.8-2.4) Troponin I 24.700 ng/ml (0-0.045) Test 06/03/17 11:33 Bedside Glucose 173 mg/dl (70-90) Last 24 Hours Test 06/02/17 16:24 06/02/17 20:17 06/03/17 05:32 06/03/17 05:37 Bedside Glucose 141 mg/dl 161 mg/dl 143 mg/dl Sodium Level 141 mmol/L Potassium Level 3.9 mmol/L Chloride Level 108 mmol/L Carbon Dioxide Level 27 mmol/L Anion Gap 6.0 mmol/L Blood Urea Nitrogen 19 mg/dl Creatinine 0.87 mg/dl Est Creatinine Clear Calc Drug Dose 78.5 ml/min Estimated GFR () 84.5 Estimated GFR (Non- 72.9 BUN/Creatinine Ratio 22.2 Random Glucose 144 mg/dl Calcium Level 8.6 mg/dl Magnesium Level 2.6 mg/dl Test 06/03/17 10:56 06/03/17 11:33 Troponin I 24.700 ng/ml Bedside Glucose 173 mg/dl Assessment & Plan 57 yo female with cardiac sarcoidosis and stress-induced cardiomyopathy presented initially with chest pain, underwent cardiac catheterization which was clear. This was complicated by a hypertensive crisis thought to be related to catecholamine surge and possibly contrast reaction in setting of cardiac sarcoid with possible flare. She was placed into the ICU and put on a nicardipine drip with improvement in breathing and BP. The Cardene drip was stopped this morning and she has no more hypoxia, off supplemental oxygen and is doing well from a symptom standpoint. She only reports her fibromyalgia pain and some upper back pain which is bothering her. She is off her Cymbalta and wants to restart that and manages her FM with [place] at home. We discussed starting a trial of gabapentin and restarting her Cymbalta, and she is in favor of this to help her come off the narcotics. 1. Acute NICM-etiologies include but not limited to stress-induced cardiomyopathy, contrast allergy and cardiac sarcoid flare. Per repeat TTE, EF has improved from 25-45% in two days and she continues to do well clinically. Sarcoid flare requires a 6-8 week steroid taper. Will cont on IV steroids q12h until discharge and prednisone taper after that. She will receive her MTX today. Appreciate continued Cardiology management. 2. 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 Cont management per #1 3. Hypertensive crisis-resolved, off nicardipine and nitro paste stopped. Cont Toprol. 4. Fibromyalgia-restarting her Cymbalta now, on Elavil. Adding gabapentin at night to lessen reliance on narcotics. Cont [place] 10/325 PRN and Zanaflex PRN 5. h/o contrast allergy 6. h/o PE and DVT: on Eliquis 2.5mg BID 7. Leukocytosis related to steroid use. FULL CODE DVT PROPHYLAXIS : on Eliquis DISPOSITION : cont tele monitoring. Likely to home in next 1-2 days. PT/OT evals pending. Ifeoma Green DO [facility] Hospitalist. Consultants: [facility] Current Inpatient Medications: Current Inpatient Medications Medications (Trade) Dose Ordered Sig/Yessy Route Start Time Stop Time Status Last Admin Dose Admin Al Hydrox/Mg Hydrox/Simethicone (Maalox Max Susp) 15 ml Q4H PRN PO 05/31/17 13:30 06/30/17 13:29 06/02/17 13:55 15 ML Magnesium Hydroxide (Milk Of Magnesia Susp) 30 ml Q12H PRN PO 05/31/17 13:30 06/30/17 13:29 Ondansetron HCl (Zofran Inj) 4 mg Q6H PRN IV 05/31/17 13:30 06/30/17 13:29 06/01/17 12:38 4 MG Morphine Sulfate (MoRPHine SULFATE INJ) 2 mg Q30M PRN IV 05/31/17 13:30 06/14/17 13:29 06/01/17 12:39 2 MG Aspirin (Ecotrin Tab) 81 mg QAM PO 06/01/17 09:00 07/01/17 08:59 06/03/17 08:58 81 MG Polyethylene (Miralax Powder Packet) 17 gm DAILY PRN PO 05/31/17 13:30 06/30/17 13:29 Miscellaneous (Iv Fluids Completed) 1 ea PRN PRN N/A 05/31/17 13:45 05/31/18 13:44 Cholecalciferol (Vitamin D Tab) 1,000 inter.unit DAILY PO 06/01/17 09:00 07/01/17 08:59 06/03/17 09:01 1,000 INTER.UNIT Folic Acid (Folvite Tab) 1 mg DAILY PO 06/01/17 09:00 07/01/17 08:59 06/03/17 08:58 1 MG Acetaminophen/ Hydrocodone Bitart ([place] 10/325 Tab) 1 tab Q6H PRN PO 05/31/17 13:45 06/14/17 13:44 06/03/17 11:34 1 TAB Loratadine (Claritin Tab) 10 mg DAILY PRN PO 05/31/17 13:45 06/30/17 13:44 Lorazepam (Ativan Tab) 0.5 mg TID PRN PO 05/31/17 13:45 06/30/17 13:44 06/03/17 13:48 0.5 MG Potassium Chloride (Klor-Con M10) 10 meq DAILY PO 06/01/17 09:00 07/01/17 08:59 06/03/17 08:58 10 MEQ Simvastatin (Zocor Tab) 20 mg QPM PO 05/31/17 21:00 06/30/17 20:59 06/02/17 20:35 20 MG Tizanidine HCl (Zanaflex Tab) 4 mg Q6H PRN PO 05/31/17 14:00 06/30/17 13:59 06/02/17 22:26 4 MG Cyanocobalamin (Vitamin B-12 Tab) 1,000 mcg DAILY PO 06/01/17 09:00 07/01/17 08:59 06/03/17 09:00 1,000 MCG Nitroglycerin (Nitroglycerin 2% Oint) 1 inch Q6H EXT 05/31/17 14:30 06/30/17 14:29 06/03/17 09:03 1 INCH Fluticasone Propionate (Flonase Nasal [place]) 2 sprays DAILY NA 06/01/17 09:00 07/01/17 08:59 06/03/17 08:57 2 SPRAYS Albuterol (Ventolin Hfa Inhaler) 2 puffs Q4 PRN INH 05/31/17 14:45 06/30/17 14:44 Miscellaneous (Iv Fluids Completed) 1 ea PRN PRN N/A 05/31/17 15:45 05/31/18 15:44 Nitroglycerin (Nitrostat Tab) 0.4 mg Q5M PRN SL 06/01/17 12:00 07/01/17 11:59 Acetaminophen (Tylenol Tab) 650 mg Q4H PRN PO 06/01/17 12:00 07/01/17 11:59 06/03/17 09:15 650 MG Ioversol (Optiray 320) 100 ml UD PRN IV 06/01/17 14:45 06/05/17 14:44 Pantoprazole Sodium (Protonix Tab) 40 mg BID PO 06/01/17 21:00 07/01/17 08:59 06/03/17 08:59 40 MG Methylprednisolone Sodium Succinate 60 mg/Syringe 0.96 ml @ 1.5 mls/min Q6 IV 06/02/17 00:00 07/02/17 00:00 06/03/17 11:35 1.5 MLS/MIN Fluticasone/ Vilanterol (Breo Ellipta 100-25 Mcg/Inh) 1 puffs DAILY INH 06/02/17 09:00 07/02/17 08:59 06/03/17 08:57 1 PUFFS Doxycycline Hyclate (Vibramycin Cap) 100 mg BID PO 06/02/17 09:00 06/09/17 08:59 06/03/17 09:00 100 MG Apixaban (Eliquis Tab) 2.5 mg BID PO 06/02/17 21:00 07/02/17 20:59 06/03/17 08:58 2.5 MG Amitriptyline HCl (Elavil Tab) 75 mg HS PO 06/02/17 21:45 07/02/17 21:44 06/02/17 22:27 75 MG Nicardipine HCl 25 mg/Sodium Chloride 250 ml @ 50 mls/hr Q5H PRN IV 06/03/17 00:15 07/01/17 17:28 Levothyroxine Sodium (Synthroid Tab) 112 mcg DAILYBB PO 06/04/17 06:00 07/04/17 05:59 Metoprolol Succinate (Toprol Xl Tab) 100 mg BID PO 06/03/17 14:00 06/30/17 20:59 06/03/17 10:03 50 MG
[2017-06-03] MEDS ORDERED: METHOTREXATE 2.5 MG TAB PO SCH (16:00)
--- NOTE | 2017-06-03 20:49 | Pulmonology Progress Note ---
Pulmonary Progress Note Date of Service Jun 03, 2017. Attending Dr. Shepherd Subjective The patient improved dramatically, she does not have any shortness of breath, she was #30 without oxygen. She did not have any chest pain. On her symptoms has resolved. Objective Physical exam on 06/03/2017, the patient is alert and oriented, vital signs are stable, no fever, blood pressure slightly elevated but well controlled with pills, off dopamine, S1-S2 regular rate and rhythm, distant breath sounds bilaterally, abdomen is obese but benign, trace edema in the periphery. Assessment & Plan #1 sarcoidosis cardiac myopathy. Responding to high doses of beta blockers. #2 pulmonary sarcoidosis as well. #3 diabetes. #4 hypertension, with hypertensive crisis that was resolved. #5 history of venal thromboembolic event, on Eliquis suppressive therapy. Plan: #1 continue with Solu-Medrol and decrease it to twice daily 60 mg. #2 I will change the patient to prednisone 60 mg by mouth daily in the morning. #3 that are notables in terms of tapering the steroids in patients with sarcoidosis who over the course should be much longer than average treatment for obstructive lung disease. I would use [place] Bejarano protocol using 60 mg of prednisone for 1 weeks then 40 mg for 2 weeks then 20 mg for one week then 10 mg ongoing until seen by her architectural representative. Keep in mind, sarcoidosis cardiomyopathy cavitary labs very quickly with steroids taper. #4 continue Eliquis lifetime, patient at risk for recurrent PE due to her history of cardiac sarcoidosis. #5 continue bronchodilators. #6 physical therapy. #7 oral intake. #8 discontinue central line. #[address] Green. Appreciate her input. #10 transfer to regular floor. #11 change Toprol to XL 100 mg twice a day. #[address] Murry. Appreciate his input. Thank you, will follow. Data Medications: Current Inpatient Medications Medications (Trade) Dose Ordered Sig/Yessy Route Start Time Stop Time Status Last Admin Dose Admin Al Hydrox/Mg Hydrox/Simethicone (Maalox Max Susp) 15 ml Q4H PRN PO 05/31/17 13:30 06/30/17 13:29 06/02/17 13:55 15 ML Magnesium Hydroxide (Milk Of Magnesia Susp) 30 ml Q12H PRN PO 05/31/17 13:30 06/30/17 13:29 Ondansetron HCl (Zofran Inj) 4 mg Q6H PRN IV 05/31/17 13:30 06/30/17 13:29 06/01/17 12:38 4 MG Morphine Sulfate (MoRPHine SULFATE INJ) 2 mg Q30M PRN IV 05/31/17 13:30 06/14/17 13:29 06/01/17 12:39 2 MG Aspirin (Ecotrin Tab) 81 mg QAM PO 06/01/17 09:00 07/01/17 08:59 06/03/17 08:58 81 MG Polyethylene (Miralax Powder Packet) 17 gm DAILY PRN PO 05/31/17 13:30 06/30/17 13:29 Miscellaneous (Iv Fluids Completed) 1 ea PRN PRN N/A 05/31/17 13:45 05/31/18 13:44 Cholecalciferol (Vitamin D Tab) 1,000 inter.unit DAILY PO 06/01/17 09:00 07/01/17 08:59 06/03/17 09:01 1,000 INTER.UNIT Folic Acid (Folvite Tab) 1 mg DAILY PO 06/01/17 09:00 07/01/17 08:59 06/03/17 08:58 1 MG Acetaminophen/ Hydrocodone Bitart ([place] 10/325 Tab) 1 tab Q6H PRN PO 05/31/17 13:45 06/14/17 13:44 06/03/17 11:34 1 TAB Loratadine (Claritin Tab) 10 mg DAILY PRN PO 05/31/17 13:45 06/30/17 13:44 Lorazepam (Ativan Tab) 0.5 mg TID PRN PO 05/31/17 13:45 06/30/17 13:44 06/03/17 13:48 0.5 MG Potassium Chloride (Klor-Con M10) 10 meq DAILY PO 06/01/17 09:00 07/01/17 08:59 06/03/17 08:58 10 MEQ Simvastatin (Zocor Tab) 20 mg QPM PO 05/31/17 21:00 06/30/17 20:59 06/02/17 20:35 20 MG Tizanidine HCl (Zanaflex Tab) 4 mg Q6H PRN PO 05/31/17 14:00 06/30/17 13:59 2/24/18 16:43 4 MG Cyanocobalamin (Vitamin B-12 Tab) 1,000 mcg DAILY PO 06/01/17 09:00 07/01/17 08:59 06/03/17 09:00 1,000 MCG Fluticasone Propionate (Flonase Nasal [place]) 2 sprays DAILY NA 06/01/17 09:00 07/01/17 08:59 06/03/17 08:57 2 SPRAYS Albuterol (Ventolin Hfa Inhaler) 2 puffs Q4 PRN INH 05/31/17 14:45 06/30/17 14:44 Miscellaneous (Iv Fluids Completed) 1 ea PRN PRN N/A 05/31/17 15:45 05/31/18 15:44 Nitroglycerin (Nitrostat Tab) 0.4 mg Q5M PRN SL 06/01/17 12:00 07/01/17 11:59 Acetaminophen (Tylenol Tab) 650 mg Q4H PRN PO 06/01/17 12:00 07/01/17 11:59 06/03/17 09:15 650 MG Ioversol (Optiray 320) 100 ml UD PRN IV 06/01/17 14:45 06/05/17 14:44 Pantoprazole Sodium (Protonix Tab) 40 mg BID PO 06/01/17 21:00 07/01/17 08:59 06/03/17 08:59 40 MG Fluticasone/ Vilanterol (Breo Ellipta 100-25 Mcg/Inh) 1 puffs DAILY INH 06/02/17 09:00 07/02/17 08:59 06/03/17 08:57 1 PUFFS Doxycycline Hyclate (Vibramycin Cap) 100 mg BID PO 06/02/17 09:00 06/09/17 08:59 06/03/17 09:00 100 MG Apixaban (Eliquis Tab) 2.5 mg BID PO 06/02/17 21:00 07/02/17 20:59 06/03/17 08:58 2.5 MG Amitriptyline HCl (Elavil Tab) 75 mg HS PO 06/02/17 21:45 07/02/17 21:44 06/02/17 22:27 75 MG Nicardipine HCl 25 mg/Sodium Chloride 250 ml @ 50 mls/hr Q5H PRN IV 06/03/17 00:15 07/01/17 17:28 Levothyroxine Sodium (Synthroid Tab) 112 mcg DAILYBB PO 06/04/17 06:00 07/04/17 05:59 Metoprolol Succinate (Toprol Xl Tab) 100 mg BID PO 06/03/17 14:00 06/30/17 20:59 06/03/17 10:03 50 MG Methylprednisolone Sodium Succinate 60 mg/Syringe 0.96 ml @ 1.5 mls/min Q12H IV 06/04/17 00:00 07/04/17 00:00 Methotrexate (Methotrexate Tab) 20 mg TODAY@1600 PO 06/03/17 16:00 06/03/17 23:59 06/03/17 16:16 20 MG Gabapentin (Neurontin Cap) 300 mg HS PO 06/03/17 21:00 07/03/17 20:59 Duloxetine HCl (Cymbalta Cap) 60 mg QAM PO 06/04/17 09:00 07/04/17 08:59 I & O: 24-Hour Column 06/04/17 07:59 Intake Total 375 ml Output Total 650 ml Balance -275 ml Vital Signs: Date Time Temp Pulse Resp B/P (MAP) Pulse Ox O2 Delivery O2 Flow Rate FiO2 06/03/17 19:03 36.6 88 18 124/68 (86) 92 Room Air 06/03/17 16:00 Room Air 06/03/17 15:18 36.7 75 20 142/84 (103) 97 Room Air 06/03/17 13:40 36.5 89 16 94 06/03/17 13:00 36.5 89 16 153/93 (113) Room Air 06/03/17 12:50 90 95 06/03/17 12:00 94 Room Air 06/03/17 11:30 90 19 162/92 (115) 95 Room Air 06/03/17 10:31 84 15 145/86 (105) 95 Room Air 06/03/17 10:00 96 22 155/82 (106) 94 Room Air 06/03/17 08:00 86 17 148/82 (104) 92 Room Air 06/03/17 08:00 94 Room Air 06/03/17 06:31 71 13 127/68 (84) 98 06/03/17 06:01 70 12 128/76 (100) 97 06/03/17 05:31 70 11 136/81 (94) 97 06/03/17 05:01 77 18 133/73 (90) 92 06/03/17 04:31 66 18 117/63 (76) 97 06/03/17 04:01 70 18 112/62 (84) 95 06/03/17 04:00 36.7 06/03/17 04:00 96 Nasal Cannula 2.0 06/03/17 03:31 69 14 111/65 (74) 97 06/03/17 03:01 68 12 106/61 (78) 96 06/03/17 02:31 68 12 116/62 (76) 96 06/03/17 02:01 73 16 104/54 (65) 95 06/03/17 01:31 74 16 107/58 (73) 96 06/03/17 01:01 76 16 118/56 (74) 96 06/03/17 00:31 77 14 130/63 (81) 96 06/03/17 00:01 79 13 117/61 (74) 96 06/02/17 23:59 36.7 06/02/17 23:59 96 Nasal Cannula 2.0 06/02/17 23:31 83 14 133/72 (84) 92 06/02/17 23:01 78 19 138/70 (88) 91 06/02/17 23:00 82 17 91 06/02/17 22:01 80 14 116/68 (77) 95 06/02/17 21:31 80 15 121/64 (80) 95 06/02/17 21:01 82 14 109/75 (96) 94 Laboratory Results: Last 24 Hours Test 06/03/17 05:32 06/03/17 05:37 06/03/17 10:56 06/03/17 11:33 Sodium Level 141 mmol/L Potassium Level 3.9 mmol/L Chloride Level 108 mmol/L Carbon Dioxide Level 27 mmol/L Anion Gap 6.0 mmol/L Blood Urea Nitrogen 19 mg/dl Creatinine 0.87 mg/dl Est Creatinine Clear Calc Drug Dose 78.5 ml/min Estimated GFR () 84.5 Estimated GFR (Non- 72.9 BUN/Creatinine Ratio 22.2 Random Glucose 144 mg/dl Calcium Level 8.6 mg/dl Magnesium Level 2.6 mg/dl Bedside Glucose 143 mg/dl 173 mg/dl Troponin I 24.700 ng/ml
[2017-06-03] MEDS: GABAPENTIN 300 MG CAP PO SCH (20:52)
[2017-06-03] MEDS: AMITRIPTYLINE HCL 50 MG TAB PO SCH (21:19)
[2017-06-03] MEDS: SIMVASTATIN 20 MG TAB PO SCH (21:19)
[2017-06-04 03:10] VITALS: BP 120/76; PULSE 71; TEMP 36.3; O2SAT 95
[2017-06-04 06:08] LABS: CALCIUM 8.6 mg/dl (8.5-10.1); CREATININE 0.81 mg/dl (0.60-1.20); POTASSIUM 3.9 mmol/L (3.5-5.1)
[2017-06-04] MEDS: LEVOTHYROXINE 112 MCG TAB PO SCH (06:23)
[2017-06-04 07:00] VITALS: BP 128/79; PULSE 74; TEMP 36.3; O2SAT 91
[2017-06-04] MEDS: APIXABAN 2.5 MG TAB PO SCH ×2 (07:55→21:37)
[2017-06-04] MEDS: METOPROLOL SUCC 50MG EXT REL TAB PO SCH ×2 (07:55→21:36)
[2017-06-04] MEDS: DOXYCYCLINE HYCLATE 100 MG CAP PO SCH ×2 (07:56→21:37)
[2017-06-04] MEDS: FLUTICASONE FUROATE-VILANTEROL 30 PUFFS/INHALER INH INH SCH (07:56)
[2017-06-04] MEDS: DULOXETINE HCL 60 MG CAP PO SCH (07:56)
[2017-06-04] MEDS: FLUTICASONE PROPIONATE NA SPR 16 GM BTL SCH (07:56)
[2017-06-04] MEDS: ASPIRIN 81 MG ECTAB PO SCH (09:01)
[2017-06-04] MEDS: CYANOCOBALAMIN 500 MCG TAB (VIT B-12) PO SCH (09:01)
[2017-06-04] MEDS: CHOLECALCIFEROL 1000 INTER.UNIT TAB PO SCH (09:02)
[2017-06-04] MEDS: POTASSIUM CHLORIDE 10 MEQ TABCR PO SCH (09:02)
[2017-06-04] MEDS: PANTOprazole SOD 40 MG TAB PO SCH ×2 (09:02→21:38)
[2017-06-04] MEDS: METHYLPREDNISOLONE IV 60 MG in SYRINGE 0 ML IV SCH (11:45)
--- NOTE | 2017-06-04 11:49 | Pulmonology Progress Note ---
Pulmonary Progress Note Date of Service Jun 04, 2017. Attending Dr. Shepherd Subjective The patient denies any shortness of breath, she was able to ambulate, she does not know if she can do the stairs, did not have any chest pain, no other discomfort. She was ambulatory with the physical therapy yesterday. Objective Physical exam on 06/03/2017, the patient is alert and oriented, vital signs are stable, no fever, blood pressure slightly elevated but well controlled with pills, off dopamine, S1-S2 regular rate and rhythm, distant breath sounds bilaterally, abdomen is obese but benign, trace edema in the periphery. Physical exam on 06/04/2017, the patient has been stable hemodynamically, alert and oriented, minimal facial erythema from steroids use, heart examination S1 and S2 no systolic ejection murmur, distant breath sounds bilaterally, abdomen is benign, no edema in the periphery. Her labs also were reviewed and appeared within acceptable limits. No new imaging. Assessment & Plan #1 sarcoidosis cardiac myopathy. Responding to high doses of beta blockers. #2 pulmonary sarcoidosis as well. #3 diabetes. #4 hypertension, with hypertensive crisis that was resolved. #5 history of venal thromboembolic event, on Eliquis suppressive therapy. Plan: #1 change Solu-Medrol to prednisone starting today. #2 I will change the patient to prednisone 40 mg by mouth daily in the morning. Although I was planning to start with 60 mg but her preference to shorten the course of steroids and which I elected to start 40 mg. #3 that are notables in terms of tapering the steroids in patients with sarcoidosis who over the course should be much longer than average treatment for obstructive lung disease. I would use [place] Bejarano protocol, prednisone 40 mg daily for 2 weeks t then 20 mg for 2 week then 10 mg ongoing until seen by her barrel endshake adjuster. Keep in mind, sarcoidosis cardiomyopathy can exacerbate very quickly with steroids taper. #4 continue Eliquis lifetime, patient at risk for recurrent PE due to her history of cardiac sarcoidosis. #5 continue bronchodilators. #6 physical therapy. #7 oral intake. #8 continue with Toprol-XL 100 mg by mouth twice a day. #[address] Green anticipate she'll be going home in a.m. Thank you for your kind referral, will follow as needed. Data Medications: Current Inpatient Medications Medications (Trade) Dose Ordered Sig/Yessy Route Start Time Stop Time Status Last Admin Dose Admin Al Hydrox/Mg Hydrox/Simethicone (Maalox Max Susp) 15 ml Q4H PRN PO 05/31/17 13:30 06/30/17 13:29 06/02/17 13:55 15 ML Magnesium Hydroxide (Milk Of Magnesia Susp) 30 ml Q12H PRN PO 05/31/17 13:30 06/30/17 13:29 Ondansetron HCl (Zofran Inj) 4 mg Q6H PRN IV 05/31/17 13:30 06/30/17 13:29 06/01/17 12:38 4 MG Morphine Sulfate (MoRPHine SULFATE INJ) 2 mg Q30M PRN IV 05/31/17 13:30 06/14/17 13:29 06/01/17 12:39 2 MG Aspirin (Ecotrin Tab) 81 mg QAM PO 06/01/17 09:00 07/01/17 08:59 06/04/17 09:01 81 MG Polyethylene (Miralax Powder Packet) 17 gm DAILY PRN PO 05/31/17 13:30 06/30/17 13:29 Miscellaneous (Iv Fluids Completed) 1 ea PRN PRN N/A 05/31/17 13:45 05/31/18 13:44 Cholecalciferol (Vitamin D Tab) 1,000 inter.unit DAILY PO 06/01/17 09:00 07/01/17 08:59 06/04/17 09:02 1,000 INTER.UNIT Folic Acid (Folvite Tab) 1 mg DAILY PO 06/01/17 09:00 07/01/17 08:59 06/04/17 09:02 1 MG Acetaminophen/ Hydrocodone Bitart ([place] 10/325 Tab) 1 tab Q6H PRN PO 05/31/17 13:45 06/14/17 13:44 06/03/17 11:34 1 TAB Loratadine (Claritin Tab) 10 mg DAILY PRN PO 05/31/17 13:45 06/30/17 13:44 Lorazepam (Ativan Tab) 0.5 mg TID PRN PO 05/31/17 13:45 06/30/17 13:44 06/03/17 22:01 0.5 MG Potassium Chloride (Klor-Con M10) 10 meq DAILY PO 06/01/17 09:00 3/24/18 08:59 06/04/17 09:02 10 MEQ Simvastatin (Zocor Tab) 20 mg QPM PO 05/31/17 21:00 06/30/17 20:59 06/03/17 21:19 20 MG Tizanidine HCl (Zanaflex Tab) 4 mg Q6H PRN PO 05/31/17 14:00 06/30/17 13:59 06/03/17 16:43 4 MG Cyanocobalamin (Vitamin B-12 Tab) 1,000 mcg DAILY PO 06/01/17 09:00 07/01/17 08:59 06/04/17 09:01 1,000 MCG Fluticasone Propionate (Flonase Nasal [place]) 2 sprays DAILY NA 06/01/17 09:00 07/01/17 08:59 06/04/17 07:56 2 SPRAYS Albuterol (Ventolin Hfa Inhaler) 2 puffs Q4 PRN INH 05/31/17 14:45 06/30/17 14:44 Miscellaneous (Iv Fluids Completed) 1 ea PRN PRN N/A 05/31/17 15:45 05/31/18 15:44 Nitroglycerin (Nitrostat Tab) 0.4 mg Q5M PRN SL 06/01/17 12:00 07/01/17 11:59 Acetaminophen (Tylenol Tab) 650 mg Q4H PRN PO 06/01/17 12:00 07/01/17 11:59 06/03/17 09:15 650 MG Ioversol (Optiray 320) 100 ml UD PRN IV 06/01/17 14:45 06/05/17 14:44 Pantoprazole Sodium (Protonix Tab) 40 mg BID PO 06/01/17 21:00 07/01/17 08:59 06/04/17 09:02 40 MG Fluticasone/ Vilanterol (Breo Ellipta 100-25 Mcg/Inh) 1 puffs DAILY INH 06/02/17 09:00 07/02/17 08:59 06/04/17 07:56 1 PUFFS Doxycycline Hyclate (Vibramycin Cap) 100 mg BID PO 06/02/17 09:00 06/09/17 08:59 06/04/17 07:56 100 MG Apixaban (Eliquis Tab) 2.5 mg BID PO 06/02/17 21:00 07/02/17 20:59 06/04/17 07:55 2.5 MG Amitriptyline HCl (Elavil Tab) 75 mg HS PO 06/02/17 21:45 07/02/17 21:44 06/03/17 21:19 75 MG Nicardipine HCl 25 mg/Sodium Chloride 250 ml @ 50 mls/hr Q5H PRN IV 06/03/17 00:15 07/01/17 17:28 Levothyroxine Sodium (Synthroid Tab) 112 mcg DAILYBB PO 06/04/17 06:00 07/04/17 05:59 06/04/17 06:23 112 MCG Metoprolol Succinate (Toprol Xl Tab) 100 mg BID PO 06/03/17 14:00 06/30/17 20:59 06/04/17 07:55 100 MG Methylprednisolone Sodium Succinate 60 mg/Syringe 0.96 ml @ 1.5 mls/min Q12H IV 06/04/17 00:00 07/04/17 00:00 06/03/17 23:47 1.5 MLS/MIN Gabapentin (Neurontin Cap) 300 mg HS PO 06/03/17 21:00 07/03/17 20:59 06/03/17 20:52 300 MG Duloxetine HCl (Cymbalta Cap) 60 mg QAM PO 06/04/17 09:00 07/04/17 08:59 06/04/17 07:56 60 MG Vital Signs: Date Time Temp Pulse Resp B/P (MAP) Pulse Ox O2 Delivery O2 Flow Rate FiO2 06/04/17 08:00 Room Air 06/04/17 07:00 36.3 74 20 128/79 (95) 91 Room Air 06/04/17 04:00 Room Air 06/04/17 03:10 36.3 71 22 120/76 (91) 95 Room Air 06/04/17 00:02 Room Air 06/03/17 23:35 36.9 78 17 132/78 (96) 93 Room Air 06/03/17 20:00 Room Air 06/03/17 19:03 36.6 88 18 124/68 (86) 92 Room Air 06/03/17 16:00 Room Air 06/03/17 15:18 36.7 75 20 142/84 (103) 97 Room Air 06/03/17 13:40 36.5 89 16 94 06/03/17 13:00 36.5 89 16 153/93 (113) Room Air 06/03/17 12:50 90 95 06/03/17 12:00 94 Room Air Laboratory Results: Last 24 Hours Test 06/04/17 05:24 Sodium Level 141 mmol/L Potassium Level 3.9 mmol/L Chloride Level 109 mmol/L Carbon Dioxide Level 25 mmol/L Anion Gap 7.0 mmol/L Blood Urea Nitrogen 21 mg/dl Creatinine 0.81 mg/dl Est Creatinine Clear Calc Drug Dose 84.3 ml/min Estimated GFR () 92.1 Estimated GFR (Non- 79.5 BUN/Creatinine Ratio 26.0 Random Glucose 129 mg/dl Calcium Level 8.6 mg/dl Magnesium Level 2.7 mg/dl
--- NOTE | 2017-06-04 11:53 | Progress Note ---
Medicine Progress Note Date & Time of Visit: Jun 04, 2017 at 11:47. Subjective 57 yo female with cardiac sarcoidosis and stress-induced cardiomyopathy presented initially with chest pain, underwent cardiac catheterization which was clear. This was complicated by a hypertensive crisis thought to be related to catecholamine surge and possibly contrast reaction in setting of cardiac sarcoid with possible flare. She was placed into the ICU and put on a nicardipine drip with improvement in breathing, hypoxia and BP. The Cardene drip was stopped on 06/03 in the morning, and she has no more hypoxia, off supplemental oxygen and is doing well from a symptom standpoint. She only reports her fibromyalgia pain and some upper back pain which is bothering her consistently. Cymbalta was restarted yesterday and she was also placed on gabapentin in addition to her Elavil 75, Zanaflex PRN and [place] PRN, however, she still has pain and discomfort. Tolerating PO, no chest pain. Objective Last 8 Hrs Date Time Temp Pulse Resp B/P (MAP) Pulse Ox O2 Delivery O2 Flow Rate FiO2 06/04/17 08:00 Room Air 06/04/17 07:00 36.3 74 20 128/79 (95) 91 Room Air 06/04/17 04:00 Room Air Physical Exam: GEN:obese ,no acute distress, alert and appropriate HEENT: NC/AT, normal sclerae, MMM CARDIO: reg rate, S1/2 heard without m/g/r, 2+ peripheral pulses and extremities are warm and well-perfused. LUNGS: CTA bilaterally, no crackles, rales or wheezes, good diaphragmatic excursion ABD: soft, non-tender, non-distended, no rebound or guarding EXTREMITY: RP and DP palpable 2+ bilat, no LE swelling or edema, extremities are warm and well-perfused NEURO: CN 2-12 grossly intact, no gross focal deficits. MUSC: moving all extremities equally. SKIN: warm and dry Laboratory Results: 06/02/17 05:22 Red Blood Count 4.78, Mean Corpuscular Volume 93.1, Mean Corpuscular Hemoglobin 31.6, Mean Corpuscular Hemoglobin Concent 33.9, Mean Platelet Volume 9.4, Neutrophils (%) (Auto) 92.9, Lymphocytes (%) (Auto) 4.7, Monocytes (%) (Auto) 2.1, Eosinophils (%) (Auto) 0.0, Basophils (%) (Auto) 0.0, Neutrophils # (Auto) 15.17, Lymphocytes # (Auto) 0.76, Monocytes # (Auto) 0.35, Eosinophils # (Auto) 0.00, Basophils # (Auto) 0.00 06/04/17 05:24 Test 05/31/17 11:30 05/31/17 22:15 06/01/17 07:47 06/01/17 15:39 Prothrombin Time 10.0 SECONDS (9.0-12.0) Prothromb Time International Ratio 1.0 (0.9-1.1) Activated Partial Thromboplast Time 28.9 SECONDS (21.0-31.0) Partial Thromboplastin Ratio 1.1 Total Bilirubin 0.3 mg/dl (0.2-1) Aspartate Amino Transf (AST/SGOT) 20 U/L (15-37) Alanine Aminotransferase (ALT/SGPT) 35 U/L (12-78) Alkaline Phosphatase 121 U/L (45-117) Total Protein 7.0 gm/dl (6.4-8.2) Albumin 3.3 gm/dl (3.4-5.0) Globulin 3.7 gm/dl (2.5-4.0) Albumin/Globulin Ratio 0.9 (0.9-2) Thyroid Stimulating Hormone (TSH) 1.110 uIu/ml (0.300-4.500) Urine Color YELLOW Urine Appearance CLEAR (CLEAR) Urine pH 7.0 (4.5-7.5) Urine Specific [place] <= 1.005 (1.000-1.030) Urine Protein NEG (NEG) Urine Glucose (UA) NEG (NEG) Urine Ketones NEG (NEG) Urine Occult Blood 1+ (NEG) Urine Nitrite NEG (NEG) Urine Bilirubin NEG (NEG) Urine Urobilinogen NEG (NEG) Urine Leukocyte Esterase NEG (NEG) Urine RBC 0-4 /hpf (0-4) Urine WBC 0 /hpf (0-5) Urine Epithelial Cells >30 /lpf (0-5) Urine Bacteria NEG (NEG) Urine Hyaline Casts 0 /lpf (0-5) Triglycerides Level 58 mg/dl (0-150) Cholesterol Level 159 mg/dl (0-200) HDL Cholesterol 57 mg/dl LDL Cholesterol, Calculated 90 mg/dl VLDL Cholesterol, Calculated 12 mg/dl Cholesterol/HDL Ratio 2.8 Procalcitonin < 0.05 ng/ml (0-0.5) Test 06/01/17 17:49 06/02/17 05:22 06/03/17 10:56 06/03/17 11:33 Venous Blood pH 7.29 (7.36-7.41) Venous Blood Partial Pressure CO2 55 mmHg (38.0-50.0) Venous Blood Partial Pressure O2 43 mmHg Venous Blood HCO3 26 mmol/L Venous Blood Oxygen Saturation 72.2 % Venous Blood Base Excess -2.1 mEq/L White Blood Count 16.33 K/uL (4.8-10.8) Red Blood Count 4.78 M/uL (4.2-5.4) Hemoglobin 15.1 g/dL (12.0-16.0) Hematocrit 44.5 % (37-47) Mean Corpuscular Volume 93.1 fL (80-100) Mean Corpuscular Hemoglobin 31.6 pg (25-34) Mean Corpuscular Hemoglobin Concent 33.9 g/dl (32-36) Platelet Count 303 K/uL (130-400) Mean Platelet Volume 9.4 fL (7.4-10.4) Neutrophils (%) (Auto) 92.9 % Lymphocytes (%) (Auto) 4.7 % Monocytes (%) (Auto) 2.1 % Eosinophils (%) (Auto) 0.0 % Basophils (%) (Auto) 0.0 % Neutrophils # (Auto) 15.17 K/uL (1.4-6.5) Lymphocytes # (Auto) 0.76 K/uL (1.2-3.4) Monocytes # (Auto) 0.35 K/uL (0.11-0.59) Eosinophils # (Auto) 0.00 K/uL (0-0.5) Basophils # (Auto) 0.00 K/uL (0-0.2) RDW Standard Deviation 47.9 fL (36.4-46.3) RDW Coefficient of Variation 14.3 % (11.5-14.5) Immature Granulocyte % (Auto) 0.3 % Immature Granulocyte # (Auto) 0.05 K/uL (0.00-0.02) Phosphorus Level 2.8 mg/dl (2.5-4.9) Total Creatine Kinase 2651 U/L (26-192) Creatine Kinase MB 317.7 ng/ml (0.5-3.6) Creatine Kinase MB Ratio 12.0 (0-3.0) Pro-B-Type Natriuretic Peptide 2315 pg/ml (0-900) Troponin I 24.700 ng/ml (0-0.045) Bedside Glucose 173 mg/dl (70-90) Test 06/04/17 05:24 Anion Gap 7.0 mmol/L (3-11) Est Creatinine Clear Calc Drug Dose 84.3 ml/min Estimated GFR () 92.1 Estimated GFR (Non- 79.5 BUN/Creatinine Ratio 26.0 (10-20) Calcium Level 8.6 mg/dl (8.5-10.1) Magnesium Level 2.7 mg/dl (1.8-2.4) Last 24 Hours Test 06/04/17 05:24 Sodium Level 141 mmol/L Potassium Level 3.9 mmol/L Chloride Level 109 mmol/L Carbon Dioxide Level 25 mmol/L Anion Gap 7.0 mmol/L Blood Urea Nitrogen 21 mg/dl Creatinine 0.81 mg/dl Est Creatinine Clear Calc Drug Dose 84.3 ml/min Estimated GFR () 92.1 Estimated GFR (Non- 79.5 BUN/Creatinine Ratio 26.0 Random Glucose 129 mg/dl Calcium Level 8.6 mg/dl Magnesium Level 2.7 mg/dl Assessment & Plan 57 yo female with cardiac sarcoidosis and stress-induced cardiomyopathy presented initially with chest pain, underwent cardiac catheterization which was clear. This was complicated by a hypertensive crisis thought to be related to catecholamine surge and possibly contrast reaction in setting of cardiac sarcoid with possible flare. She was placed into the ICU and put on a nicardipine drip with improvement in breathing, hypoxia and BP. The Cardene drip was stopped on 06/03 in the morning, and she has no more hypoxia, off supplemental oxygen and is doing well from a symptom standpoint. She only reports her fibromyalgia pain and some upper back pain which is bothering her consistently. Cymbalta was restarted yesterday and she was also placed on gabapentin in addition to her Elavil 75, Zanaflex PRN and [place] PRN, however, she still has pain and discomfort. Tolerating PO, no chest pain. 1. Acute NICM-etiologies include but not limited to stress-induced cardiomyopathy, contrast allergy and cardiac sarcoid flare. Per repeat TTE, EF has improved from 25-45% in two days and she continues to do well clinically. No signs of heart failure or fluid overload at this time. Sarcoid flare requires a 6-8 week steroid taper. Cont MTX. Appreciate continued Cardiology management. 2. Cardiac sarcoid s/p ICD placement-found on Holter in 2013 revealing Mobitz Type II block. Cont management per #1 3. Hypertensive crisis-resolved, off nicardipine and nitro paste stopped. Cont Toprol. BP at goal. 4. Fibromyalgia-cont cymbalta, gabapentin, elavil, norco PRN and Zanaflex PRN 5. h/o contrast allergy 6. h/o PE and DVT: on Eliquis 2.5mg BID 7. Leukocytosis related to steroid use. FULL CODE DVT PROPHYLAXIS : on Eliquis DISPOSITION : cont tele monitoring. Likely to home in next 1-2 days. PT/OT evals pending. Ifeoma Green DO [facility] Hospitalist. Consultants: [facility] Current Inpatient Medications: Current Inpatient Medications Medications (Trade) Dose Ordered Sig/Yessy Route Start Time Stop Time Status Last Admin Dose Admin Al Hydrox/Mg Hydrox/Simethicone (Maalox Max Susp) 15 ml Q4H PRN PO 05/31/17 13:30 06/30/17 13:29 06/02/17 13:55 15 ML Magnesium Hydroxide (Milk Of Magnesia Susp) 30 ml Q12H PRN PO 05/31/17 13:30 06/30/17 13:29 Ondansetron HCl (Zofran Inj) 4 mg Q6H PRN IV 05/31/17 13:30 06/30/17 13:29 06/01/17 12:38 4 MG Morphine Sulfate (MoRPHine SULFATE INJ) 2 mg Q30M PRN IV 05/31/17 13:30 06/14/17 13:29 06/01/17 12:39 2 MG Aspirin (Ecotrin Tab) 81 mg QAM PO 06/01/17 09:00 07/01/17 08:59 06/04/17 09:01 81 MG Polyethylene (Miralax Powder Packet) 17 gm DAILY PRN PO 05/31/17 13:30 06/30/17 13:29 Miscellaneous (Iv Fluids Completed) 1 ea PRN PRN N/A 05/31/17 13:45 05/31/18 13:44 Cholecalciferol (Vitamin D Tab) 1,000 inter.unit DAILY PO 06/01/17 09:00 07/01/17 08:59 06/04/17 09:02 1,000 INTER.UNIT Folic Acid (Folvite Tab) 1 mg DAILY PO 06/01/17 09:00 07/01/17 08:59 06/04/17 09:02 1 MG Acetaminophen/ Hydrocodone Bitart ([place] 10/325 Tab) 1 tab Q6H PRN PO 05/31/17 13:45 06/14/17 13:44 06/03/17 11:34 1 TAB Loratadine (Claritin Tab) 10 mg DAILY PRN PO 05/31/17 13:45 06/30/17 13:44 Lorazepam (Ativan Tab) 0.5 mg TID PRN PO 05/31/17 13:45 06/30/17 13:44 06/03/17 22:01 0.5 MG Potassium Chloride (Klor-Con M10) 10 meq DAILY PO 06/01/17 09:00 07/01/17 08:59 06/04/17 09:02 10 MEQ Simvastatin (Zocor Tab) 20 mg QPM PO 05/31/17 21:00 06/30/17 20:59 06/03/17 21:19 20 MG Tizanidine HCl (Zanaflex Tab) 4 mg Q6H PRN PO 05/31/17 14:00 06/30/17 13:59 06/03/17 16:43 4 MG Cyanocobalamin (Vitamin B-12 Tab) 1,000 mcg DAILY PO 06/01/17 09:00 07/01/17 08:59 06/04/17 09:01 1,000 MCG Fluticasone Propionate (Flonase Nasal [place]) 2 sprays DAILY NA 06/01/17 09:00 07/01/17 08:59 06/04/17 07:56 2 SPRAYS Albuterol (Ventolin Hfa Inhaler) 2 puffs Q4 PRN INH 05/31/17 14:45 06/30/17 14:44 Miscellaneous (Iv Fluids Completed) 1 ea PRN PRN N/A 05/31/17 15:45 05/31/18 15:44 Nitroglycerin (Nitrostat Tab) 0.4 mg Q5M PRN SL 06/01/17 12:00 07/01/17 11:59 Acetaminophen (Tylenol Tab) 650 mg Q4H PRN PO 06/01/17 12:00 07/01/17 11:59 06/03/17 09:15 650 MG Ioversol (Optiray 320) 100 ml UD PRN IV 06/01/17 14:45 06/05/17 14:44 Pantoprazole Sodium (Protonix Tab) 40 mg BID PO 06/01/17 21:00 07/01/17 08:59 06/04/17 09:02 40 MG Fluticasone/ Vilanterol (Breo Ellipta 100-25 Mcg/Inh) 1 puffs DAILY INH 06/02/17 09:00 07/02/17 08:59 06/04/17 07:56 1 PUFFS Doxycycline Hyclate (Vibramycin Cap) 100 mg BID PO 06/02/17 09:00 06/09/17 08:59 06/04/17 07:56 100 MG Apixaban (Eliquis Tab) 2.5 mg BID PO 06/02/17 21:00 07/02/17 20:59 06/04/17 07:55 2.5 MG Amitriptyline HCl (Elavil Tab) 75 mg HS PO 06/02/17 21:45 07/02/17 21:44 06/03/17 21:19 75 MG Nicardipine HCl 25 mg/Sodium Chloride 250 ml @ 50 mls/hr Q5H PRN IV 06/03/17 00:15 07/01/17 17:28 Levothyroxine Sodium (Synthroid Tab) 112 mcg DAILYBB PO 06/04/17 06:00 07/04/17 05:59 06/04/17 06:23 112 MCG Metoprolol Succinate (Toprol Xl Tab) 100 mg BID PO 06/03/17 14:00 06/30/17 20:59 06/04/17 07:55 100 MG Gabapentin (Neurontin Cap) 300 mg HS PO 06/03/17 21:00 07/03/17 20:59 06/03/17 20:52 300 MG Duloxetine HCl (Cymbalta Cap) 60 mg QAM PO 06/04/17 09:00 07/04/17 08:59 06/04/17 07:56 60 MG Prednisone (PredniSONE TAB) 40 mg DAILY PO 06/05/17 09:00 07/05/17 08:59 UNV
[2017-06-04] MEDS: ALBUTEROL HFA 8 GM INHALER INH PRN ×2 (12:02→16:09)
[2017-06-04 12:45] VITALS: BP 154/86; PULSE 79; TEMP 36.6; O2SAT 95
--- NOTE | 2017-06-04 14:25 | Cardiology Follow-Up ---
Subjective General Date of Service: Jun 04, 2017. Chief Complaint: Follow-up chest pain, shortness of breath Pt evaluation today including: conversation w/ patient, physical exam History of Present Illness The patient is a 57 year old female seen in follow up. Pt now in PCU east, transferred from first floor ICU yesterday. Still feels SOB with exertion, but better than presentation. BP still above goal, but better. Allergies Coded Allergies: Lisinopril (Verified Allergy, Severe, ANAPHYLAXIS, 06/01/17) Lidocaine (Verified Allergy, Intermediate, ITCHY,RASH, 06/01/17) Penicillins (Verified Allergy, Intermediate, ITCHY,RASH, 06/01/17) Adhesives (Verified Allergy, Unknown, RASH, SKIN IRRATATION, 05/31/17) Iodinated Diagnostic Agents (Verified Allergy, Unknown, UNKNOWN, 05/31/17) Social History Smoking Status: Never Smoker Hx Tobacco Use In Past Year?: No Hx Alcohol Use - Type And Amou: Yes (occasionally) Hx Substance Use - Type And Am: No Problem List Medical Problems: (1) Precordial chest pain Status: Acute Physical Exam Vital Signs Last Vital Signs Documentation Date Time Temp Pulse Resp B/P (MAP) Pulse Ox O2 Delivery O2 Flow Rate FiO2 06/04/17 12:45 36.6 79 19 154/86 (108) 95 Room Air 06/03/17 04:00 2.0 Physical Exam Constitutional: Level of Distress: NAD, chronically ill Neck: supple Lungs: Auscultation: no wheezing, no rales/crackles, no rhonchi Cardiovascular: Heart Auscultation: RRR, no murmurs, no rubs Extremities: no edema Neurologic: Gait & Station: pertinent finding (No focal deficits) Assessment and Plan Assessment and Plan EKG this am, stable SR , LBBB\\ Impression: 57-year-old female with history of sarcoidosis with pulmonary and cardiac involvement 1. Presented with chest pain and shortness of breath, likely hypertensive mediated in the setting of significant diastolic dysfunction. Symptoms progressed, and troponin had increased to 66 NG per mL the morning of 06/02/17 and has trended down. Follow-up cardiac catheterization revealed normal coronaries, no evidence of aortic dissection. -Clinically improved after treatment of her hypertension -Repeat echocardiogram performed yesterday compatible with stress-induced cardiomyopathy with hyperdynamic basal segments and hypokinesis of the mid and apical levels of the left ventricle, mild LV systolic dysfunction with ejection fraction of the range of 40-45% on 2. Underlying conduction system disease, left bundle branch block, for which patient has dual-chamber [employer] pacemaker AICD 3. History of DVT/PE for which she is on Eliquis as an outpatient. Plan: The patient's leukocytosis is likely due to her corticosteroid exposure, in the setting of sarcoidosis and IV contrast prophylaxis. Continue metoprolol. Add torsemide 5 mg daily. Patient state she had "anaphylaxis" with lisinopril in the past. Will therefore avoid ACEI or ARB. The [facility] the [facility]. Her previous cardiac procedures had been performed at [facility]. After discharge she is interested in following up with our practice at [facility]. DVT prophylaxis: Eliquis Laboratory Results Last 24 Hours Test 06/04/17 05:24 Sodium Level 141 mmol/L Potassium Level 3.9 mmol/L Chloride Level 109 mmol/L Carbon Dioxide Level 25 mmol/L Anion Gap 7.0 mmol/L Blood Urea Nitrogen 21 mg/dl Creatinine 0.81 mg/dl Est Creatinine Clear Calc Drug Dose 84.3 ml/min Estimated GFR () 92.1 Estimated GFR (Non- 79.5 BUN/Creatinine Ratio 26.0 Random Glucose 129 mg/dl Calcium Level 8.6 mg/dl Magnesium Level 2.7 mg/dl
[2017-06-04] MEDS ORDERED: TORSEMIDE 20 MG TAB PO ONE (14:30)
[2017-06-04] MEDS: LORAZEPAM 0.5 MG TAB PO PRN (15:23)
[2017-06-04 15:31] VITALS: BP 138/83; PULSE 79; TEMP 36.4; O2SAT 94
[2017-06-04] MEDS: ACETAMINOPHEN 325 MG TAB PO PRN (18:12)
[2017-06-04 19:17] VITALS: BP 146/89; PULSE 85; TEMP 36.7; O2SAT 93
[2017-06-04] MEDS: SIMVASTATIN 20 MG TAB PO SCH (21:35)
[2017-06-04] MEDS: GABAPENTIN 300 MG CAP PO SCH (21:37)
[2017-06-04] MEDS: AMITRIPTYLINE HCL 50 MG TAB PO SCH (21:38)
[2017-06-04 22:57] VITALS: BP 124/85; PULSE 72; TEMP 36.6; O2SAT 96
[2017-06-05] MEDS: LORAZEPAM 0.5 MG TAB PO PRN (00:24)
[2017-06-05 03:19] VITALS: BP 118/74; PULSE 66; TEMP 36.7; O2SAT 94
[2017-06-05] MEDS: LEVOTHYROXINE 112 MCG TAB PO SCH (05:31)
[2017-06-05 05:53] LABS: HEMATOCRIT 38.9 % (37-47); HEMOGLOBIN 13.4 g/dL (12.0-16.0); MEAN CELL VOLUME 91.7 fL (80-100); MEAN CORPUSCULAR HEMOGLOBIN 31.6 pg (25-34); MEAN CORPUSCULAR HGB CONC 34.4 g/dl (32-36); MEAN PLATELET VOLUME 9.3 fL (7.4-10.4); PLATELET COUNT 237 K/uL (130-400); RED CELL DISTRIBUTION WIDTH CV 14.4 % (11.5-14.5); RED CELL DISTRIBUTION WIDTH SD 48.1 fL (36.4-46.3); WHITE BLOOD COUNT 13.51 K/uL (4.8-10.8)
[2017-06-05 06:28] LABS: CREATININE 0.88 mg/dl (0.60-1.20); POTASSIUM 3.4 mmol/L (3.5-5.1)
[2017-06-05 07:30] VITALS: BP 135/79; PULSE 71; TEMP 36.5; O2SAT 97
[2017-06-05] MEDS: ALBUTEROL HFA 8 GM INHALER INH PRN (07:54)
[2017-06-05] MEDS: FLUTICASONE FUROATE-VILANTEROL 30 PUFFS/INHALER INH INH SCH (07:56)
[2017-06-05] MEDS: CYANOCOBALAMIN 500 MCG TAB (VIT B-12) PO SCH (07:56)
[2017-06-05] MEDS: FLUTICASONE PROPIONATE NA SPR 16 GM BTL SCH (07:56)
[2017-06-05] MEDS: APIXABAN 2.5 MG TAB PO SCH (07:56)
[2017-06-05] MEDS: POTASSIUM CHLORIDE 10 MEQ TABCR PO SCH (07:56)
[2017-06-05] MEDS: ASPIRIN 81 MG ECTAB PO SCH (07:57)
[2017-06-05] MEDS: METOPROLOL SUCC 50MG EXT REL TAB PO SCH (07:57)
[2017-06-05] MEDS: PANTOprazole SOD 40 MG TAB PO SCH (07:58)
[2017-06-05] MEDS: CHOLECALCIFEROL 1000 INTER.UNIT TAB PO SCH (07:58)
[2017-06-05] MEDS: DULOXETINE HCL 60 MG CAP PO SCH (07:58)
[2017-06-05] MEDS: DOXYCYCLINE HYCLATE 100 MG CAP PO SCH (07:58)
[2017-06-05] MEDS ORDERED: TORSEMIDE 20 MG TAB PO SCH (09:00)
[2017-06-05] MEDS ORDERED: RAPID SEQUENCE INDUCTION BAG ONE (09:49)
[2017-06-05] MEDS ORDERED: AMIODARONE 360MG / 200ML D5W ONE (10:02)
--- NOTE | 2017-06-05 10:52 | Progress Note ---
Progress Note Date of Service Jun 05, 2017. Progress Note 57 yo female with cardiac sarcoidosis and stress-induced cardiomyopathy presented initially with chest pain, underwent cardiac catheterization which was clear. This was complicated by a hypertensive crisis thought to be related to catecholamine surge and possibly contrast reaction in setting of cardiac sarcoid with possible flare. She was placed into the ICU and put on a nicardipine drip with improvement in breathing, hypoxia and BP. The Cardene drip was stopped on 06/03 in the morning, and she had no more hypoxia not requiring supplemental oxygen and was doing well from a symptom standpoint. Cymbalta was restarted and she was also placed on gabapentin in addition to her Elavil 75, Zanaflex PRN and [place] PRN. Her EF was found to be decreased to 25% which improved to 45% the following day. She was placed on steroids from a presumed flare of her cardiac sarcoid. This morning she pulled her bathroom call [place] and when nursing staff responded, she was found face down on the bathroom floor in a pool of blood. She was turned over and was assessed with vitals intact and she was breathing on a NRB with good oxygen saturation, pulse intact, rhythm was sinus on the monitor. The ER was called for a c-collar after the traumatic fall and c-spine alignment was maintained until that arrived. She was placed on a backboard and moved to the bed. At that time she was found to be in PEA and CPR was started with epinephrine 1mg given. A few minutes later she responded and the Tile Sprayer, ER physician, and ICU team arrived at that time. An airway was established. She went back into PEA a few minutes later and CPR was restarted with multiple rounds of epi, bicarb given as well as an amio bolus with maintenance infusion and one shot of vasopressin. IVf were running and IO access was established. Multiple rounds of CPR were attempted and efforts were unsuccessful. There was no cardiac activity on the echo screen, verified by both the Tile Sprayer and ICU physicians. Pupils were fixed and dilated. No pulse was found. There were no heart or breath sounds able to be auscultated. She was not responsive to painful stimuli. Time of was 10:23. Family was contacted-son Morales. Ifeoma Green DO [facility] Hospitalist.
--- NOTE | 2017-06-05 12:20 | EMERGENCY ROOM VISIT NOTE ---
ED Visit Note First contact with patient: 12:19 Endotracheal Intubation Indication cardiac arrest. The patient was on 100% oxygen via NRB prior to the procedure. Suction, airway equipment, RSI drugs, respiratory equipment, and appropriate personnel were prepared prior to the initiation of the procedure. A time out was taken. Induction was performed with Succinylcholine. After observing the clinical benefit of the medications, the airway was easily visualized utilizing a Glidescope. A 7.5 size ETT tube was placed atraumatically to 25 cm using standard technique. The cuff inflated without signs of malfunction. There were bilateral breath sounds, positive colormetric change, no gastric sounds, a good capnography waveform, and post procedure pulse oximetry was 96%. There were no complications.
--- NOTE | 2017-06-05 14:26 | Discharge Summary ---
Discharge Summary Date of Service Jun 05, 2017. Discharge Summary Admission Date: Jun 01, 2017 at 21:30 Discharge Date: Jun 05, 2017 Discharge Disposition: Principal Diagnosis: Cardiac sarcoidosis with h/o ICD placement NICM poss 2/2 stress-induced cardiomyoapthy chronic LBBB Hypertensive crisis h/o contrast allergy fibromyalgia depression h/o PE nad DVT on Eliquis Procedures: Left heart catheterization Vaccinations: None. Consultations: [facility] Pending Studies/Follow-Up: see instructions below. Medication Reconciliation Discontinued Medications: Amitriptyline Hcl (Elavil) 75 Mg Tab 75 MG PO HS, TAB Apixaban (Eliquis) 2.5 Mg Tab 2.5 MG PO BID, TAB Biotin (Biotin 5000) 5 Mg Cap 1 CAP PO DAILY Cholecalciferol (Vitamin D3) 1,000 Unit Tab 1 TAB PO DAILY, TAB Cyanocobalamin (Vitamin B-12) 1,000 Mcg Tab 1000 MCG PO DAILY, TAB Duloxetine Hcl (Cymbalta) 60 Mg Cap 60 MG PO DAILY, CAP Fluticasone Furoate-Vilanterol (Breo Ellipta) 1 Inh Inh 1 PUFF INH DAILY Folic Acid (Folvite) 1 Mg Tab 1 MG PO DAILY, TAB Hydrocodone/Acetaminophen (Coy 10/325 Tab) 1 Tab Tab 1 TAB PO Q6H PRN for Pain, TAB Loratadine (Claritin) 10 Mg Tab 10 MG PO DAILY PRN for Allergic Reaction, TAB Lorazepam (Ativan) 1 Mg Tab 0.5-1 MG PO TID PRN for Anxiety, TAB Methotrexate (Methotrexate) 2.5 Mg Tab 8 TAB PO WK, TAB on every monday Metoprolol Succ (Toprol Xl) (Toprol-Xl ) 100 Mg Tabcr 50 MG PO BID, TAB Omeprazole (Prilosec) 40 Mg Cap 40 MG PO DAILY, CAP Potassium Chloride (Micro-K Ext Rel) 10 Meq Capcr 10 MEQ PO DAILY, CAP Simvastatin (Zocor) 20 Mg Tab 20 MG PO QPM, TAB Tizanidine (Zanaflex ) 4 Mg Tab 4 MG PO Q6H PRN for Muscle Spasms, TAB Admission Information HPI (per Admitting provider): this is 57 yo F with medical hx of Sarcoidosis with Cardiac involvement , HTN . Hyperlipidemia , Hx of PE on Eliquis , presented with ER with complain of angina symptom since 9 am today morning Pt was sitting on the couch -felt severe crushing chest pain /heaviness with radiation to left arm , denies of dizzy spell or palpitation , felt SOB took 1 SL nitro with no improvement of symptom , did repeat 2 more SL and Called [address] to ER -pt was given full strength aspirin and SL nitro in ER she was chest pain free , feels very tired and wiped out did not feel any AICD firing has been having progressive SOB , ISAAC in past 2 months , walking up stairs, vacuuming makes her out of breath , needs to take multiple break denies of any chest heaviness associated with activity Pt has hx of DVT /PE in past , on Eliquis took AM dose this morning pt was recently treated with Keflex for sinus congestion , developed diarrhea , which has resolved denies of any fever or chills, no cough /no flu like symptom Physical Exam (per Admitting): General Appearance: no apparent distress Head: normocephalic, atraumatic Eyes: normal inspection, PERRL, EOMI, sclerae normal ENT: normal ENT inspection Neck: thyroid normal, no JVD, no carotid bruits, trachea midline Respiratory/Chest: lungs clear, normal breath sounds, no respiratory distress Cardiovascular: regular rate, rhythm, no edema, no JVD, normal peripheral pulses Abdomen/GI: normal bowel sounds, non tender, soft Extremities/Musculoskelatal: normal inspection, no calf tenderness, normal capillary refill, no pedal edema Neurologic/Psych: no motor/sensory deficits, alert, oriented x 3 Skin: normal color, warm/dry, no rash Hospital Course 57 yo female with cardiac sarcoidosis and stress-induced cardiomyopathy presented initially with chest pain, underwent cardiac catheterization which was clear. This was complicated by a hypertensive crisis thought to be related to catecholamine surge and possibly contrast reaction in setting of cardiac sarcoid with possible flare. She was placed into the ICU and put on a nicardipine drip with improvement in breathing, hypoxia and BP. The Cardene drip was stopped on 06/03 in the morning, and she had no more hypoxia not requiring supplemental oxygen and was doing well from a symptom standpoint. Cymbalta was restarted and she was also placed on gabapentin in addition to her Elavil 75, Zanaflex PRN and Coy PRN. Her EF was found to be decreased to 25% which improved to 45% the following day. She was placed on steroids from a presumed flare of her cardiac sarcoid. This morning she pulled her bathroom call [place] and when nursing staff responded, she was found face down on the bathroom floor in a pool of blood. She was turned over and was assessed with vitals intact and she was breathing on a NRB with good oxygen saturation, pulse intact, rhythm was sinus on the monitor. The ER was called for a c-collar after the traumatic fall and c-spine alignment was maintained until that arrived. She was placed on a backboard and moved to the bed. At that time she was found to be in PEA and CPR was started with epinephrine 1mg given. A few minutes later she responded and the Cart Driver, ER physician, and ICU team arrived at that time. An airway was established. She went back into PEA a few minutes later and CPR was restarted with multiple rounds of epi, bicarb given as well as an amio bolus with maintenance infusion and one shot of vasopressin. IVf were running and IO access was established. Multiple rounds of CPR were attempted and efforts were unsuccessful. There was no cardiac activity on the echo screen, verified by both the Cart Driver and ICU physicians. Pupils were fixed and dilated. No pulse was found. There were no heart or breath sounds able to be auscultated. She was not responsive to painful stimuli. Time of was 10:23. Family was contacted-velia Nielsen. Total time spent on discharge = 60 minutes This includes examination of the patient, discharge planning, medication reconciliation, and communication with other providers. [place] [address] Discharge Medical Patient Name: Deisy Gautam Unit Number: [id number] Date of : 1960 Patient Status: Admitted Inpatient Attending Doctor: Ifeoma Green DO DI: Medical v4 Discharge Instructions Date of Service Jun 05, 2017. Admission Reason for Admission: Chest Pain Discharge Discharge Diagnosis / Problem: chest pain Discharge Goals Goal(s): Specific goals (N/A-pt ) Activity Recommendations Activity Limitations: per Instructions/Follow-up section . Instructions / Follow-Up Instructions / Follow-Up pt -N/A Current Hospital Diet Patient's current hospital diet: AHA Diet (Heart Healthy) Discharge Diet Recommended Diet: N/A Pending Studies Studies pending at discharge: no Laboratory Results Lipid Panel Test 06/01/17 07:47 Range/Units Triglycerides Level 58 0-150 mg/dl Cholesterol Level 159 0-200 mg/dl HDL Cholesterol 57 mg/dl Cholesterol/HDL Ratio 2.8 LDL Cholesterol, Calculated 90 mg/dl Medical Emergencies . Who to Call and When: Medical Emergencies: If at any time you feel your situation is an emergency, please call 911 immediately. . Non-Emergent Contact Non-Emergency issues call your: Primary Care Provider . . "Provider Documentation" section prepared by Ifeoma Green. . VTE Core Measure Inpt VTE Proph given/why not?: Other Anticoagulation (on Eliquis ) Additional Copies To Rico Mota M.D.
[2017-06-05] MEDS ORDERED: SODIUM BICARB 8.4% INJ 50 MEQ/50 ML SYR IV ONE (14:48)
[2017-06-05] MEDS ORDERED: VASOPRESSIN 20 UNIT/ML VIAL IV ONE (14:48)
[2017-06-05] MEDS ORDERED: AMIODARONE HCL INJ 50 MG/ML 3 ML VIAL IV ONE (14:48)
[2017-06-05] MEDS ORDERED: DIAZEPAM INJ 5 MG/ML 2 ML CARP IV ONE (14:48)
[2017-06-05] MEDS ORDERED: CALCIUM CHLORIDE 10% 10 ML SYR IV ONE (14:48)
[2017-06-05] MEDS ORDERED: SUCCINYLCHOLINE CHLORIDE 20 MG/ML 10 ML VIAL IV ONE (14:48)
[2017-06-05] MEDS ORDERED: SODIUM CHLORIDE 0.9% 10ML FLUSH IV ONE (14:48)
== END 2017-06-05 14:49 | disposition expired | DRG 196 ==
LOC: EDBD 11:04 → C.EDC 11:06 → C.2T 12:31 → ENRESERV 12:48 → C.MSICU 06-01 16:07 → OBSVTOIN 06-01 21:30 → C.2T 06-03 13:15 → ENRESERV 06-03 13:37
PROVIDERS: ADMIT Hospitalist; ATTEND Hospitalist
PROC: 02HV33Z Insertion of Infusion Device into Superior Vena Cava, Percutaneous Approach (ICD-10-PCS; 2017-06-01)
PROC: B3101ZZ Fluoroscopy of Thoracic Aorta using Low Osmolar Contrast (ICD-10-PCS; principal; 2017-06-01 10:41)
PROC: B2111ZZ Fluoroscopy of Multiple Coronary Arteries using Low Osmolar Contrast (ICD-10-PCS; principal; 2017-06-01 10:41)
PROC: 4A023N7 Measurement of Cardiac Sampling and Pressure, Left Heart, Percutaneous Approach (ICD-10-PCS; principal; 2017-06-01 10:41)
PROC: 0BH17EZ Insertion of Endotracheal Airway into Trachea, Via Natural or Artificial Opening (ICD-10-PCS; 2017-06-05)
DX: D86.85 Sarcoid myocarditis (principal); J81.0 Acute pulmonary edema; I20.0 Unstable angina; E27.5 Adrenomedullary hyperfunction; Z68.41 Body mass index [BMI] 40.0-44.9, adult; I16.9 Hypertensive crisis, unspecified; I11.9 Hypertensive heart disease without heart failure; T50.8X5A Adverse effect of diagnostic agents, initial encounter; Y92.238 Other place in hospital as the place of occurrence of the external cause; I44.7 Left bundle-branch block, unspecified; I44.1 Atrioventricular block, second degree; I45.81 Long QT syndrome; D72.829 Elevated white blood cell count, unspecified; T38.0X5A Adverse effect of glucocorticoids and synthetic analogues, initial encounter; R93.9 Diagnostic imaging inconclusive due to excess body fat of patient; R09.02 Hypoxemia; W19.XXXA Unspecified fall, initial encounter; Y92.231 Patient bathroom in hospital as the place of occurrence of the external cause; D86.89 Sarcoidosis of other sites; E11.9 Type 2 diabetes mellitus without complications; M79.7 Fibromyalgia; E78.5 Hyperlipidemia, unspecified; J30.9 Allergic rhinitis, unspecified; F41.9 Anxiety disorder, unspecified; F32.9 Major depressive disorder, single episode, unspecified; E66.01 Morbid (severe) obesity due to excess calories; Z95.810 Presence of automatic (implantable) cardiac defibrillator; Z86.718 Personal history of other venous thrombosis and embolism; Z86.711 Personal history of pulmonary embolism; Z87.892 Personal history of anaphylaxis; Z79.01 Long term (current) use of anticoagulants; Z79.51 Long term (current) use of inhaled steroids; Z79.899 Other long term (current) drug therapy; Z91.041 Radiographic dye allergy status; Z88.4 Allergy status to anesthetic agent; Z88.0 Allergy status to penicillin; Z88.8 Allergy status to other drugs, medicaments and biological substances; Z91.048 Other nonmedicinal substance allergy status